=== PATIENT | female | born 1960 | race Caucasian/White ===

== ENCOUNTER 2016-05-31 18:12 | Inpatient (IN) | payer OTHER ==
[~2016-05-31] VITALS: Ht 154.9 cm; Wt 58.8 kg
[~2016-05-31 18:12] MED LIST: AMLO5TAB2 PO; AMT50T PO; ASPI-235 PO; ATOR40TA69 PO; CLOP75TA28 PO; DOXY-232 PO; ERGO500050 PO; HYDR-3740 PO; INSU100V7 SUBQ; LEVO100T97 PO; LISI-567 PO; METO25TA6 PO
[2016-05-31 18:27] VITALS: BP 132/76; PULSE 82; RESP 18; O2SAT 99
[2016-05-31] MEDS ORDERED: Ondansetron 2 mg/mL 2 mL Inj IVPUSH ONE (19:05)
[2016-05-31 19:13] LABS: BASOPHILS % (AUTO) 0.3 % (0-3); EOSINOPHILS % (AUTO) 1.7 % (0-5); Mean Corpuscular Hemoglobin 29.3 pg (27.0-35.0); NEUTROPHILS % (AUTO) 69.1 % (40-74); Platelet Count 436 bil/L (150-400)
--- NOTE | 2016-05-31 19:19 | ED.REPORT ---
HPI-Extremity Problem Lower Date of Service May 31, 2016 ED Provider: Chris Calderon MD Pt is a 55 y.o. female with a hx of DM who presents to the ED from the seo consultant with left foot pain and infected 5th toe. Pt was seen by Dr. Roy today around 1100 and he instructed the pt to come into the ED for antibiotics and pain control and that he would perform an OR amputation on her tomorrow at 1700. Pt states that she has been on a 14 day course of Bactrim that ended today. She denies fever, diaphoresis, and chills. She reports not recieving any pain medication today. Nursing Notes Stated Complaint: LEFT FOOT PAIN Chief Complaint: Extremity Trauma Nursing Notes Reviewed: Yes ([employer], [employer] not reconciled) Allergies: Coded Allergies: Adhesives (Verified Allergy, Severe, Rash, 05/31/16) Blisters, Paper tape okay cranberry (Verified Allergy, Severe, Anaphylaxis, 05/31/16) gabapentin (Verified Allergy, Severe, Neurologic symptoms, 05/31/16) Stroke like symptoms naproxen (Verified Allergy, Severe, RASH, 03/01/16) morphine (Verified Adverse Reaction, Severe, Rash, mouth blisters, 05/31/16) Uncoded Allergies: DISSOLVABLE SUTUTE (Allergy, Unknown, UNKNOWN, 10/30/12) Scheduled Amlodipine (Amlodipine) 5 Mg Tablet 5 MG PO DAILY Aspirin (Lite Coat Aspirin) 325 Mg Tablet 325 MG PO DAILY Atorvastatin Calcium (Atorvastatin Calcium) 40 Mg Tablet 40 MG PO HS Cholecalciferol (Vitamin D3) (Vitamin D3) 50,000 Unit Capsule 50,000 UNIT PO WEEKLY MONDAYS Clopidogrel (Clopidogrel) 75 Mg Tablet 75 MG PO DAILY Insulin Glargine (Lantus U100 Insulin Vial) 100 Unit/Ml Vial 30 UNIT SUBQ HS Levothyroxine (Synthroid) 100 Mcg Tablet 100 MCG PO QAM Lisinopril (Lisinopril) 20 Mg Tablet 20 MG PO DAILY Metoprolol Tartrate (Metoprolol Tartrate) 25 Mg Tablet 25 MG PO BID Trazodone (Trazodone) 50 Mg Tablet 50 MG PO HS Scheduled PRN Hydrocodone-Acetaminophen 5-325 mg (Hydrocodone-Acetaminophen 5-325 mg) 1 Each Tablet 1 EACH PO Q4H PRN PRN For Pain General Time Seen by MD: 19:01 Chief Complaint Foot injury left, Toe injury left 5 Hx Obtained From: Patient Arrived By: Walk-in Onset Occurred: Onset unknown Symptom Duration: Since onset Location: : Foot left: Toe left 5 Quality: Painful Severity: Current: Severe Past Medical History Past Medical History Notes: chronic pain, on chronic opiate usage 03/2016 Past Medical History MRSA (Facial cellulitits, buttock abscess) Dysphagia Sinus problems Peripheral vascular disease Pneumonia (2007) Hiatal hernia Back injury S/P knee scope Reports: Asthma, COPD, Coronary artery disease, Diabetes mellitus, Hyperlipidemia, Hypertension Past Surgical History Heart cath 2001 Heart cath w/ stenting 11/2011 Bilat shoulder repair L ring finger repair R index finger repair Reports: , Carotid endarterectomy, Cataract surgery, Cholecystectomy, Hysterectomy Reports: Carpal tunnel Smoking History Current Every Day Smoker Social History Alcohol Use: "Social" Drug Use: Denies drug use Occupation lives with best friend, retired from [employer] 04/13/2016 Ambulatory Status Independent Review of Systems Constitutional: Denies: Chills, Fever Musculoskeletal: Reports: Extremity pain (Left foot, left 5th toe) Skin: Denies Diaphoresis Complete sys rev & neg: except as marked. Physical Exam Initial Vital Signs Vital Signs (First) Date Time Temp Pulse Resp B/P Pulse Ox O2 Delivery O2 Flow Rate FiO2 05/31/16 18:27 36.1 82 18 132/76 99 Room Air Initial VS: Reviewed, Vital signs normal Head / Eyes: Atraumatic, Normocephalic Abdomen / GI: No distention Upper Extremities: Vascular intact, Neuro intact Skin: Warm, Dry, No cyanosis Neurologic: Alert, Oriented, Nonfocal Psychiatric: Mood/affect normal, Behavior normal, Normal thought content Lower Extremity / Pelvis / MS: Neurologic intact Ascending lypmhangitis below left knee. No appreciable gas. Diminished pulses of DP and PT Toe Exam : Toe Exam: Positive: Erythema present, Toe name... (L fifth) Left 5th toe, open wound and drainage present. General/Constitutional: Awake, Alert, Not toxic appearing Appearance / Presentation: Positive: Appears older than age, Cachectic, Frail, Uncomfortable Respiratory / Chest: Atraumatic, No respiratory distress, No rales, No rhonchi , No wheezing, No retractions Diminished Breath Sounds: Positive: Decreased bilateral Cardiovascular: Heart rate NL, Regular rhythm, Heart sounds NL, No gallop, No murmurs, No rubs Heart Rate / Rhythm: Negative: Tachycardia Interpretation & Diagnostics Lab Results Interpretation Result Diagram: 05/31/16 1905 05/31/16 1905 Test 05/31/16 19:05 05/31/16 19:49 White Blood Count 10.8th/mm3 (3.8-10.1) Red Blood Count 4.60mil/mm3 (3.90-5.20) Hemoglobin 13.5g/dL (12.0-15.6) Hematocrit 39.1% (35.0-46.0) Mean Corpuscular Volume 85.0fL (81-100) Mean Corpuscular Hemoglobin 29.3pg (27.0-35.0) Mean Corpuscular Hemoglobin Concent 34.5% (32.0-37.0) Red Cell Distribution Width 12.2% (12.3-15.4) Platelet Count 436bil/L (150-400) Neutrophils (%) (Auto) 69.1% (40-74) Lymphocytes (%) (Auto) 21.6% (14-46) Monocytes (%) (Auto) 7.0% (4-12) Eosinophils (%) (Auto) 1.7% (0-5) Basophils (%) (Auto) 0.3% (0-3) Erythrocyte Sedimentation Rate 57mm/hr (0-40) Prothrombin Time 9.4sec (8.1-12.5) Prothromb Time International Ratio 0.88ratio Sodium Level 132mEq/L (134-144) Potassium Level 4.0mEq/L (3.5-5.2) Chloride Level 93mEq/L (97-108) Carbon Dioxide Level 27mmol/L (18-29) Blood Urea Nitrogen 19mg/dL (6-24) Creatinine 0.75mg/dL (0.57-1.00) Estimat Glomerular Filtration Rate 115mL/min (>59) Glucose Level 314mg/dL (60-99) Lactic Acid Level 1.3mmol/L (0.4-2.0) Calcium Level 9.2mg/dL (8.5-10.1) Total Bilirubin 0.2mg/dL (0.0-1.2) Aspartate Amino Transf (AST/SGOT) 13U/L (0-50) Alanine Aminotransferase (ALT/SGPT) 11U/L (0-32) Alkaline Phosphatase 152U/L (25-150) Total Protein 7.4g/dL (6.4-8.4) Albumin 3.5g/dL (3.4-5.0) Hold [place] Top Tube Received (Received) Hold Urine Received (Received) X-Ray Interpretation Xray Interpretation: IMPRESSION: Findings suspicious for osteomyelitis of the proximal phalanx of the fifth digit with overlying soft tissue swelling suspicious for cellulitis. Dictated by: Elma Tang M.D. on 05/31/2016 at 20:11 Approved by: Elma Tang M.D. on 05/31/2016 at 20:11 X-Ray Ordered: Foot left Re-Eval/Medical Decision Source of Hx: Old records Consultation : Referral / Consult Name: Eddie Agee MD Call Returned at: 19:30 Planetarium Technician: Accepts admit Note: Discussed pt condition, accepts admit. Counseled Regarding: Diagnosis, Lab results, Need for admission Discharge & Departure Impression: Primary Impression: Diabetic foot infection Additional Impression: Ascending lymphangitis Disposition: ADMITTED TO HOSPITAL Discharge Condition All VS Reviewed: Yes Condition: Stable Referrals: Iraj Hunter (PCP) [place] Attestation Portions of this note were transcribed by Estevan Baires. I, Dr. Calderon personally performed the history, physical exam and medical decision-making; I reviewed and confirmed the accuracy of the information in the transcribed note. Signed by: Destiny Christopher, 05/31/2016 and 2108. copies to: Iraj Hunter Matthew F MD May 31, 2016 19:19 ESTEVAN BAIRES May 31, 2016 19:31
[2016-05-31] MEDS ORDERED: HYDR-4003 PO (19:20)
[2016-05-31] MEDS ORDERED: Vancomycin Dose per Pharmacist XX ONE (19:20)
[2016-05-31] MEDS ORDERED: Piperacillin-Tazo 3.375 Gm Inj 3.375 GM in Dextrose 5% Minibag Plus 50 ML IV ONE (19:20)
[2016-05-31] MEDS ORDERED: TRAZ-115 PO (19:20)
[2016-05-31] MEDS ORDERED: CHOL500050 PO (19:21)
[2016-05-31 19:32] LABS: ERYTHROCYTE SEDIMENTATION RATE 57 mm/hr (0-40)
[2016-05-31] MEDS: HYDROmorphone 1 mg/mL Inj IVPUSH PRN ×2 (19:32→20:05)
[2016-05-31 19:36] LABS: INR 0.88 ratio
[2016-05-31 20:08] VITALS: BP 105/57; PULSE 82; O2SAT 98
--- NOTE | 2016-05-31 20:12 | DRSVH ---
PROCEDURE: X-RAY LEFT FOOT COMPLETE, MINIMUM THREE VIEWS ([id number]) INDICATIONS: pain TECHNIQUE: 3 views of the foot were acquired. COMPARISON: None. FINDINGS: Bones: Cortical thinning and bony irregularity is present throughout the proximal phalanx of the fift h digit. These findings are most severe at the distal aspect of the proximal phalanx. No other bony a bnormalities. Soft tissues: There is marked soft tissue swelling of the fifth digit. Additionally, heterotopic ossi fication is present adjacent to the distal aspect of the proximal phalanx. IMPRESSION: Findings suspicious for osteomyelitis of the proximal phalanx of the fifth digit with ove rlying soft tissue swelling suspicious for cellulitis. Dictated by: Elma Tang M.D. on 05/31/2016 at 20:11 Approved by: Elma Tang M.D. on 05/31/2016 at 20:11
[2016-05-31 20:32] VITALS: BP 105/57; PULSE 82; O2SAT 98
[2016-05-31] MEDS ORDERED: 0.9% Sodium Chloride 1,000 ML IV SCH (20:44)
[2016-05-31] MEDS: Dextrose 5% 500 ML IV SCH (20:44)
[2016-05-31] MEDS ORDERED: Ondansetron 2 mg/mL 2 mL Inj IVPUSH PRN (20:45)
[2016-05-31] MEDS ORDERED: Alum-Mag Hydrox-Simeth 30 mL Suspension PO PRN (20:45)
[2016-05-31 21:03] LABS: APPEARANCE,URINE CLEAR (CLEAR,HAZY); COLOR,URINE YELLOW (YELLOW); OCCULT BLOOD,URINE NEGATIVE (NEGATIVE); UROBILINOGEN,URINE NORMAL (NORMAL)
--- NOTE | 2016-05-31 21:15 | PCM.HPMED ---
Subjective Date of Service May 31, 2016 Primary Provider: Admitting Physician: Eddie Agee MD Primary Care Physician: Iraj Hunter Attending Physician: Eddie Agee MD Chief Complaint: Left foot pain History of Present Illness: Pt is a 55 y.o. female with a hx of DM who presents to the ED from the hand tube bender with left foot pain and infected 5th toe. Pt was seen by Dr. Roy today around 1100 and he instructed the pt to come into the ED for antibiotics and pain control and that he would perform an OR amputation on her tomorrow at 1700. Pt states that she has been on a 14 day course of Bactrim that ended today. She denies fever, diaphoresis, and chills. She reports not recieving any pain medication today. Review of Systems: Gen.: No fevers chills weight loss weight gain Eyes: no visual disturbances or blurring vision HEENT: No nose/throat drainage, no pain in ears or throat, no hearing loss Lymph: No lymph nodes noted Cardiac: No chest pain, orthopnea, PND, palpitations , pedal edema or dyspnea on exertion Pulmonary: no cough, wheezing or bringing up of sputum GI: No anorexia nausea vomiting blood or black in the stool : no dysuria hematuria urinary frequency or decrease in urine output Musculoskeletal: Joint swelling no joint pain no new muscle aches or back pain Neuro: No syncope, seizures no loss of consciousness no new focal weakness, numbness or tingling Psychiatric: New new anxiety insomnia or depression Endocrine: No new heat or cold intolerances polyuria or polydipsia Hematology: No lymphadenopathy or easy bleeding or bruising noted skin: No new rashes, stasis dermatitis Allergies Coded Allergies: Adhesives (Verified Allergy, Severe, Rash, 05/31/16) Blisters, Paper tape okay cranberry (Verified Allergy, Severe, Anaphylaxis, 05/31/16) gabapentin (Verified Allergy, Severe, Neurologic symptoms, 05/31/16) Stroke like symptoms naproxen (Verified Allergy, Severe, RASH, 03/01/16) Amitriptyline (Verified Allergy, Intermediate, hypertension, 05/31/16) morphine (Verified Adverse Reaction, Severe, Rash, mouth blisters, 05/31/16) Uncoded Allergies: DISSOLVABLE SUTUTE (Allergy, Unknown, UNKNOWN, 10/30/12) Home Medications Amlodipine (Amlodipine) 5 Mg Tablet 5 MG PO DAILY Aspirin (Lite Coat Aspirin) 325 Mg Tablet 325 MG PO DAILY Atorvastatin Calcium (Atorvastatin Calcium) 40 Mg Tablet 40 MG PO HS Cholecalciferol (Vitamin D3) (Vitamin D3) 50,000 Unit Capsule 50,000 UNIT PO WEEKLY MONDAYS Clopidogrel (Clopidogrel) 75 Mg Tablet 75 MG PO DAILY Insulin Glargine (Lantus U100 Insulin Vial) 100 Unit/Ml Vial 30 UNIT SUBQ HS Levothyroxine (Synthroid) 100 Mcg Tablet 100 MCG PO QAM Lisinopril (Lisinopril) 20 Mg Tablet 20 MG PO DAILY Metoprolol Tartrate (Metoprolol Tartrate) 25 Mg Tablet 25 MG PO BID Trazodone (Trazodone) 50 Mg Tablet 50 MG PO HS Scheduled PRN Hydrocodone-Acetaminophen 5-325 mg (Hydrocodone-Acetaminophen 5-325 mg) 1 Each Tablet 1 EACH PO Q4H PRN PRN For Pain PMH Type 2 diabetes. hypertension. History of MRSA with facial cellulitis, buttocks abscess. Peripheral vascular disease. History of cardiac cath with stenting 2011. History of bilateral shoulder repair. History of . R Carotid endarterectomy. SOCIAL HISTORY: Smoking half pack per day. Alcohol occasional. Denies any other drug use. FAMILY MEDICAL HISTORY: History of diabetes present in family. Social History Hx Alcohol Use: Yes (1 per week) Hx Substance Use: No (positive urine tox screen 12/2015 for meth,amphetamines, benzo) Hx Tobacco Use: Yes (1-1.5 pack per day) Smoking Status: Current Every Day Smoker Exam Vital Signs Vital Sign - Last Date Time Temp Pulse Resp B/P Pulse Ox O2 Delivery O2 Flow Rate FiO2 05/31/16 20:32 82 105/57 98 Room Air 05/31/16 18:27 36.1 18 Exam Gen.- A+ O 3 no apparent distress. Eyes- open conjunctiva clear, pupils equal nonicteric ENT- ears normal, nose normal Neck- supple/trach midline CVS- RRR no murmur or gallop Lungs CTA GI- NABS/NT soft Musc- moving 4 no obvious deformity Neuro- cranial nerves II through XII intact to gross examination, nonfocal Skin- warm and dry Psych- pleasant and appropriate, Lab and Diagnostics Labs AST/ALT WNL, alkaline phosphatase 152, PT/INR 9.4/0.88, UA clear Result Diagram: 05/31/16190405/31/161904 X-Rays, CTs and MRIs X-RAY LEFT FOOT COMPLETE, MINIMUM THREE VIEWS Findings suspicious for osteomyelitis of the proximal phalanx of the fifth digit with overlying soft tissue swelling suspicious for cellulitis. 12-lead ECG No EKG, one will be ordered preop Assessment & Plan 55-year-old diabetic smoker sent in by the dietary, Dr Ryo, for intervention probably disarticulation fifth digit left foot. We will get preop EKG. She tells me she has not been taking Plavix so she can probably go to surgery it has been 2 weeks. Not clear whether she has been taking her aspirin. Osteomyelitis left foot-apparently patient already had ascending lymphangitis but is clinically much better now. He is gotten dose of Zosyn and vancomycin I am going to continue those until postoperative. Ordering Doppler studies arterial of legs probably ABIs as well as patient is having surgery and having ample blood flow in order to get good healing is essential in assessing where procedure should be instituted how high up. Diabetes-check HG A1c, I am lowering her Lantus dose to 20 units and adding prandial insulin along with medium dose sliding scale. Htn/lipids/cad-continue home lisinopril, metoprolol, atorvastatin. Since it has been over 4 years since her last stent I think she can discontinue her clopidogrel gel altogether but should resume her aspirin immediately postoperatively. Neuropathy/acute pain-patient is had adverse reaction now allergy to Elavil and did not tolerate gabapentin, trying Lyrica. SUPERVISOR EPOXY FABRICATION written from emergency room Tobacco abuse-recommended cessation, nicotine replacement Cerebrovascular disease-patient wants to know how her carotids are doing, she was due a few years ago she states so getting demetrio-carotid Doppler to assess her R-sided CEA and to see if there has been progression of the 60+% stenosis she says she had on the left. Constipation-vigorous bowel regimen with Senokot and Colace and Dulcolax and milk of magnesia when necessary Prophylaxis-DVT Lovenox postop when approved by surgery. Possibly SCD on the right but certainly not the left, GI prophylaxis with famotidine Disposition- patient is from home she is a full code Greater in 60 minutes spent admitting this medically complex patient Eddie Agee MD May 31, 2016:15
[2016-05-31 21:24] VITALS: BP 110/61; PULSE 89; RESP 20; O2SAT 97
[2016-05-31] MEDS ORDERED: Polyethylene Glycol (PEG) 17 Gm Powder PO PRN (21:25)
[2016-05-31] MEDS ORDERED: Insulin GLARgine 100 Unit/mL Syringe SUBQ ONE (22:00)
[2016-05-31] MEDS: HYDROcodone-APAP 5-325 mg Tablet PO PRN (22:08)
[2016-05-31] MEDS: 0.9% Sodium Chloride 1,000 ML IV SCH (22:09)
[2016-05-31] MEDS: HYDROmorphone PCA 0.2 mg/mL 30 mL Inj IV PRN (22:23)
[2016-05-31] MEDS ORDERED: Magnesium Hydroxide 355 mL Oral Suspension PO PRN (23:05)
--- NOTE | 2016-05-31 23:08 | NUR ---
Admit report received from Fadia Donovan in the ED Pt arrived on the unit at 1429. pt arrived to room 248 via gurney with ER staff, she was able to stand and transfer herself to the bed. VSS. Oxygen sats stable on RA, denies SOB. Reports 7/10 pain in her left toes. Gave PO pain medication and started IV AIR CREW OFFICER per order. CPOX on. IV fluids infusing at 100ml/hr. Alert and oriented x3. . oriented to room, and how to use the telephone in her room. will continue to monitor.
[2016-05-31] MEDS ORDERED: Glucose 40% Oral Gel 15 Gm Tube PO PRN (23:10)
[2016-06-01] VITALS (16 sets, daily range): BP systolic 94–149; BP diastolic 53–83; PULSE 79–104; RESP 12–18; O2SAT 95–100
[2016-06-01] MEDS: Sodium Chloride LOK Flush 10 mL Syringe IVFLUSH SCH ×3 (00:30→15:56)
--- NOTE | 2016-06-01 02:13 | PCM.CONPHA ---
Subjective Date of Service: Jun 01, 2016 Requesting Provider: Eddie Agee MD Reason for Pharmacy Consult: Vancomycin Dosing Objective Vital Signs Date Time Temp Pulse Resp B/P Pulse Ox O2 Delivery O2 Flow Rate FiO2 06/01/16 01:25 36.7 84 18 118/68 99 Room Air 05/31/16 21:24 37.1 89 20 110/61 97 Room Air 05/31/16 20:32 82 105/57 98 Room Air 05/31/16 20:08 82 105/57 98 Room Air 05/31/16 18:27 36.1 82 18 132/76 99 Room Air Weight (Kilograms): 58.800 Height (Feet): 5 Height (Inches): 1.00 Test 05/31/16 19:05 05/31/16 19:49 White Blood Count 10.8th/mm3 (3.8-10.1) Red Blood Count 4.60mil/mm3 (3.90-5.20) Hemoglobin 13.5g/dL (12.0-15.6) Hematocrit 39.1% (35.0-46.0) Mean Corpuscular Volume 85.0fL (81-100) Mean Corpuscular Hemoglobin 29.3pg (27.0-35.0) Mean Corpuscular Hemoglobin Concent 34.5% (32.0-37.0) Red Cell Distribution Width 12.2% (12.3-15.4) Platelet Count 436bil/L (150-400) Neutrophils (%) (Auto) 69.1% (40-74) Lymphocytes (%) (Auto) 21.6% (14-46) Monocytes (%) (Auto) 7.0% (4-12) Eosinophils (%) (Auto) 1.7% (0-5) Basophils (%) (Auto) 0.3% (0-3) Erythrocyte Sedimentation Rate 57mm/hr (0-40) Prothrombin Time 9.4sec (8.1-12.5) Prothromb Time International Ratio 0.88ratio Sodium Level 132mEq/L (134-144) Potassium Level 4.0mEq/L (3.5-5.2) Chloride Level 93mEq/L (97-108) Carbon Dioxide Level 27mmol/L (18-29) Blood Urea Nitrogen 19mg/dL (6-24) Creatinine 0.75mg/dL (0.57-1.00) Estimat Glomerular Filtration Rate 115mL/min (>59) Glucose Level 314mg/dL (60-99) Lactic Acid Level 1.3mmol/L (0.4-2.0) Calcium Level 9.2mg/dL (8.5-10.1) Total Bilirubin 0.2mg/dL (0.0-1.2) Aspartate Amino Transf (AST/SGOT) 13U/L (0-50) Alanine Aminotransferase (ALT/SGPT) 11U/L (0-32) Alkaline Phosphatase 152U/L (25-150) Total Protein 7.4g/dL (6.4-8.4) Albumin 3.5g/dL (3.4-5.0) Hold [place]ado Top Tube Received (Received) Urine Color Yellow (YELLOW) Urine Appearance Clear (CLEAR,HAZY) Urine pH 6.0 (5.0-8.0) Urine Specific [place] 1.010 (1.003-1.035) Urine Protein Negativemg/dL (NEG,TRACE) Urine Glucose (UA) 1000mg/dL (NEGATIVE) Urine Ketones Negativemg/dL (NEGATIVE) Urine Occult Blood Negative (NEGATIVE) Urine Nitrite Negative (NEGATIVE) Urine Bilirubin Negative (NEGATIVE) Urine Urobilinogen Normalmg/dL (NORMAL) Urine Leukocyte Esterase Negative (NEGATIVE) Urine RBC 0-2/hpf (0-2) Urine WBC 0-5/hpf (0-5) Urine Epithelial Cells Occasional/hpf (NONE-MOD) Urine Crystals None seen (NONE SEEN) Urine Bacteria None/hpf (NONE-FEW) Urine Hyaline Casts None/lpf (NONE) Urine Granular Casts None seen (NONE SEEN) Urine Waxy Casts None seen (NONE SEEN) Urine Red Blood Cell Casts None seen (NONE SEEN) Urine White Blood Cell Casts None seen (NONE SEEN) Urine Mucus None seen (None Seen) Urine Trichomonas None seen (NONE SEEN) Urine Yeast None (NONE SEEN) Urinalysis Comment None Urine Culture Reflexed Not indicated Hold Urine Received (Received) Assessment/Plan Assessment/Plan A: * Vancomycin dosing for 55 y/o diabetic woman with osteomyelitis of the foot * The patient received a vancomycin 1250 mg IV loading dose in the ED * She is also being started on Zosyn * Estimated CrCl is 63 mL/min (Cockcroft & Gault) * Estimated vancomycin half-life is 12 hours and estimated Vd is 41 liters P: * Dosing vancomycin at 750 mg IV every 12 hours * This dose is estimated to result in a trough of about 19 mcg/mL * Target vancomycin trough range of 15 - 20 mcg/mL * Drawing a trough level prior to the fourth dose Thank you. Pharmacy will continue to follow. Gala Lee, PharmD Gala Lee Jun 01, 2016 02:13
[2016-06-01] MEDS: Piperacillin-Tazo 3.375 Gm Inj 3.375 GM in Dextrose 5% Minibag Plus 50 ML IV SCH ×3 (03:16→22:26)
[2016-06-01] MEDS: Insulin LISPRO 300 Unit/3 mL Inj SUBQ SCH ×5 (08:00→22:00)
[2016-06-01] MEDS: Vancomycin Dose per Pharmacist XX SCH (08:30)
[2016-06-01] MEDS ORDERED: Famotidine Inj 20 MG in IV Premix 1 EACH IV SCH (08:30)
--- NOTE | 2016-06-01 09:03 | NUR ---
Social Work: Screening Data: Pt is a 55 y/o female admitted for diabetic foot infection. Pt's PCP is Dr Hunter, pt's insurance is [employer]. Pt readmit score is not listed. EMR reviewed, no d/c planning needs anticipated at this time. PAYROLL AND BENEFITS ASSISTANT will follow for possible ABX need. PAYROLL AND BENEFITS ASSISTANT will continue to follow if needs arise. Assessment: Pt who is independent at baseline. Plan: Pt will d/c home via POV when medically stable. PAYROLL AND BENEFITS ASSISTANT will follow for possible ABX need. No d/c planning needs anticipated at this time. PAYROLL AND BENEFITS ASSISTANT will continue to follow if needs arise. LALIT Gunderson
[2016-06-01] MEDS: 0.9% Sodium Chloride 1,000 ML IV SCH ×2 (09:18→17:22)
[2016-06-01 09:59] LABS: Mean Corpuscular Hemoglobin 29.2 pg (27.0-35.0); Mean Corpuscular Volume 86.5 fL (81-100)
--- NOTE | 2016-06-01 10:53 | DRSVH ---
PROCEDURE: US DUPLEX DOPPLER UNILATERAL LEG ARTERIES, LEFT INDICATIONS: history of stenosis left, endarterectomy right TECHNIQUE: Color and pulse Doppler interrogation was performed of the left lower extremity arterial system, with image documentation. COMPARISON: None. FINDINGS: Vascular Ultrasound Procedure Report Findings(Artery of Lower Extremity)(Left) Common Femoral Artery(Distal) Velocity: 240.40 cm/s Profunda Femoris Artery(Proximal) Velocity: 99 cm/s Superficial Femoral Artery(Proximal) Velocity: 193.20 cm/s, 232.50 cm/s Superficial Femoral Artery(Mid-longitudinal) Velocity: 105.30 cm/s, 152 cm/s, 165.70 cm/s Superficial Femoral Artery(Distal) Velocity: 98.30 cm/s Popliteal Artery(Mid-longitudinal) Velocity: 209.40 cm/s Posterior Tibial Artery(Distal) Velocity: 14.70 cm/s Dorsalis Pedis Artery(Distal) Velocity: 68.80 cm/s Greyscale findings: Significant plaque is identified IMPRESSION: 1. Increased velocity focus within the popliteal artery suggestive of moderate stenosis. If clinicall y indicated, MRA may be obtained for additional evaluation. 2. Monophasic flow is noted throughout significant portions of lower extremity suggestive of diffuse disease. Dictated by: Kari Oates M.D. on 06/01/2016 at 10:52 Approved by: Kari Oates M.D. on 06/01/2016 at 10:52
--- NOTE | 2016-06-01 10:55 | DRSVH ---
PROCEDURE: US BILATERAL DUPLEX DOPPLER IMAGING OF THE CAROTIDS ([id number]) INDICATIONS: history of stenosis left, endarterectomy right TECHNIQUE: Color and pulse Doppler interrogation was performed of both carotid systems, with image documentation and velocity measurements. COMPARISON: None. FINDINGS: All stenosis calculations are based on NASCET criteria. Right side: Brachial blood pressure: 139/72 mm Hg. Common Carotid Artery(Distal) PSV: 98.20 cm/s Internal Carotid Artery PSV- Proximal: 96.50 cm/s Mid-lon.70 cm/s Distal: 98.20 cm/s EDV - Proximal: 28.60 cm/s Mid-lon.80 cm/s Distal: 37 cm/s External Carotid Artery(Proximal) PSV: 265.30 cm/s ICA/CCA PSV ratio: 1.0 Crooks scale imaging description: Minimal plaque at the bifurcation. Percent internal carotid artery stenosis: Less than 50%. Vertebral artery: Flow direction is antegrade. Left side: Brachial blood pressure: Not obtained Common Carotid Artery(Distal) PSV: 96.90 cm/s Internal Carotid Artery PSV - Proximal: 281.30 cm/s Mid-lon.90 cm/s Distal: 128.50 cm/s EDV - Proximal: 64.80 cm/s Mid-lon.20 cm/s Distal: 21.60 cm/s External Carotid Artery(Proximal) PSV: 225.80 cm/s ICA/CCA PSV ratio: 2.9 Crooks scale imaging description: Moderate to severe plaque at the bifurcation. Percent internal carotid artery stenosis: 70% to near occlusion. Vertebral artery: Flow direction is antegrade. IMPRESSION: 1. Less than 50% stenosis of the internal carotid artery on the right and 70% to near occlusion on th e left. Dictated by: Kari Oates M.D. on 06/01/2016 at 10:54 Approved by: Kari Oates M.D. on 06/01/2016 at 10:54
[2016-06-01] MEDS ORDERED: fentaNYL-PF 50 mCg/mL 2 mL Inj ONE (12:48)
[2016-06-01] MEDS ORDERED: Lidocaine PF 1% 30 mL Inj ONE (13:27)
[2016-06-01] MEDS ORDERED: Propofol 10,000 mCg/mL 20 mL Inj ONE (13:27)
[2016-06-01] MEDS: HYDROmorphone PCA 0.2 mg/mL 30 mL Inj IV PRN (14:02)
--- NOTE | 2016-06-01 17:36 | PCM.HPANE ---
Patient Data Date of Service: Jun 01, 2016 Surgeon Admitting Provider:Eddie Agee MD Attending Provider:Eddie Agee MD Primary Care Physician:Iraj Hunter Other Provider: Reason for Visit Diabetic Foot Infection Ht/WT & BMI Height (Feet): 5 Height (Inches): 1.00 Weight (Kilograms): 58.800 Body Mass Index 24.47 Allergies Coded Allergies: Adhesives (Verified Allergy, Severe, Rash, 05/31/16) Blisters, Paper tape okay cranberry (Verified Allergy, Severe, Anaphylaxis, 05/31/16) gabapentin (Verified Allergy, Severe, Neurologic symptoms, 05/31/16) Stroke like symptoms naproxen (Verified Allergy, Severe, RASH, 03/01/16) amitriptyline (Verified Allergy, Intermediate, hypertension, 05/31/16) morphine (Verified Adverse Reaction, Severe, Rash, mouth blisters, 05/31/16) Uncoded Allergies: DISSOLVABLE SUTUTE (Allergy, Unknown, UNKNOWN, 10/30/12) Past Anesthesia History Anesthesia History: Denies:: Abnormal Airway, Anesthesia Reactions, Difficult Intubation, Fam Anesthesia Reaction, Fam Malignant Hypertherm Diabetes History Hx Diabetes?: Yes Type of Diabetes: Type II Glycemic Control: Insulin Dependent Current Bedside Blood Glucose: 214 MRSA MRSA: Yes (FACIAL CELLULITIS,BUTTOCK ABCESS, NARES) Medications Hypertension Medication: Yes Date Beta Bobo Taken: Jun 01, 2016 Time Beta Bobo Taken: 09:31 Active Scripts Insulin Glargine (Lantus U100 Insulin Vial)100 Unit/Ml Vial30 Unit SUBQ HS 30 Days Prov:Pancho Zacarias MD 04/17/16 Clopidogrel 75 Mg Umpxsk02 Mg PO DAILY #30 TABLET Prov:Pancho Zacarias MD 04/17/16 Metoprolol Tartrate 25 Mg Phozse97 Mg PO BID #60 TABLET Prov:Pancho Zacarias MD 04/17/16 Atorvastatin Calcium 40 Mg Qpjznj01 Mg PO HS #30 TABLET Prov:Pancho Zacarias MD 04/17/16 Amlodipine 5 Mg Tablet5 Mg PO DAILY #30 TABLET Prov:Pancho Zacarias MD 04/17/16 Lisinopril 20 Mg Tuvcfk62 Mg PO DAILY #30 TABLET Ref 0 Prov:Pancho Zacarias MD 04/17/16 Reported Medications Cholecalciferol (Vitamin D3) (Vitamin D3)50,000 Unit Euiwmte95,000 Unit PO WEEKLY Mondays05/31/16 Hydrocodone-Acetaminophen 5-325 mg 1 Each Tablet1 Each PO Q4H PRN For Pain 05/31/16 Trazodone 50 Mg Fugzyt38 Mg PO HS 05/31/16 Aspirin (Lite Coat Aspirin)325 Mg [id number] Mg PO DAILY 04/13/16 Levothyroxine (Synthroid)100 Mcg [id number] Mcg PO QAM Ref 0 02/28/16 Discontinued Reported Medications Amitriptyline 50 Mg Tab50 Mg PO HS Ref 0 04/13/16 Ergocalciferol (Vitamin D2) (Drisdol)50,000 Unit Diyeiau75,000 Unit PO Q7D Sunday02/28/16 Discontinued Scripts Doxycycline Monohyd 100 Mg Ojfypf241 Mg PO BID #14 TABLET Ref 0 Prov:Pancho Zacarias MD 04/17/16 Hydrocodone-Acetaminophen 10-325 mg 1 Each Tablet1 Tablet PO Q4H PRN For Pain # 10 TABLET Prov:Pancho Zacarias MD 04/17/16 History History of ENT Problems?: Yes HEENT History: Positive for:: Cataracts (removed 06/2014) Dysphagia (difficulty swallowing, no hx choking) Sinus Problem (MRSA) Denies:: Abnormal Airway Difficult Intubation Hearing Problem (left ear draining lesion current admission problem) TMJ Hx of Heart Problems?: Yes Cardiovascular History: Positive for:: Cardiac Surgery (stents) Chest Pain (Hx of 4 cardiac stents) Edema Hypertension Denies:: AICD Abdominal Aortic Aneurism Atrial Fibrillation Congestive Heart Failure Heart Murmur Irregular Heartbeat Pacemaker Rheumatic Fever Thrombophlebitis Valvular Heart Disease Hx of Respiratory Problem?: Yes Respiratory History: Positive for:: Cough Pneumonia (pst hx of) Denies:: Asthma COPD Chest Surgery Dyspnea Emphysema Hemoptysis Oxygen Administration Pulmonary Embolism Tuberculosis Use of C-PAP Machine (does not tolerate) Hx Neurologic Problems?: No Neurological History: Denies:: Alzheimer's Disease CVA Dementia Dizziness Headaches Multiple Sclerosis Parkinson's Disease Seizures Hx of GI Problems?: No Gastrointestinal History: Denies:: Cirrhosis Diverticulitis Gastroesphageal Reflux Gastrointestinal Bleeding Heartburn Hepatitis Hiatal Hernia Rectal Bleeding Hx of Problems?: No Genitourinary History: Positive for:: Urinary Tract Infection (past hx of) Denies:: HX of Hemodialysis Kidney Stones HX of Peritoneal Dialysis: No Female Hx: Positive for:: Problems with Breasts? (hx breast cyst) Denies:: Currently Endometriosis Pelvic Inflammatory Skin History: Positive for:: History Skin Disorders? (draining wound left ear) Denies:: Pressure Ulcers Hx Musculoskeletal Problems?: Yes Musculoskeletal History: Positive for:: Back Injury (degenerative disk disease ) Musculoskeletal Trauma Denies:: Degenerative Joint Joint Replacement Systemic Lupus Hx of Psycho/Social Problems?: No Psycho Social History: Denies:: Anxiety Bipolar Disorder Hx Depression Suicide Attempt Hx Surgeries?: Yes (RT CAROTID ENDART,JOSE MARIA,HYST,C/S,CTR,KNEE SCOPE,BILAT SHOULDER RPRS,LT RING) Hx Any Other Health Problems?: Yes Other History: Positive for:: Hospitalization Thyroid Disease (hypothyroidism) Denies:: Cancer Endocrine Disease History Blood Transfusions: Positive for:: Accept Blood Products? Denies:: Blood Transfuse Reaction Blood Transfusions Hx Diabetes: YesBedside Blood Glucose: 214 Hx Alcohol Use: Yes (1 per week)Hx Substance Use: Yes (positive urine tox screen 12/2015 for meth,amphetamines,benzo) Smoking Status: Current Every Day Smoker Have You Smoked inLast 12 mo: Yes Stop/Bang Treated for Sleep Apnea?: No Do You Have a CPAP Machine?: No S-Snoring: Do You Snore Loudly: No T-Tired: feel tired, fatigued: Yes O-Obsered: Observed not breath: No P-Blood Pressure: treated: Yes B- Body Mass Index > 35 kg/m2: No A- Age over 50: Yes N- Neck Large Circumference: No G- Gender Male: No TEJINDER Total Score: 2 TEJINDER Risk Assessment: Low Risk, <3 Yes Risk Assessment Category Category 1A: Patient has history of documented sleep apnea, and HAS NOT received any narcotic, sedative or anesthesia administration during this stay. Category 1B: Patient has history of documented sleep apnea, and HAS received any narcotic , sedative or anesthesia administration during this stay Category 2: Patient has SUSPECTED Obstructive Sleep Apnea, and HAS received any narcotic , sedative or anesthesia administration during this stay. Category 3: Patient has SUSPECTED Obstructive Sleep Apnea and HAS NOT received narcotic, sedative or anesthesia administration during this stay. Category 4: Outpatient in Procedural Areas with known sleep apnea or who screen positive for High Risk via the STOP/BANG questionnaire. Exam Exam Vital Signs Vital Signs Date Time Temp Pulse Resp B/P Pulse Ox O2 Delivery O2 Flow Rate FiO2 06/01/16 16:59 18 97 06/01/16 15:36 36.8 82 18 94/53 97 Room Air General Appearance: Alert, Oriented X3, Cooperative HEENT/AIRWAY: MP 2, Neck Movement (OK), Mouth Opening (Wide, poor dentition) Lungs: Clear to Auscultation, Normal Air Movement Heart: Regular Rate/Rhythm, Normal S1, Normal S2 Meds/Labs/Diagnostics Admission Meds Current Medications Ondansetron HCl 4 mg 4 mg ONCE ONCE IVPUSH Last administered on 05/31/16 19:29 ; Start 05/31/16 at 19:05; Stop 05/31/16 at 19:06; Status DC Piperacillin Sod/ Tazobactam Sod/ Dextrose/Water (Zosyn 3.375 Gm Inj/D5W Minibag Plus) 50 ml @ 100 mls/hr ONCE ONCE IV Last administered on 05/31/16 19:49; Start 05/31/16 at 19:20; Stop 05/31/16 at 19:49; Status DC Pharmacy Consult (Pharmacist Managed Vancomcyin) 1 ea ONCE ONCE XX Last administered on 05/31/16 20:05; Start 05/31/16 at 19:20; Stop 05/31/16 at 19:55; Status DC Nicotine 1 patch 1 patch ONCE ONCE TOPICAL Last administered on 05/31/16 20:05 ; Start 05/31/16 at 19:45; Stop 05/31/16 at 19:46; Status DC Vancomycin HCl/ Dextrose/Water (Vancocin Inj/ D5W) 250 ml @ 166.667 mls/hr OT ONCE IV Last administered on 05/31/16 20:19; Start 05/31/16 at 20:00; Stop at 21:29; Status DC Sodium Chloride 10 ml 10 ml Q8H IVFLUSH Last administered on 06/01/16 09:32; Start 06/01/16 at 00:30 Sodium Chloride (Normal Saline) 1,000 ml @ 100 mls/hr Q10H IV Last administered on 06/01/16 09:18; Start 05/31/16 at 21:22 Famotidine (Pepcid) 20 mg BID PO Last administered on 06/01/16 09:31; Start 06/01/16 at 08:30 Nicotine (Nicoderm 21 mg/ 24 Hr Patch) 1 patch DAILY TOPICAL Last administered on 06/01/16 09:32; Start 06/01/16 at 08:30 Amlodipine Besylate (Norvasc) 5 mg DAILY PO Last administered on 06/01/16 08:30 ; Start 06/01/16 at 08:30 Aspirin (Aspirin) 325 mg DAILY PO Last administered on 06/01/16 09:32; Start at 08:30 Levothyroxine Sodium (Synthroid) 100 mcg 0630 PO Last administered on 06/01/16 06:47; Start 06/01/16 at 06:30 Lisinopril (Zestril) 20 mg DAILY PO Last administered on 06/01/16 09:32; Start 06/01/16 at 08:30 Metoprolol Tartrate (Lopressor) 25 mg BID PO Last administered on 06/01/16 09: 31; Start 06/01/16 at 08:30 Insulin Glargine 10 unit 10 unit HS ONCE SUBQ Last administered on 05/31/16 23 :18; Start 05/31/16 at 22:00; Stop 05/31/16 at 22:01; Status DC Piperacillin Sod/ Tazobactam Sod/ Dextrose/Water (Zosyn 3.375 Gm Inj/D5W Minibag Plus) 50 ml @ 12.5 mls/hr Q8H IV Last administered on 06/01/16 12:18; Start 06/01/16 at 04:00 Pregabalin (Lyrica) 25 mg BID PO Last administered on 06/01/16 09:32; Start 06/01/16 at 08:30 Senna (Senokot) 17.2 mg BID PO Last administered on 06/01/16 09:31; Start at 08:30 Pharmacy Consult 1 ea 1 ea DAILY XX Last administered on 06/01/16 08:30; Start 06/01/16 at 08:30 Vancomycin HCl/ Dextrose/Water (Vancocin Inj/ D5W) 250 ml @ 166.667 mls/hr Q12 IV Last administered on 06/01/16 09:19; Start 06/01/16 at 08:30 Trazodone HCl (Trazodone) 50 mg OT ONCE PO Last administered on 06/01/16t 03:13 ; Start 06/01/16 at 03:10; Stop 06/01/16 at 03:12; Status DC Bedside Blood Glucose: 214 Labs Test 05/31/16 19:05 05/31/16 19:49 06/01/16 09:10 Neutrophils (%) (Auto) 69.1% (40-74) Lymphocytes (%) (Auto) 21.6% (14-46) Monocytes (%) (Auto) 7.0% (4-12) Eosinophils (%) (Auto) 1.7% (0-5) Basophils (%) (Auto) 0.3% (0-3) Erythrocyte Sedimentation Rate 57mm/hr (0-40) Prothrombin Time 9.4sec (8.1-12.5) Prothromb Time International Ratio 0.88ratio Lactic Acid Level 1.3mmol/L (0.4-2.0) Total Bilirubin 0.2mg/dL (0.0-1.2) Aspartate Amino Transf (AST/SGOT) 13U/L (0-50) Alanine Aminotransferase (ALT/SGPT) 11U/L (0-32) Alkaline Phosphatase 152U/L (25-150) Total Protein 7.4g/dL (6.4-8.4) Albumin 3.5g/dL (3.4-5.0) Hold [place] Top Tube Received (Received) Urine Color Yellow (YELLOW) Urine Appearance Clear (CLEAR,HAZY) Urine pH 6.0 (5.0-8.0) Urine Specific [place] 1.010 (1.003-1.035) Urine Protein Negativemg/dL (NEG,TRACE) Urine Glucose (UA) 1000mg/dL (NEGATIVE) Urine Ketones Negativemg/dL (NEGATIVE) Urine Occult Blood Negative (NEGATIVE) Urine Nitrite Negative (NEGATIVE) Urine Bilirubin Negative (NEGATIVE) Urine Urobilinogen Normalmg/dL (NORMAL) Urine Leukocyte Esterase Negative (NEGATIVE) Urine RBC 0-2/hpf (0-2) Urine WBC 0-5/hpf (0-5) Urine Epithelial Cells Occasional/hpf (NONE-MOD) Urine Crystals None seen (NONE SEEN) Urine Bacteria None/hpf (NONE-FEW) Urine Hyaline Casts None/lpf (NONE) Urine Granular Casts None seen (NONE SEEN) Urine Waxy Casts None seen (NONE SEEN) Urine Red Blood Cell Casts None seen (NONE SEEN) Urine White Blood Cell Casts None seen (NONE SEEN) Urine Mucus None seen (None Seen) Urine Trichomonas None seen (NONE SEEN) Urine Yeast None (NONE SEEN) Urinalysis Comment None Urine Culture Reflexed Not indicated Hold Urine Received (Received) White Blood Count 7.3th/mm3 (3.8-10.1) Red Blood Count 4.08mil/mm3 (3.90-5.20) Hemoglobin 11.9g/dL (12.0-15.6) Hematocrit 35.3% (35.0-46.0) Mean Corpuscular Volume 86.5fL (81-100) Mean Corpuscular Hemoglobin 29.2pg (27.0-35.0) Mean Corpuscular Hemoglobin Concent 33.7% (32.0-37.0) Red Cell Distribution Width 12.1% (12.3-15.4) Platelet Count 368bil/L (150-400) Sodium Level 131mEq/L (134-144) Potassium Level 4.6mEq/L (3.5-5.2) Chloride Level 96mEq/L (97-108) Carbon Dioxide Level 22mmol/L (18-29) Blood Urea Nitrogen 18mg/dL (6-24) Creatinine 0.69mg/dL (0.57-1.00) Estimat Glomerular Filtration Rate 126mL/min (>59) Glucose Level 223mg/dL (60-99) Calcium Level 8.6mg/dL (8.5-10.1) Plan Impression Patient chart reviewed, patient interviewed and anesthestic plan with risks, benefits, and alternatives discussed, and informed consent obtained. NPO Status: > 8 hours ASA Physical Status: ASA3 Severe Disease Anesthetic Plan: MAC Bene/Risks/Altern/Consents: Yes HP Complete Prior to Induction: Yes Cristi Wang MD Jun 01, 2016 17:15
[2016-06-01] MEDS ORDERED: Lactated Ringer's 1,000 ML IV SCH (17:52)
[2016-06-01] MEDS ORDERED: Lactated Ringer's 500 ML IV PRN (17:52)
[2016-06-01] MEDS ORDERED: Dexamethasone 4 mg/mL Inj IVPUSH PRN (17:55)
[2016-06-01] MEDS ORDERED: hydrALAZINE 20 mg/mL Inj IVPUSH PRN (17:55)
[2016-06-01] MEDS ORDERED: Atropine 0.4 mg/mL Inj IVPUSH PRN (17:55)
[2016-06-01] MEDS ORDERED: fentaNYL-PF 50 mCg/mL 2 mL Inj IVPUSH PRN (17:55)
[2016-06-01] MEDS ORDERED: EPHEDrine Sulfate 50 mg/mL Inj IVPUSH PRN (17:55)
[2016-06-01] MEDS ORDERED: Labetalol 5 mg/mL 4 mL Inj IV PRN (17:55)
[2016-06-01] MEDS ORDERED: Phenylephrine 10,000 mCg/mL Inj IVPUSH PRN (17:55)
[2016-06-01] MEDS ORDERED: MetoCLOpramide 5 mg/mL 2 mL Inj IVPUSH PRN (17:55)
[2016-06-01] MEDS ORDERED: HYDROmorphone 1 mg/mL Inj IVPUSH PRN (17:55)
[2016-06-01] MEDS ORDERED: Ondansetron 2 mg/mL 2 mL Inj IVPUSH PRN (17:55)
[2016-06-01] MEDS ORDERED: Bupivacaine-MPF 0.5% 30 mL Inj INFILTRATE ONE (18:06)
--- NOTE | 2016-06-01 18:27 | PCM.ANEP1 ---
Post Anesthesia Phase 1 PACU Phase 1 Assessment Date of Service: Jun 01, 2016 Vital Signs PACU: HR 96, RR 12, O2 99% RA, T 36.1, BP 125/66 Vital Signs Date Time Temp Pulse Resp B/P Pulse Ox O2 Delivery O2 Flow Rate FiO2 06/01/16 16:59 18 97 06/01/16 15:36 36.8 82 18 94/53 97 Room Air Anesthetic Administered: MAC Level of Alertness: Sleepy, easy to arouse LYNN's with Equal Strength: Yes Pain: No Nausea or Vomiting: No Oxygen Delivery: Room Air Lungs: Normal Air Movement Cristi Wang MD Jun 01, 2016 18:27
--- NOTE | 2016-06-01 18:30 | PCM.PODPO ---
Podiatry Operative Report Date of Service: Jun 01, 2016 Date of Service Jun 01, 2016 Pre Operative Diagnosis Osteomyelitis of left fifth toe and possible osteomyelitis of left fifth metatarsal head Post Operative Diagnosis Same as preoperative diagnoses Procedure Amputation of left fifth digit with partial fifth metatarsal indication. Washout and debridement left fifth metatarsophalangeal joint ulceration Surgeon Surgeon: Mario Roy Assistants: None Indication for Procedure Osteomyelitis left fifth digit Findings Pathologic fracture of the fifth proximal phalanx with osteonecrosis of the proximal aspect of the fifth proximal phalanx Details of Procedure Patient was identified in the preoperative holding area and preoperative comorbidities and allergies were identified and thoroughly discussed. The patient was transported into the operating room and onto the operating room table in the normal supine position. The patient was then prepped and draped in the normal aseptic technique. Mac anesthesia was induced by the anesthesia service in the preoperative block consisted of 10 mL have percent Marcaine plain was given around the mid shaft of the fifth metatarsal. Attention was first paid to the left fifth digit a #10 blade was used to excise the digit at the level of the metatarsal phalangeal joint through the open ulceration excising the entirety of the fifth digit and surrounding associated skin. A fractured portion of the proximal phalanx was noted and inspection of the proximal aspect of the proximal phalanx revealed osteonecrosis consistent with osteomyelitis. This portion of the bone was sent for pathologic identification. The remainder of the fifth toe was sent for culture. Extensive debridement was performed of the fifth metatarsal phalangeal joint wound with all fibrotic and nonviable soft tissue being excised from the foot completely utilizing a fresh #15 blade. A linear incision was made extending approximately 2 cm up the shaft of the fifth metatarsal this was carried directly down to bone. The metatarsal head was resected utilizing a sagittal saw. The metatarsal head was slightly darkened in color however bone stock was of good consistency and quality. The fifth metatarsal head was sent for pathologic identification. This wound was copiously flushed with large amounts of normal saline. A postoperative block consisting of 10 mL half percent Marcaine plain was performed. A portion of the wound was primarily closed utilizing number 3. 0 Prolene proximally and distally leaving the previous area of ulceration at the metatarsophalangeal joint open for secondary healing. This portion of the wound was packed with quarter-inch iodoform packing gauze. The wound was dressed with Adaptic sterile 4 x 4 gauze and Kerlix. A loosely applied Earnest bandage was applied. The patient was transported out of the operating room. No complications occurred during this procedure. Grafts, Implants: None Complications There were no periprocedural complications identified. Condition Stable Anesthetic Administered: MAC Catheters: None Output, Estimated Blood Loss: 20 Blood Admin during surgery: No Surgical Cast or Splint: None Surgical Specimen Removed: Yes Specimen sent to Pathology: Yes Surgical Specimen description: Fifth toe and metatarsal head Post Operative Plan Transfer back to floors when stable Partial weightbearing left heel for toileting and transfers only Keep dressing clean dry and intact Dressing is to be changed daily Advance diet as tolerated to normal diabetic diet Pain medication as needed for severe pain only Restart inpatient medications per hospitalist service recommendation Mario Roy DPM Jun 01, 2016 18:30
--- NOTE | 2016-06-01 18:30 | PCM.ANEP2 ---
Post Anesthesia Evaluation ASA/CMS Post Anesthesia Date of Service: Jun 01, 2016 VS in Patient's Normal Range?: Yes Resp Stable; Airway Patent?: Yes CV Function & Hydration Stable: Yes Mental Status Recovered?: Yes Pain control Satisfactory?: Yes N/V Control Satisfactory?: Yes Additional Comments Periodic obstruction when sleeping. Started on TEJINDER protocol for post-op Cristi Wang MD Jun 01, 2016 18:30
--- NOTE | 2016-06-01 20:40 | PCM.PNMED ---
Subjective Date of Service Jun 01, 2016 Subjective Not happy about her nothing by mouth status. Pain is controlled. No fevers chills. No nausea vomiting diarrhea or constipation. No chest pain or shortness of breath Exam Vital Signs Vital Sign - Last Date Time Temp Pulse Resp B/P Pulse Ox O2 Delivery O2 Flow Rate FiO2 06/01/16 18:53 37.0 94 18 127/71 97 Room Air Exam General: Alert, Oriented X3, NAD Head: Normocephalic, atraumatic Eyes: LIGIA, EOMI, no scleral Icterus Chest: clear to auscultation B/L, no wheezing rales or rhonchi Heart: Regular rate and rhythm. Normal S1, S2, no murmurs noted Abdomen: soft, non-tender. Bowel sounds are normoactive. No guarding or rebound. Extremities: no cyanosis, clubbing or edema. Left foot bandaged. IVs and Medications Medications Reviewed: Medications were reviewed in detail Lab and Diagnostics Result Diagram: 06/01/16 0910 06/01/16 0910 X-Rays, CTs and MRIs X-RAY LEFT FOOT COMPLETE, MINIMUM THREE VIEWS Findings suspicious for osteomyelitis of the proximal phalanx of the fifth digit with overlying soft tissue swelling suspicious for cellulitis. 12-lead ECG No EKG, one will be ordered preop Assessment & Plan 55-year-old diabetic smoker sent in by podiatry, Dr Roy, for intervention probably disarticulation fifth digit left foot. Plans for I&D today. Osteomyelitis left foot- -apparently patient already had ascending lymphangitis but is clinically much better now. -Continue Zosyn and vancomycin -Doppler studies arterial of legs and ABIs -I&D plan today Diabetes: -checking HG A1c, -lowering her Lantus dose to 20 units -continue prandial insulin along with medium dose sliding scale. Htn/lipids/cad- -continue home lisinopril, metoprolol, atorvastatin. -Since it has been over 4 years since her last stent I think she can discontinue her clopidogrel gel altogether but should resume her aspirin immediately postoperatively. -Neuropathy/acute pain- -patient is had adverse reaction now allergy to Elavil and did not tolerate gabapentin, trying Lyrica. BOMBSIGHT SPECIALIST written from emergency room -Tobacco abuse- -recommended cessation, nicotine replacement -Cerebrovascular disease- -rechecking carotid Dopplers -Previous R-sided CEA a -60+% stenosis she says she had on the left. -Constipation- -vigorous bowel regimen with Senokot and Colace and Dulcolax and milk of magnesia when necessary CODE STATUS: Full code DVT prophylaxis: Lovenox when okay with surgery. Continue SCDs on the right. Disposition: Patient is from home and independent of ADLs. VTE Mechanical Devices: Intermittant Pneumatic CD Kiran Nair DO Jun 01, 2016 20:40
[2016-06-01] MEDS: Dextrose 5% 500 ML IV SCH (20:44)
[2016-06-01] MEDS ORDERED: Insulin GLARgine 100 Unit/mL Syringe SUBQ SCH (21:00)
[2016-06-02] VITALS (9 sets, daily range): BP systolic 122–150; BP diastolic 71–75; PULSE 65–76; RESP 16–18; O2SAT 96–99
[2016-06-02] MEDS: Sodium Chloride LOK Flush 10 mL Syringe IVFLUSH SCH ×2 (00:30→08:30)
[2016-06-02] MEDS: 0.9% Sodium Chloride 1,000 ML IV SCH (02:22)
[2016-06-02] MEDS: HYDROcodone-APAP 5-325 mg Tablet PO PRN (02:27)
[2016-06-02] MEDS: Piperacillin-Tazo 3.375 Gm Inj 3.375 GM in Dextrose 5% Minibag Plus 50 ML IV SCH ×2 (05:06→13:35)
--- NOTE | 2016-06-02 05:15 | NUR ---
pain/Activity pain well controlled with Dilaudid IV CONTROL PANEL OPERATOR CRUDE UNIT, and one time PO Ferney. pt has been ambulating to the restroom with FWW and SBA for the first time after post OP; gait steady. pt ambulated independently to the restroom afterward without calling for assistance. Educated pt to call for assist for safety, but pt declined. CMS intact. Bed is locked and in low position. Call light within reach. will continue to monitor.
[2016-06-02] MEDS ORDERED: Vancomycin Serum Trough XX ONE (08:00)
[2016-06-02 08:17] LABS: Mean Corpuscular Hemoglobin 29.1 pg (27.0-35.0)
[2016-06-02] MEDS: Vancomycin Dose per Pharmacist XX SCH (08:30)
--- NOTE | 2016-06-02 08:51 | NUR ---
Social Work: Continued d/c planning Data: Pt is on day 2 of hospitalization for diabetic food infection. CONSTRUCTION MGR met with pt at bedside to discuss d/c needs. Pt states she lives with a friend who can help her out at d/c for a few weeks and that she does not require any other d/c planning needs. Pt states she has a friend who can drive her home at d/c. Assessment: Pt who is independent at baseline. Plan: Pt will d/c home via POV with friend when medically stable. Pt does not require any other d/c planning needs. Pt states she has a friend who can drive her home at d/c. LALIT Gunderson
--- NOTE | 2016-06-02 09:24 | PCM.PHAPRO ---
Progress Date of Service: Jun 02, 2016 Vancomycin dosing A/ Trough came back 06/02 @0800 at 9.3 . It was drawn correctly. This is below the target range of 15-20 for osteomyelitis. P/ Increasing dosing interval from 750mg q12h to 750mg q8h. Pharmacy will continue to follow daily. Thanks. Stalin Case Jun 02, 2016 09:24
[2016-06-02] MEDS: Insulin LISPRO 300 Unit/3 mL Inj SUBQ SCH ×2 (09:32→12:33)
--- NOTE | 2016-06-02 10:01 | NUR ---
Evaluation completed. Please go to "Notes" then click on "Assessments and Notes" (bottom left corner of screen). Then select appropriate discipline tab on top of screen.
--- NOTE | 2016-06-02 13:59 | PCM.PNPOD ---
Subjective Date of Service: Jun 02, 2016 Date of Service: Jun 02, 2016 Visit Information: Reason for Visit Diabetic Foot Infection Surgery/Surgery Date Post-Op Day # 1 Date of Admission: May 31, 2016 at 20:01 Hospital Day # Subjective: 55-year-old neuropathic diabetic female evaluated at bedside today 1 status post amputation of the left fifth digit and fifth metatarsal head. Patient is resting comfortably in bed. Patient complains of moderate discomfort in her left foot. She denies any recent history of fevers chills nausea or vomiting. Her dressing is clean dry and intact Gastrointestinal: Good Appetite Objective Vital Sign - Last Date Time Temp Pulse Resp B/P Pulse Ox O2 Delivery O2 Flow Rate FiO2 06/02/16 11:40 36.9 69 16 122/71 99 Room Air Intake and Output 06/01/16 06/01/16 06/02/16 Cumulative From/Thru 15:00 23:00 07:00 05/31/16 18:27 - 06/02/16 06:21 Intake Total 1507 ml 1000 ml 1821 ml 4328 ml Output Total 950 ml 420 ml 1150 ml 2520 ml Balance 557 ml 580 ml 671 ml 1808 ml Intake Oral 400 ml 844 ml 1244 ml IV Total 1107 ml 1000 ml 977 ml 3084 ml Output Urine Total 950 ml 400 ml 1150 ml 2500 ml Estimated Blood Loss 20 ml 20 ml # Bowel Movements 0 1 1 Result Diagram: 06/02/16 0800 06/02/16 0800 Lab Test 05/31/16 19:05 05/31/16 19:49 06/02/16 08:00 Neutrophils (%) (Auto) 69.1% (40-74) Lymphocytes (%) (Auto) 21.6% (14-46) Monocytes (%) (Auto) 7.0% (4-12) Eosinophils (%) (Auto) 1.7% (0-5) Basophils (%) (Auto) 0.3% (0-3) Erythrocyte Sedimentation Rate 57mm/hr (0-40) Prothrombin Time 9.4sec (8.1-12.5) Prothromb Time International Ratio 0.88ratio Hemoglobin A1c 12.7% (4.8-5.6) Lactic Acid Level 1.3mmol/L (0.4-2.0) Total Bilirubin 0.2mg/dL (0.0-1.2) Aspartate Amino Transf (AST/SGOT) 13U/L (0-50) Alanine Aminotransferase (ALT/SGPT) 11U/L (0-32) Alkaline Phosphatase 152U/L (25-150) Total Protein 7.4g/dL (6.4-8.4) Albumin 3.5g/dL (3.4-5.0) Hold [place] Top Tube Received (Received) Urine Color Yellow (YELLOW) Urine Appearance Clear (CLEAR,HAZY) Urine pH 6.0 (5.0-8.0) Urine Specific [place] 1.010 (1.003-1.035) Urine Protein Negativemg/dL (NEG,TRACE) Urine Glucose (UA) 1000mg/dL (NEGATIVE) Urine Ketones Negativemg/dL (NEGATIVE) Urine Occult Blood Negative (NEGATIVE) Urine Nitrite Negative (NEGATIVE) Urine Bilirubin Negative (NEGATIVE) Urine Urobilinogen Normalmg/dL (NORMAL) Urine Leukocyte Esterase Negative (NEGATIVE) Urine RBC 0-2/hpf (0-2) Urine WBC 0-5/hpf (0-5) Urine Epithelial Cells Occasional/hpf (NONE-MOD) Urine Crystals None seen (NONE SEEN) Urine Bacteria None/hpf (NONE-FEW) Urine Hyaline Casts None/lpf (NONE) Urine Granular Casts None seen (NONE SEEN) Urine Waxy Casts None seen (NONE SEEN) Urine Red Blood Cell Casts None seen (NONE SEEN) Urine White Blood Cell Casts None seen (NONE SEEN) Urine Mucus None seen (None Seen) Urine Trichomonas None seen (NONE SEEN) Urine Yeast None (NONE SEEN) Urinalysis Comment None Urine Culture Reflexed Not indicated Hold Urine Received (Received) White Blood Count 7.9th/mm3 (3.8-10.1) Red Blood Count 3.75mil/mm3 (3.90-5.20) Hemoglobin 10.9g/dL (12.0-15.6) Hematocrit 33.0% (35.0-46.0) Mean Corpuscular Volume 88.0fL (81-100) Mean Corpuscular Hemoglobin 29.1pg (27.0-35.0) Mean Corpuscular Hemoglobin Concent 33.0% (32.0-37.0) Red Cell Distribution Width 12.2% (12.3-15.4) Platelet Count 349bil/L (150-400) Sodium Level 136mEq/L (134-144) Potassium Level 4.7mEq/L (3.5-5.2) Chloride Level 101mEq/L (97-108) Carbon Dioxide Level 24mmol/L (18-29) Blood Urea Nitrogen 13mg/dL (6-24) Creatinine 0.73mg/dL (0.57-1.00) Estimat Glomerular Filtration Rate 118mL/min (>59) Glucose Level 345mg/dL (60-99) Calcium Level 8.3mg/dL (8.5-10.1) Vancomycin Level Trough 9.3mcg/mL Exam General: Alert, Oriented X3, Cooperative, No Acute Distress Lungs: Normal Air Movement Lower Extremities: Left: Edema localized Extremity warm Lower Extremity Pulses: Palpable: Left Dorsalis Pedis Left Posterior Tibal Right Dorsalis Pedis Right Posterior Tibal Postop Sensory Motor: Distal Motor Intact, Motor 5/5 Podiatry WOUND : Wound Location/Description Left fifth metatarsal ulceration full-thickness to subcutaneous tissue without exposed bone or tendon. There is no surrounding erythema. Previous streaking has resolved. Minimal serosanguineous drainage. No signs of acute infection. Open ulceration measures 2 cm x 2 cm x 0.8 cm. Proximal sutures are intact in place with the incision site Well coapted Surgical Cast or Splint: None Assessment & Plan Impression Stable status post left fifth digit amputation Problems: Plan Dressing changed today the wound was inspected in detail and no further signs of infection are noted. Her wound was dressed with Betadine soaked gauze dry sterile gauze Kerlix and an Earnest bandage applied with mild compression. This dressing will be changed every 48-72 hours by podiatry service only. Patient is weightbearing as tolerated to left heel with limited activity Patient appears stable for discharge at this time from podiatry standpoint suggested discharge on 2 weeks doxycycline by mouth I have discussed with the patient that she is to follow-up with me in the [facility] Sunday06/05/2016 Podiatry will continue to follow up for hours while this patient is admitted Mario Roy DPM Jun 02, 2016 13:59
[2016-06-02] MEDS ORDERED: DOXY100T2 PO (14:08)
[2016-06-02] MEDS ORDERED: TRAM-14 PO (14:08)
--- NOTE | 2016-06-02 14:13 | PCM.DIMED ---
Discharge Instructions Date of Service Jun 02, 2016 Dates of Hospitalization May 31, 2016 at 20:01 Discharge Diagnosis Discharge Diagnosis Left foot osteomyelitis-partial amputation Left carotid artery stenosis, greater than 70%-refer to surgery Diet Diabetic Activity Limited until seen by PCP (weight-bearing on left heel as tolerated) Call your provider Fever or Chills, Shortness of breath, Chest pain, Excessive diarrhea, Weakness ( unilateral) Patient Instructions Follow-up plan Follow-up with Dr. Roy SundayJune 04 at the wound care clinic Follow-up with surgery for consideration of carotid endarterectomy Follow-up with PCP in: 1 week Kiran Nair DO Jun 02, 2016 14:13
--- NOTE | 2016-06-02 15:28 | NUR ---
Discharge IV catheter discontinued fully intact. Tele removed. All personal belongings given to patient. Patient requested RX for Toradol. MD notified and declines to write RX at this time and patient notified. Follow up appointments made for wound care and PCP. Patient brought down to waiting room via WC. 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 Confirmed with rn relief chargeDEEP Foley RN. Total admin from last time frame is 1.5
--- NOTE | 2016-06-02 21:38 | PCM.DC.MED ---
Discharge Summary Date of Service Jun 02, 2016 Dates of Hospitalization Date of Hospital Admission May 31, 2016 at 20:01 Date of Discharge: Jun 02, 2016 Providers: Admitting Physician: Eddie Agee MD Primary Care Physician: Iraj Hunter Attending Physician: Eddie Agee MD Diagnosis at Time of Discharge Diagnosis at Time of Discharge Left foot osteomyelitis-partial amputation Left carotid artery stenosis, greater than 70%-refer to surgery Consultations Podiatry Procedures XRay, CTs & MRIs X-RAY LEFT FOOT COMPLETE, MINIMUM THREE VIEWS Findings suspicious for osteomyelitis of the proximal phalanx of the fifth digit with overlying soft tissue swelling suspicious for cellulitis. Carotid artery ultrasound IMPRESSION: 1. Less than 50% stenosis of the internal carotid artery on the right and 70% to near occlusion on the left. ECG 12 Lead No EKG, one will be ordered preop Brief History Pt is a 55 y.o. 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 Pt was seen by Dr. Roy today around 1100 and he instructed the pt to come into the ED for antibiotics and pain control and that he would perform an OR amputation on her tomorrow at 1700. Pt states that she has been on a 14 day course of Bactrim that ended today. She denies fever, diaphoresis, and chills. She reports not recieving any pain medication today. Hospital Course 55-year-old diabetic smoker sent in by podiatry, Dr Roy, for intervention probably disarticulation fifth digit left foot. Patient was admitted, she was taken to surgery 06/01/2016 and had a partial amputation of her left foot fifth digit. No complications were reported. The patient did very well and the following day she strongly desired discharge home with outpatient follow-up. Her wound was checked by podiatry and her bandage changed. She was instructed to follow-up with podiatry at the wound care clinic on June 04. I discussed the antibiotic of choice with podiatry who recommends a two-week course of doxycycline. Prescription was given to her at discharge. I also discussed with her the results of her carotid artery Doppler which showed greater than 70% stenosis in her left carotid artery. She would like to follow- up with her vascular surgeon who did her right CEA. In addition to that, she will need to follow-up with her PCP within one week, sooner if her condition worsens in anyway. Delineated problem list as below. Osteomyelitis left foot- -apparently patient already had ascending lymphangitis but is clinically much better now. -Continue Zosyn and vancomycin -Doppler studies arterial of legs and ABIs -I&D plan today Diabetes: -checking HG A1c, -lowering her Lantus dose to 20 units -continue prandial insulin along with medium dose sliding scale. Htn/lipids/cad- -continue home lisinopril, metoprolol, atorvastatin. -Since it has been over 4 years since her last stent I think she can discontinue her clopidogrel gel altogether but should resume her aspirin immediately postoperatively. -Neuropathy/acute pain- -patient is had adverse reaction now allergy to Elavil and did not tolerate gabapentin, trying Lyrica. QUILL WINDER written from emergency room -Tobacco abuse- -recommended cessation, nicotine replacement -Cerebrovascular disease- -rechecking carotid Dopplers -Previous R-sided CEA a -60+% stenosis she says she had on the left. -Constipation- -vigorous bowel regimen with Senokot and Colace and Dulcolax and milk of magnesia when necessary Exam Vital Signs (Last) Date Time Temp Pulse Resp B/P Pulse Ox O2 Delivery O2 Flow Rate FiO2 06/02/16 15:52 18 99 06/02/16 11:40 36.9 69 122/71 Room Air Test 05/31/16 19:05 05/31/16 19:49 06/02/16 08:00 Neutrophils (%) (Auto) 69.1% (40-74) Lymphocytes (%) (Auto) 21.6% (14-46) Monocytes (%) (Auto) 7.0% (4-12) Eosinophils (%) (Auto) 1.7% (0-5) Basophils (%) (Auto) 0.3% (0-3) Erythrocyte Sedimentation Rate 57mm/hr (0-40) Prothrombin Time 9.4sec (8.1-12.5) Prothromb Time International Ratio 0.88ratio Hemoglobin A1c 12.7% (4.8-5.6) Lactic Acid Level 1.3mmol/L (0.4-2.0) Total Bilirubin 0.2mg/dL (0.0-1.2) Aspartate Amino Transf (AST/SGOT) 13U/L (0-50) Alanine Aminotransferase (ALT/SGPT) 11U/L (0-32) Alkaline Phosphatase 152U/L (25-150) Total Protein 7.4g/dL (6.4-8.4) Albumin 3.5g/dL (3.4-5.0) Hold [place] Top Tube Received (Received) Urine Color Yellow (YELLOW) Urine Appearance Clear (CLEAR,HAZY) Urine pH 6.0 (5.0-8.0) Urine Specific [place] 1.010 (1.003-1.035) Urine Protein Negativemg/dL (NEG,TRACE) Urine Glucose (UA) 1000mg/dL (NEGATIVE) Urine Ketones Negativemg/dL (NEGATIVE) Urine Occult Blood Negative (NEGATIVE) Urine Nitrite Negative (NEGATIVE) Urine Bilirubin Negative (NEGATIVE) Urine Urobilinogen Normalmg/dL (NORMAL) Urine Leukocyte Esterase Negative (NEGATIVE) Urine RBC 0-2/hpf (0-2) Urine WBC 0-5/hpf (0-5) Urine Epithelial Cells Occasional/hpf (NONE-MOD) Urine Crystals None seen (NONE SEEN) Urine Bacteria None/hpf (NONE-FEW) Urine Hyaline Casts None/lpf (NONE) Urine Granular Casts None seen (NONE SEEN) Urine Waxy Casts None seen (NONE SEEN) Urine Red Blood Cell Casts None seen (NONE SEEN) Urine White Blood Cell Casts None seen (NONE SEEN) Urine Mucus None seen (None Seen) Urine Trichomonas None seen (NONE SEEN) Urine Yeast None (NONE SEEN) Urinalysis Comment None Urine Culture Reflexed Not indicated Hold Urine Received (Received) White Blood Count 7.9th/mm3 (3.8-10.1) Red Blood Count 3.75mil/mm3 (3.90-5.20) Hemoglobin 10.9g/dL (12.0-15.6) Hematocrit 33.0% (35.0-46.0) Mean Corpuscular Volume 88.0fL (81-100) Mean Corpuscular Hemoglobin 29.1pg (27.0-35.0) Mean Corpuscular Hemoglobin Concent 33.0% (32.0-37.0) Red Cell Distribution Width 12.2% (12.3-15.4) Platelet Count 349bil/L (150-400) Sodium Level 136mEq/L (134-144) Potassium Level 4.7mEq/L (3.5-5.2) Chloride Level 101mEq/L (97-108) Carbon Dioxide Level 24mmol/L (18-29) Blood Urea Nitrogen 13mg/dL (6-24) Creatinine 0.73mg/dL (0.57-1.00) Estimat Glomerular Filtration Rate 118mL/min (>59) Glucose Level 345mg/dL (60-99) Calcium Level 8.3mg/dL (8.5-10.1) Vancomycin Level Trough 9.3mcg/mL Discharge Medications Discharge Medications Amlodipine (Amlodipine) 5 Mg Tablet 5 MG PO DAILY Prescribed by: TRENA MENEZES Aspirin (Lite Coat Aspirin) 325 Mg Tablet 325 MG PO DAILY (Reported) Atorvastatin Calcium (Atorvastatin Calcium) 40 Mg Tablet 40 MG PO HS Prescribed by: TRENA MENEZES Cholecalciferol (Vitamin D3) (Vitamin D3) 50,000 Unit Capsule 50,000 UNIT PO WEEKLY (Reported) MONDAYS Clopidogrel (Clopidogrel) 75 Mg Tablet 75 MG PO DAILY Prescribed by: TRENA MENEZES Doxycycline Hyclate (Doxycycline Hyclate) 100 Mg Tablet 100 MG PO BID Prescribed by: NEGRO NAIR DO Insulin Glargine (Lantus U100 Insulin Vial) 100 Unit/Ml Vial 30 UNIT SUBQ HS Prescribed by: TRENA MENEZES Levothyroxine (Synthroid) 100 Mcg Tablet 100 MCG PO QAM (Reported) Lisinopril (Lisinopril) 20 Mg Tablet 20 MG PO DAILY Prescribed by: TRENA MENEZES Metoprolol Tartrate (Metoprolol Tartrate) 25 Mg Tablet 25 MG PO BID Prescribed by: TRENA MENEZES Trazodone (Trazodone) 50 Mg Tablet 50 MG PO HS (Reported) As needed Hydrocodone-Acetaminophen 5-325 mg (Hydrocodone-Acetaminophen 5-325 mg) 1 Each Tablet 1 EACH PO Q4H PRN PRN For Pain (Reported) Tramadol (Ultram) 50 Mg Tablet 50 MG PO q6 hours PRN PRN Pain Prescribed by: NEGRO NAIR DO Followup Plan Follow-up plan Follow-up with Dr. Roy SundayJune 04 at the wound care clinic Follow-up with surgery for consideration of carotid endarterectomy Discharge Diet: Diabetic Discharge Activity: Limited until seen by PCP (weight-bearing on left heel as tolerated) Follow-up with PCP in: 1 week Time spent 45 minutes spent discharging this patient Negro Nair DO Jun 02, 2016 21:38
[2016-06-03] MEDS ORDERED: Vancomycin Serum Trough XX ONE (09:00)
--- NOTE | 2016-06-06 11:39 | PATH ---
SURGICAL PATHOLOGY Attending Physician:Mario Roy, CASE STATUS: Signed Out PATIENT NAME: JIMI GONZALES PID: [id number] : 1960 DATE COLLECTED:06/01/2016 00:00 SPECIMEN: Toe(s), Amputation, Non-Traumatic CLINICAL HISTORY: A: LEFT 5TH TOE FINAL DIAGNOSIS: 1.LEFT FIFTH TOE: PORTION OF TOE WITH ACTIVE PERIOSTEAL INFLAMMATION AND REACTIVE CHANGES IN UNDERLYING BONE. NO OSTEONECROSIS/OSTEOMYELITIS. NO EVIDENCE OF NEOPLASIA. ICD10 CODE L03.0 GROSS DESCRIPTION: The specimen is received in formalin, labeled with the patient's name, sublabeled as L 5th toe and consists of a disarticulated piece of bone (1.7 x 1.3 x 1.0 cm) with a minimal amount of unremarkable quinonez-knott soft tissue attached. The bone is quinonez-knott and easily sliced with a scalpel. The bone cut surface is luz-knott and with focally dark areas. Section code: (A) bone, serially sectioned, articular surface and claims representative submitted. Note: The frozen sections have been decalcified. 06/03/16 JM MICRO DESCRIPTION: See diagnosis. ICD-9 CODES: CPT CODES: 1: 18700, 13297 Electronically Signed Out Maritza Vaughan MD [facility] [address], [place] [address] Technical component performed at [facility], [address] [place] [address] Ave[address], [place], [address]
[2016-06-07] MEDS ORDERED: Ergocalciferol (Vit D2) 50,000 Unit Capsule PO SCH (08:30)
== END 2016-06-02 15:35 | disposition home or self-care (01) | DRG 314 ==
LOC: SED 18:12 → MOC 20:01
PROVIDERS: ADMIT Hospitalist; ATTEND Hospitalist
PROC: 0Y6Y0Z1 Detachment at Left 5th Toe, High, Open Approach (ICD-10-PCS; principal; 2016-06-01 17:00)
DX: E11.69 Type 2 diabetes mellitus with other specified complication (principal); M86.172 Other acute osteomyelitis, left ankle and foot; E11.40 Type 2 diabetes mellitus with diabetic neuropathy, unspecified; L97.909 Non-pressure chronic ulcer of unspecified part of unspecified lower leg with unspecified severity; I10 Essential (primary) hypertension; G89.29 Other chronic pain; J44.9 Chronic obstructive pulmonary disease, unspecified; F17.210 Nicotine dependence, cigarettes, uncomplicated; I77.1 Stricture of artery; I25.10 Atherosclerotic heart disease of native coronary artery without angina pectoris; E11.9 Type 2 diabetes mellitus without complications; E78.5 Hyperlipidemia, unspecified; Z95.5 Presence of coronary angioplasty implant and graft; Z79.82 Long term (current) use of aspirin; Z79.4 Long term (current) use of insulin

== ENCOUNTER 2016-07-01 15:46 | Emergency (ER) | payer OTHER ==
[~2016-07-01] VITALS: Ht 152.4 cm; Wt 57.7 kg
[~2016-07-01 15:46] MED LIST changes: -AMT50T PO; +CHOL500050 PO; -DOXY-232 PO; +DOXY100T2 PO; -ERGO500050 PO; -HYDR-3740 PO; +HYDR-4003 PO; +TRAM-14 PO; +TRAZ-115 PO
[2016-07-01 15:56] VITALS: BP 143/79; PULSE 110; RESP 20; O2SAT 99
--- NOTE | 2016-07-01 16:14 | ED.REPORT ---
HPI-General Illness Date of Service Jul 01, 2016 ED Provider: James Arnulfo MALONEY 55 year old female with a history of CAD, HTN, hyperlipidemia, diabetes, cardiac catheterization and stent placement presents to the ER accompanied by a female pegger due to an episode of syncope and collapse in her living room this morning. She also reports shortness of breath and dizziness that preceded the episode, though symptom onset was so rapid that she did not have time to react prior to losing consciousness. Currently all symptoms are resolved. Patient denies associated palpitations and chest pain. This is her second syncopal episode within the past three days, and she reports history of recurrent episodes over the past 5 months. She also mentions that she has had diarrhea for the past 5 days. Nursing Notes Stated Complaint: DIZZINESS Chief Complaint: General Complaint Nursing Notes Reviewed: Yes Allergies: Coded Allergies: Adhesives (Verified Allergy, Severe, Rash, 05/31/16) Blisters, Paper tape okay cranberry (Verified Allergy, Severe, Anaphylaxis, 05/31/16) gabapentin (Verified Allergy, Severe, Neurologic symptoms, 05/31/16) Stroke like symptoms amitriptyline (Verified Allergy, Intermediate, hypertension, 05/31/16) morphine (Verified Adverse Reaction, Severe, Rash, mouth blisters, 05/31/16) Uncoded Allergies: DISSOLVABLE SUTUTE (Allergy, Unknown, UNKNOWN, 10/30/12) Scheduled Amlodipine (Amlodipine) 5 Mg Tablet 5 MG PO DAILY Aspirin (Lite Coat Aspirin) 325 Mg Tablet 325 MG PO DAILY Atorvastatin Calcium (Atorvastatin Calcium) 40 Mg Tablet 40 MG PO HS Cholecalciferol (Vitamin D3) (Vitamin D3) 50,000 Unit Capsule 50,000 UNIT PO WEEKLY MONDAYS Clopidogrel (Clopidogrel) 75 Mg Tablet 75 MG PO DAILY Doxycycline Hyclate (Doxycycline Hyclate) 100 Mg Tablet 100 MG PO BID Insulin Glargine (Lantus U100 Insulin Vial) 100 Unit/Ml Vial 30 UNIT SUBQ HS Levothyroxine (Synthroid) 100 Mcg Tablet 100 MCG PO QAM Lisinopril (Lisinopril) 20 Mg Tablet 20 MG PO DAILY Metoprolol Tartrate (Metoprolol Tartrate) 25 Mg Tablet 25 MG PO BID Trazodone (Trazodone) 50 Mg Tablet 50 MG PO HS Scheduled PRN Hydrocodone-Acetaminophen 5-325 mg (Hydrocodone-Acetaminophen 5-325 mg) 1 Each Tablet 1 EACH PO Q4H PRN PRN For Pain Tramadol (Ultram) 50 Mg Tablet 50 MG PO q6 hours PRN PRN Pain General Time Seen by MD: 16:14 Chief Complaint Other (Syncope) Hx Obtained From: Patient Arrived By: Walk-in Sudden in Onset?: Yes Onset Occurred: 5 - 8 hours ago Symptom Duration: Since onset Caused by: Fall on ground Context: Occurred at: Home injury Location: : Head Quality: Painful Severity: Current: Mild Severity: Maximum: Moderate Associated with: Reports: Dizziness, Shortness of breath, Denies: Chest pain Context Related History: Reports Diabetes mellitus Recent Healthcare: Recent doctor visit Similar Sx Previous: Yes Past Medical History Past Medical History Notes: chronic pain, on chronic opiate usage 03/2016 Past Medical History MRSA (Facial cellulitits, buttock abscess) Dysphagia Sinus problems Peripheral vascular disease Pneumonia (2007) Hiatal hernia Back injury S/P knee scope Reports: Asthma, COPD, Coronary artery disease, Diabetes mellitus, Hyperlipidemia, Hypertension Past Surgical History Heart cath 2001 Heart cath w/ stenting 11/2011 Bilat shoulder repair L ring finger repair R index finger repair Reports: , Carotid endarterectomy, Cataract surgery, Cholecystectomy, Hysterectomy Reports: Carpal tunnel Smoking History Current Every Day Smoker Social History Alcohol Use: "Social" Drug Use: Denies drug use Occupation lives with best friend, retired from [employer] 04/13/2016 Ambulatory Status Independent Review of Systems Full Review of Systems Constitutional: Denies: Chills, Fever Respiratory: Reports: Shortness of breath, Denies: Non-productive cough Cardiovascular: Denies: Chest pain, Palpitations GI: Reports: Diarrhea, Denies: Nausea, Vomiting Musculoskeletal: Denies: Back pain, Extremity pain, Joint pain, Lumbar pain, Neck pain, Thoracic pain Neurologic: Reports: Dizziness, Syncope Complete sys rev & neg: except as marked. Physical Exam Vital Signs Initial VS: Reviewed Head / Eyes: Atraumatic, Normocephalic Neck: Supple, Non-tender, Full range of motion Abdomen / GI: Soft, Non-tender, No guarding, No rebound, No distention Extremities: Vascular intact, Neuro intact, No swelling, No tenderness Skin: Warm, Dry, No cyanosis Neurologic: Alert, Oriented, Nonfocal Psychiatric: Mood/affect normal, Behavior normal, Normal thought content General/Constitutional: Awake, Alert, Well developed, Well nourished Respiratory / Chest: Breath sounds NL, No respiratory distress, No rales, No rhonchi, No wheezing Cardiovascular: Regular rhythm, Heart sounds NL, Cap refill not delayed, Peripheral circulation NL Heart Rate / Rhythm: Positive: Tachycardia Interpretation & Diagnostics Lab Results Interpretation Test 07/01/16 16:25 07/01/16 16:42 07/01/16 16:48 Hold Urine Received (Received) Prothrombin Time 9.6sec (8.1-12.5) Prothromb Time International Ratio 0.90ratio Activated Partial Thromboplast Time 27.6sec (22.8-33.0) Sodium Level 132mEq/L (134-144) Potassium Level 3.4mEq/L (3.5-5.2) Chloride Level 95mEq/L (97-108) Carbon Dioxide Level 20mmol/L (18-29) Blood Urea Nitrogen 30mg/dL (6-24) Creatinine 1.02mg/dL (0.57-1.00) Estimat Glomerular Filtration Rate 80mL/min (>59) Glucose Level 275mg/dL (60-99) Calcium Level 9.5mg/dL (8.5-10.1) Magnesium Level 1.6mg/dL (1.6-2.6) Total Bilirubin 0.3mg/dL (0.0-1.2) Aspartate Amino Transf (AST/SGOT) 11U/L (0-50) Alanine Aminotransferase (ALT/SGPT) 11U/L (0-32) Alkaline Phosphatase 139U/L (25-150) Troponin T < 0.010ug/L (0.0-0.011) Pro-B-Type Natriuretic Peptide 129.7pg/mL (0-287) Total Protein 7.9g/dL (6.4-8.4) Albumin 4.4g/dL (3.4-5.0) White Blood Count 8.0th/mm3 (3.8-10.1) Red Blood Count 5.11mil/mm3 (3.90-5.20) Hemoglobin 14.9g/dL (12.0-15.6) Hematocrit 42.5% (35.0-46.0) Mean Corpuscular Volume 83.2fL (81-100) Mean Corpuscular Hemoglobin 29.2pg (27.0-35.0) Mean Corpuscular Hemoglobin Concent 35.1% (32.0-37.0) Red Cell Distribution Width 13.1% (12.3-15.4) Platelet Count 280bil/L (150-400) Neutrophils (%) (Auto) 54.1% (40-74) Lymphocytes (%) (Auto) 34.2% (14-46) Monocytes (%) (Auto) 9.0% (4-12) Eosinophils (%) (Auto) 1.9% (0-5) Basophils (%) (Auto) 0.4% (0-3) ECG Interpretation ECG Interpretation: Sinus tachycardia, rate 106 Time: 16:58 Interpreted by: ED physician X-Ray Chest Interpretation Chest Xray Interpretation: IMPRESSION: No acute cardiopulmonary disease process. Dictated by: Priscilla Abreu MD, PhD on 07/01/2016 at 17:13 Approved by: Priscilla Abreu MD, PhD on 07/01/2016 at 17:14 View: AP & lat Interpretation / Wet Read by: Interpret - Radiologist CT Head Interpretation IMPRESSION: No acute intracranial disease process. Dictated by: Priscilla Abreu MD, PhD on 07/01/2016 at 19:01 Approved by: Priscilla Abreu MD, PhD on 07/01/2016 at 19:02 Study: Head CT no contrast Interpretation / Wet Read by: Interpret - Radiologist CT Chest Interpretation IMPRESSION: 1. No pulmonary embolus. 2. Atherosclerosis including the coronary vasculature. Dictated by: Priscilla Abreu MD, PhD on 07/01/2016 at 19:03 Approved by: Priscilla Abreu MD, PhD on 07/01/2016 at 19:06 Study type: CT pulm angiogram Interpretation / Wet Read by: Interpret - Radiologist Re-Eval/Medical Decision Med Decision/Clinical Course 55-year-old female presents after syncopal episode for evaluation. She has had several episodes recently and is quite concerned. A complete workup including lab work, evaluation for pulmonary embolus, head CT, EKG, lab work, and ongoing telemetry monitoring here in the ER was completely unrevealing. Patient was reassured by this but still concerned about her ongoing syncopal events. I advised her to follow up as an outpatient and further test could be done possibly including a Holter monitor. Given her recent diarrhea she may be a little dehydrated and have had an episode of vasovagal syncope. Source of Hx: Old records Counseled Regarding: Diagnosis, Lab results Discharge & Departure Primary Impression: Syncope Syncope type: unspecified Qualified Code: R55 - Syncope and collapse Additional Impression: Tachycardia Disposition: Home Discharge Condition All VS Reviewed: Yes Condition: Stable Patient Instructions: Syncope (ED) Additional Instructions: Your evaluation in the ER today included an interview, physical exam, CT scan of the head and chest, lab work, and EKG. You were also monitored on a heart monitor while you were here. We were unable to identify anything dangerous or concerning with your tests today. I recommend that you keep your cardiology follow-up and tests that have been scheduled. Please make your regional liaison aware of your ER visit today. Stay hydrated by drinking at least 8 glasses of water a day. I recommend that you do not drive as you have had multiple syncopal episodes, until this can be resolved. You should follow up with your primary care provider next week to discuss this further and also you could consider a neurology referral. Please return to the ER for any new or worsening symptoms Referrals: Iraj Hunter (PCP) Destiny Attestation Portions of this note were transcribed by Virgilio Marte. I, Dr. Ramirez personally performed the history, physical exam and medical decision-making; I reviewed and confirmed the accuracy of the information in the transcribed note. Signed by: Destiny Seymour, 07/01/2016 and 18:29 copies to: Iraj Hunter Gary R DO Jul 01, 2016 16:14 VIRGILIO MARTE Jul 01, 2016 16:27 VIRGILIO MARTE Jul 01, 2016 16:27
[2016-07-01 17:04] LABS: BASOPHILS % (AUTO) 0.4 % (0-3); EOSINOPHILS % (AUTO) 1.9 % (0-5); Mean Corpuscular Hemoglobin 29.2 pg (27.0-35.0); Mean Corpuscular Volume 83.2 fL (81-100); NEUTROPHILS % (AUTO) 54.1 % (40-74); Platelet Count 280 bil/L (150-400)
--- NOTE | 2016-07-01 17:16 | DRSVH ---
PROCEDURE: X-RAY CHEST, TWO VIEWS ([id number]) INDICATIONS: shortness of breath, syncope TECHNIQUE: 2 views of the chest were acquired. COMPARISON: [facility], , CHEST 1VW (PORTABLE), 07/18/2014, 5:50. FINDINGS: Surgical changes and devices: None. Lungs and pleura: No pleural effusions or pneumothorax. Lungs are clear. Mediastinum: Mediastinal contours are normal. Heart size is normal. Bones and chest wall: Probable prior right acromioplasty stable in appearance compared to prior exam ination. No suspicious bony abnormalities. Soft tissues appear unremarkable. IMPRESSION: No acute cardiopulmonary disease process. Dictated by: Priscilla Abreu MD, PhD on 07/01/2016 at 17:13 Approved by: Priscilla Abreu MD, PhD on 07/01/2016 at 17:14
[2016-07-01 17:18] LABS: INR 0.9 ratio
[2016-07-01 17:50] LABS: Magnesium 1.6 mg/dL (1.6-2.6)
[2016-07-01 18:10] LABS: TROPONIN T < 0.010 ug/L (0.0-0.011)
--- NOTE | 2016-07-01 19:04 | DRSVH ---
PROCEDURE: CT BRAIN WITHOUT CONTRAST ([id number]) INDICATIONS: recurrent syncopal episodes TECHNIQUE: Noncontrast 4.5 mm thick angled axial sections acquired from the foramen magnum to the vertex, with c oronal reformats. COMPARISON: None. FINDINGS: Image quality: Excellent. CSF spaces: Basal cisterns are patent. No extra-axial fluid collections. The ventricles are symmet stanley in size and shape. Brain: No intracranial bleeds or masses. There is cerebral volume loss for age, with resultant vent ricular and sulcal prominence. There are periventricular and deep white matter chronic small vessel ischemic changes. There is intracranial internal carotid artery atherosclerosis. Skull and face: Calvarium and visualized facial bones appear intact, without suspicious lesions. Sinuses: Visualized sinuses and mastoids are clear. IMPRESSION: No acute intracranial disease process. Dictated by: Priscilla Abreu MD, PhD on 07/01/2016 at 19:01 Approved by: Priscilla Abreu MD, PhD on 07/01/2016 at 19:02
--- NOTE | 2016-07-01 19:08 | DRSVH ---
PROCEDURE: CT ANGIO CHEST PULMONARY EMBOLISM ([id number]) INDICATIONS: sob, syncope, tachycardia TECHNIQUE: After the administration of intravenous contrast, 2 mm thick sections acquired from the pulmonary api hai to the posterior costophrenic angles. 3-dimensional maximum intensity projection (MIP) coronal a nd sagittal reformats were then acquired through the thorax. For radiation dose reduction, the follo wing was used: automated exposure control, adjustment of mA and/or kV according to patient size. COMPARISON: None. FINDINGS: Image quality: Excellent. Pulmonary arteries: Pulmonary arteries are normal in size, and demonstrate no intraluminal filling d efects to suggest central pulmonary embolism. Lungs and pleura: Lungs are clear. No pleural effusions or pneumothorax. Central and peripheral ai rways are patent. Mediastinum: Heart size is normal, without pericardial effusion. Atherosclerotic calcifications are noted in the aorta the great vessels and the coronary vasculature. No mediastinal or hilar adenopathy . Thoracic aorta is normal in caliber and enhancement. Esophagus is normal in caliber, without hiat al hernia. Bones and chest wall: No suspicious bony lesions. Ribs and thoracic spine appear intact throughout. Thyroid gland is within normal limits where visualized. No axillary or supraclavicular adenopathy. Abdomen: Visualized upper abdominal solid organs appear normal in the early arterial phase of enhanc ement. IMPRESSION: 1. No pulmonary embolus. 2. Atherosclerosis including the coronary vasculature. Dictated by: Priscilla Abreu MD, PhD on 07/01/2016 at 19:03 Approved by: Priscilla Abreu MD, PhD on 07/01/2016 at 19:06
[2016-07-01 19:35] VITALS: BP 124/63; PULSE 107; RESP 16; O2SAT 100
== END 2016-07-01 19:36 | disposition home or self-care (01) ==
LOC: SED 15:46
DX: R55 Syncope and collapse (principal); R06.02 Shortness of breath; R42 Dizziness and giddiness; R19.7 Diarrhea, unspecified; I25.10 Atherosclerotic heart disease of native coronary artery without angina pectoris; J44.9 Chronic obstructive pulmonary disease, unspecified; J45.909 Unspecified asthma, uncomplicated; E11.9 Type 2 diabetes mellitus without complications; E78.5 Hyperlipidemia, unspecified; I10 Essential (primary) hypertension; F17.200 Nicotine dependence, unspecified, uncomplicated; Z86.14 Personal history of Methicillin resistant Staphylococcus aureus infection; Z87.01 Personal history of pneumonia (recurrent); Z98.61 Coronary angioplasty status; Z88.8 Allergy status to other drugs, medicaments and biological substances; Z88.5 Allergy status to narcotic agent; Z79.82 Long term (current) use of aspirin; Z79.4 Long term (current) use of insulin
CPT/HCPCS: 36415; 70450; 71020; 71275; 80053; 83735; 83880; 84484; 85025; 85610; 85730; 93005; 99285; Q9967

== ENCOUNTER 2016-08-07 15:29 | Inpatient (IN) | payer OTHER ==
[~2016-08-07] VITALS: Ht 154.9 cm; Wt 64.6 kg
[2016-08-07 15:43] VITALS: BP 118/66; PULSE 68; RESP 16; O2SAT 100
--- NOTE | 2016-08-07 17:34 | ED.REPORT ---
HPI-Extremity Problem Lower Date of Service Aug 07, 2016 ED Provider: Dr. Kimberley Hughes M.D. A 55 year old female with an extensive medical history including diabetes, CAD, hypertension, hyperlipidemia, COPD, hypothyroidism, peripheral vascular disease , and chronic pain presents to the ED with a left foot ulcer onset 5-6 days ago. The patient had her 5th toe amputated two months ago and the surgical site was healing normally until she developed an abscess in the area. The patient denies fever, chills, nausea, vomiting, myalgias, or other symptoms. The patient was referred here for admission by dials inspector Dr. Roy. Nursing Notes Stated Complaint: LEFT FOOT ULCER, FROM PODIATRY Chief Complaint: Extremity Trauma Nursing Notes Reviewed: Yes Allergies: Coded Allergies: Adhesives (Verified Allergy, Severe, Rash, 08/07/16) Blisters, Paper tape okay cranberry (Verified Allergy, Severe, Anaphylaxis, 08/07/16) gabapentin (Verified Allergy, Severe, Neurologic symptoms, 08/07/16) Stroke like symptoms amitriptyline (Verified Allergy, Intermediate, hypertension, 08/07/16) morphine (Verified Adverse Reaction, Severe, Rash, mouth blisters, 08/07/16 ) Uncoded Allergies: DISSOLVABLE SUTUTE (Allergy, Unknown, UNKNOWN, 10/30/12) Scheduled Aspirin Chew (Aspirin Chew) 81 Mg Chew 81 MG PO DAILY Atorvastatin Calcium (Atorvastatin Calcium) 40 Mg Tablet 40 MG PO HS Cholecalciferol (Vitamin D3) (Vitamin D3) 50,000 Unit Capsule 50,000 UNIT PO WEEKLY MONDAYS Duloxetine (Duloxetine) 60 Mg Capsule.dr 60 MG PO DAILY Insulin Glargine (Lantus U100 Insulin Vial) 100 Unit/Ml Vial 30 UNIT SUBQ BID Insulin Human Lispro (HumaLOG U100 Insulin Vial) 100 Unit/Ml Unit 1-8 UNIT SUBQ ACHS Check blood sugars before meals and at bedtime. Use correction factor only before meals. Blood Sugar Lispro Correction: <151, 0 units; 151-175, 1 unit; 176-200, 2 units; 201-225, 3 units; 226-250, 4 units; 251-275, 5 units; 276-300 , 6 units; 301-325, 7 units; 326-350, 8 units; 351-375, 9 units; 376-400, 10 units; >400, 12 units. Levothyroxine (Synthroid) 100 Mcg Tablet 100 MCG PO QAM Metoprolol Tartrate (Metoprolol Tartrate) 25 Mg Tablet 25 MG PO DAILY Pregabalin (Lyrica) 50 Mg Capsule 50 MG PO TID Sulfamethoxazole/Trimeth 800-160 mg (Bactrim DS 800-160 mg) 1 Each Tablet 1 TABLET PO BID Trazodone (Trazodone) 100 Mg Tablet 100 MG PO HS Scheduled PRN Hydrocodone-Acetaminophen 7.5-325 mg (Hydrocodone-Acetaminophen 7.5-325 mg) 1 Each Tablet 1 TABLET PO Q8H PRN PRN For Pain General Time Seen by MD: 17:34 Chief Complaint Other (Left Foot Wound) Hx Obtained From: Patient Arrived By: Walk-in Onset Occurred: 5 days ago Symptom Duration: Since onset Location: : Foot left Quality: Painful Severity: Current: Moderate Severity: Maximum: Moderate Associated with: Denies: Fever, Nausea, Vomiting Pertinent Negative: Relieved by nothing Immunizations: Tetanus up to date Recent Healthcare: Recent doctor visit Similar Sx Previous: Yes Past Medical History Past Medical History Notes: chronic pain, on chronic opiate usage 03/2016 Past Medical History MRSA (Facial cellulitits, buttock abscess) Dysphagia Sinus problems Peripheral vascular disease Pneumonia (2007) Hiatal hernia Back injury S/P knee scope Hypothyroidism Reports: Asthma, COPD, Coronary artery disease, Diabetes mellitus, Hyperlipidemia, Hypertension Past Surgical History Heart cath 2001 Heart cath w/ stenting 11/2011 Bilat shoulder repair L ring finger repair R index finger repair Reports: , Carotid endarterectomy, Cataract surgery, Cholecystectomy, Hysterectomy Reports: Carpal tunnel Smoking History Current Every Day Smoker Social History Alcohol Use: "Social" Drug Use: Denies drug use Occupation lives with best friend, retired from [employer] 04/13/2016 Ambulatory Status Independent Review of Systems Review of Systems Note: + Left foot ulcer Constitutional: Denies: Chills, Fever Musculoskeletal: Reports: Extremity pain (Left foot), Denies: Myalgia Complete sys rev & neg: except as marked. Respiratory: Denies: Non-productive cough, Shortness of breath GI: Denies: Nausea, Vomiting Physical Exam Initial Vital Signs Vital Signs (First) Date Time Temp Pulse Resp B/P Pulse Ox O2 Delivery O2 Flow Rate FiO2 08/07/16 15:43 36.5 68 16 118/66 100 Room Air Initial VS: Reviewed, Vital signs normal Head / Eyes: Atraumatic, Normocephalic ENT: Conjunctiva normal, No scleral icterus Neck: Supple, Full range of motion Respiratory: Breath sounds normal, Clear to auscultation, No respiratory distress Cardiovascular: Regular rate & rhythm, Heart sounds normal Skin: Warm, Dry, No cyanosis Neurologic: Alert, Oriented, Nonfocal Psychiatric: Mood/affect normal, Behavior normal, Normal thought content Ankle / Foot: Full range of motion Left Foot: Positive: Swelling present... (Laterally), Tenderness present... ( with palpation) Induration to left lateral foot Left fifth toe amputated General/Constitutional: Awake, Alert Interpretation & Diagnostics Lab Results Interpretation Result Diagram: 08/07/166 08/07/166 Test 08/07/16 18:26 White Blood Count 8.4th/mm3 (3.8-10.1) Red Blood Count 4.17mil/mm3 (3.90-5.20) Hemoglobin 11.9g/dL (12.0-15.6) Hematocrit 35.3% (35.0-46.0) Mean Corpuscular Volume 84.7fL (81-100) Mean Corpuscular Hemoglobin 28.5pg (27.0-35.0) Mean Corpuscular Hemoglobin Concent 33.7% (32.0-37.0) Red Cell Distribution Width 12.5% (12.3-15.4) Platelet Count 242bil/L (150-400) Neutrophils (%) (Auto) 57.1% (40-74) Lymphocytes (%) (Auto) 30.4% (14-46) Monocytes (%) (Auto) 9.7% (4-12) Eosinophils (%) (Auto) 2.0% (0-5) Basophils (%) (Auto) 0.4% (0-3) Prothrombin Time 9.8sec (8.1-12.5) Prothromb Time International Ratio 0.92ratio Sodium Level 133mEq/L (134-144) Potassium Level 5.0mEq/L (3.5-5.2) Chloride Level 95mEq/L (97-108) Carbon Dioxide Level 24mmol/L (18-29) Blood Urea Nitrogen 20mg/dL (6-24) Creatinine 0.86mg/dL (0.57-1.00) Estimat Glomerular Filtration Rate 98mL/min (>59) Glucose Level 349mg/dL (60-99) Calcium Level 8.9mg/dL (8.5-10.1) Magnesium Level 1.7mg/dL (1.6-2.6) Total Bilirubin 0.2mg/dL (0.0-1.2) Aspartate Amino Transf (AST/SGOT) 33U/L (0-50) Alanine Aminotransferase (ALT/SGPT) 32U/L (0-32) Alkaline Phosphatase 163U/L (25-150) Total Protein 6.7g/dL (6.4-8.4) Albumin 3.5g/dL (3.4-5.0) Hold [place] Top Tube Received (Received) X-Ray Interpretation Xray Interpretation: IMPRESSION: Amputated fifth digit distal to the mid fifth metatarsal with osseous irregularity. Developing osteomyelitis cannot be excluded. Dictated by: Kari Oates M.D. on 08/07/2016 at 18:08 Study Performed: 2 View X-Ray Ordered: Foot left Re-Eval/Medical Decision Med Decision/Clinical Course This patient was sent in by her dials inspector for foot infection. She was told she would need surgery. Her examination and evaluation here revealed possible osteomyelitis. Dr. Foley will be performing surgery tomorrow. Dr. Foley the patient had recent C. difficile colitis, I do not see this in my record however she requested the addition of Flagyl. Source of Hx: Old records Re-Evaluation/Progress : Time of Eval: 19:00 Patient Status: Condition improved Re-Evaluation/Progress Note: Discussed with patient x-ray and lab results, diagnosis, and plan for admit. Patient agrees with plan for care and all questions were addressed. Consultation #1: Referral / Consult Name: Beata Foley DPM Consulted With: Hospitalist Call Returned at: 19:21 Apartment Manager: Agrees with eval, Agrees with plan, Accepts admit Note: Recommends adding Flagyl due to history of C. Diff. Consultation #2: Referral / Consult Name: Janett Baure DO Consulted With: Hospitalist Call Returned at: 19:21 Apartment Manager: Agrees with eval, Agrees with plan, Accepts admit Counseled Regarding: Diagnosis, Lab results, Need for admission Discharge & Departure Impression: Primary Impression: Osteomyelitis of left foot Chronicity: acute Qualified Code: M86.172 - Other acute osteomyelitis, left ankle and foot Disposition: ADMITTED TO HOSPITAL Discharge Condition All VS Reviewed: Yes Condition: Improved Referrals: Juan M Hull MD (PCP) Scribe Attestation Portions of this note were transcribed by Kay Tilley. I, Dr. Hughes, personally performed the history, physical exam, and medical decision-making; I reviewed and confirmed the accuracy of the information in the transcribed note. Signed by: Destiny Stephenson, 08/07/2016, 21:57 copies to: Juan M Hull MD, Jena M MD Aug 07, 2016 17:34 KAY TILLEY Aug 07, 2016 17:46
[2016-08-07] MEDS ORDERED: Vancomycin Dose per Pharmacist XX ONE (17:50)
[2016-08-07] MEDS ORDERED: Piperacillin-Tazo 3.375 Gm Inj 3.375 GM in Dextrose 5% Minibag Plus 50 ML IV ONE (17:50)
[2016-08-07] MEDS ORDERED: 0.9% Sodium Chloride 500 ML IV ONE (17:50)
[2016-08-07 18:00] VITALS: BP 146/75; PULSE 68; O2SAT 99
[2016-08-07] MEDS ORDERED: Vancomycin Inj 1,250 MG in 0.9% Sodium Chloride 250 ML IV ONE (18:05)
--- NOTE | 2016-08-07 18:10 | DRSVH ---
PROCEDURE: X-RAY LEFT FOOT, TWO VIEWS ([id number]) INDICATIONS: foot infection TECHNIQUE: 2 views of the foot were acquired. COMPARISON: [facility], CR, XR FOOT 3VW LT, 05/31/2016, 19:35. FINDINGS: Bones: There is been amputation of the fifth digit distal to the mid metatarsal. There is irregular a ppearance at the amputated site of the metatarsal. Soft tissues: No tibiotalar joint effusion. Achilles tendon appears normal. IMPRESSION: Amputated fifth digit distal to the mid fifth metatarsal with osseous irregularity. Devel oping osteomyelitis cannot be excluded. Dictated by: Kari Oates M.D. on 08/07/2016 at 18:08 Approved by: Kari Oates M.D. on 08/07/2016 at 18:08
[2016-08-07] MEDS: HYDROmorphone 0.5 mg/0.5 mL iSecure Syringe IVPUSH PRN ×3 (18:17→22:58)
[2016-08-07 18:34] LABS: BASOPHILS % (AUTO) 0.4 % (0-3); MONOCYTES % (AUTO) 9.7 % (4-12); Mean Corpuscular Hemoglobin 28.5 pg (27.0-35.0); Mean Corpuscular Volume 84.7 fL (81-100); NEUTROPHILS % (AUTO) 57.1 % (40-74); Platelet Count 242 bil/L (150-400)
[2016-08-07] MEDS ORDERED: metroNIDAZOLE Inj 500 MG in IV Premix 1 EACH IV ONE (18:35)
[2016-08-07 18:51] LABS: INR 0.92 ratio
[2016-08-07 19:06] LABS: Magnesium 1.7 mg/dL (1.6-2.6)
[2016-08-07] MEDS ORDERED: Ondansetron 2 mg/mL 2 mL Inj IVPUSH PRN (19:25)
[2016-08-07] MEDS ORDERED: Alum-Mag Hydrox-Simeth 30 mL Suspension PO PRN (19:25)
[2016-08-07] MEDS ORDERED: Polyethylene Glycol (PEG) 17 Gm Powder PO PRN (19:25)
--- NOTE | 2016-08-07 19:32 | PCM.HPMED ---
Subjective Date of Service Aug 07, 2016 Primary Provider: Admitting Physician: Primary Care Physician: Juan M Hull MD Attending Physician: Admit Status: From the Emergency Department Chief Complaint: foot abscess History of Present Illness: 55yoF with past medical history of insulin dependent diabetes with recent fifth left digit amputation (05/2016) admitted d/t concern for osteomyelitis following I&D of left foot by podiatry Patient states that she has been following up with Dr. Roy following her recent left fifth digit amputation in 2016. Over the weekend she had increased pain rated as non-radiating 7/10 throbbing pain throughout her left foot. She mentions that she may have benefitted from coming into clinic sooner but called to get an appointment first thing Sunday morning. She denies fevers , chills, nausea, vomiting at this time she does however endorse continued left foot pain. Most recently she was admitted at [facility] and is s/p partial amputation of her left fifth digit. No complications were noted on discharge summary. Review of Systems: Complete review of systems obtained. Positive as per HPI otherwise negative. Allergies Coded Allergies: Adhesives (Verified Allergy, Severe, Rash, 08/07/16) Blisters, Paper tape okay cranberry (Verified Allergy, Severe, Anaphylaxis, 08/07/16) gabapentin (Verified Allergy, Severe, Neurologic symptoms, 08/07/16) Stroke like symptoms amitriptyline (Verified Allergy, Intermediate, hypertension, 08/07/16) morphine (Verified Adverse Reaction, Severe, Rash, mouth blisters, 08/07/16 ) Uncoded Allergies: DISSOLVABLE SUTUTE (Allergy, Unknown, UNKNOWN, 10/30/12) Home Medications Medications reviewed with patient based on completed med rec ASA 81mg daily Atorvastatin 40 PO qHS Vitamin D3 Cholecalciferol Hydrocodone-Acetaminophen Glargine 30 units BID SSI - Lispro Levothyroxine Metoprolol tartrate 25mg daily Pregabalin 50 BID - please note med rec states TID. Patient is only taking BID TMP-SMX Trazodone PMH Diabetes, insulin dependent CAD s/p stent 2011 HTN HLD H/o MRSA, facial cellulitis and buttock abscess PVD CVA Surgical History Right carotid endarterectomy Partial left fifth digit amputation foot Family History significant for CAD, youngest MA in sister at age 38 (passed d/t MA), father h/ o MA, mother h/o diabetes Social History Occupation: retired Hx Alcohol Use: Yes (1 per week) Hx Substance Use: Yes (positive urine tox screen 12/2015 for meth,amphetamines, benzo) Hx Tobacco Use: Yes (1-1.5 pack per day) Smoking Status: Current Every Day Smoker Living Arrangement: with Friends/Roommate Additional Information mother in [place]. Patient recently loss 2 of her sisters which has been trying. Patient wishes to visit mother for support but unable to given medical condition Exam Vital Signs Vital Sign - Last Date Time Temp Pulse Resp B/P Pulse Ox O2 Delivery O2 Flow Rate FiO2 08/07/16 18:00 37.1 68 146/75 99 Room Air 08/07/16 15:43 16 Exam General: Alert, Oriented X3, Cooperative, No acute Distress Eyes: PERRLA, Scleral Anicteric Mouth: Mouth Normal, Mucous Membranes Moist/[place], poor dentition Neck: Supple, no Thyromegaly, trachea central. Chest & Lungs: Clear to auscultation & percussion, No adventitious breath sounds, no crackles, no wheeze Cardiovascular: Normal S1, Normal S2, No Murmurs/Rubs/Gallops, Regular Rate/ Rhythm, Murmur, (No JVD, no peripheral edema) Pulses: Radial (present and equal), Dorsalis Pedi (present R) Abdomen: Soft, Non-tender, Non-distended, Normoactive bowel tones. Musculoskeletal: Unremarkable. Normal range of motion, no swollen or erythematous joints Extremities: no pitting edema, no cyanosis, no clubbing. Left leg dressing CDI , no surrounding erythema Skin: No rashes. Warm and dry, no erythematous areas Neurological: Grossly neurologically intact, has generalized weakness, slurred Speech but baseline, Sensation Intact Lymphatic: Lymph nodes Cervical and Axillary not palpable. Lab and Diagnostics Result Diagram: 08/07/16182508/07/161825 X-Rays, CTs and MRIs Patient Name: JIMI GONZALES MR#: [id number] [place] [facility] [place] Phys: Kimberley Hughes MD Date of Service: 08/07/161741 PROCEDURE: X-RAY LEFT FOOT, TWO VIEWS ([id number]) INDICATIONS: foot infection TECHNIQUE: 2 views of the foot were acquired. COMPARISON: [facility], CR, XR FOOT 3VW LT, 05/31/2016, 19:35. FINDINGS: Bones: There is been amputation of the fifth digit distal to the mid metatarsal. There is irregular appearance at the amputated site of the metatarsal. Soft tissues: No tibiotalar joint effusion. Achilles tendon appears normal. IMPRESSION: Amputated fifth digit distal to the mid fifth metatarsal with osseous irregularity. Developing osteomyelitis cannot be excluded. Dictated by: Kari Oates M.D. on 08/07/2016 at 18:08 Approved by: Kari Oates M.D. on 08/07/2016 at 18:08 Assessment & Plan 55yoF with past medical history of insulin dependent diabetes with recent fifth left digit amputation (05/2016) admitted d/t concern for osteomyelitis following I&D of left foot by podiatry Diabetic foot infection, acute, POA -abscess drained by podiatry as outpatient -surgery in am as per podiatry -XR reviewed, some osseous change that is concerning for osteomyelitis -piperacillin-tazobactam, vancomycin, and metronidazole started in ED, continue piperacillin-tazobactam and vancomycin (pharm to dose) -metronidazole as per request of podiatry given patient's history of c. diff -NPO after midnight -mIVF -pain management with 0.5-1mg q3hr IV hydromorphone, and home dose hydrocodone- acetaminophen -podiatry consulting, recs appreciated Diabetes, Insulin Dependent, chronic, POA -hgba1c was completed during recent admission (05/2016) - SSI - decrease glargine dose from 30 bid to 20 bid Htn/lipids/cad, Chronic, POA- -continue home metoprolol, atorvastatin. -continue ASA -please note that past records are reviewed and patient does have carotid stenosis. Unclear if follow up was completed -Tobacco dependence, chronic, POA -recommended cessation, discussed with patient, has cut back significantly as per patient -nicotine replacement -Cerebrovascular disease, chronic, POA- -Previous R-sided CEA a -60+% stenosis she says she had on the left. - H/o Constipation- -bowel regimen ordered, consider scheduling Pain Evaluation: Adequate Pain Control GI Prophylaxis: Not indicated VTE Prophylaxis: Sub-Q Heparin (Unfractionated) Resuscitation Status: CPR: Attempt Resuscitation Janett Bauer DO Aug 07, 2016 19:32
[2016-08-07] MEDS ORDERED: ASPI81TA3 PO (20:28)
[2016-08-07] MEDS ORDERED: HYDR-3825 PO (20:28)
[2016-08-07] MEDS ORDERED: DULO60CA61 PO (20:28)
[2016-08-07] MEDS ORDERED: INSU100V7 SUBQ (20:28)
[2016-08-07] MEDS ORDERED: METO25TA6 PO (20:28)
[2016-08-07] MEDS ORDERED: SULF1TAB35 PO (20:28)
[2016-08-07] MEDS ORDERED: PREG50CA PO (20:28)
[2016-08-07] MEDS ORDERED: TRAZ-118 PO (20:28)
[2016-08-07] MEDS ORDERED: INSLIS SUBQ (20:30)
[2016-08-07 20:53] VITALS: BP 117/61; PULSE 66; O2SAT 100
[2016-08-07 21:18] VITALS: BP 122/61; PULSE 65; RESP 18; O2SAT 100
[2016-08-07 21:23] LABS: COLOR,URINE YELLOW (YELLOW)
[2016-08-07 21:24] LABS: APPEARANCE,URINE CLEAR (CLEAR,HAZY); OCCULT BLOOD,URINE NEGATIVE (NEGATIVE); UROBILINOGEN,URINE NORMAL (NORMAL)
[2016-08-07 21:47] VITALS: PULSE 87
--- NOTE | 2016-08-07 22:28 | NUR ---
Admission Pt arrived on unit at 2109. Pt is here for diabetic foot ulcer on top of left foot that has developed after having left 5th toe amputated. Pt oriented to room, call light and bathroom. Pt to be NPO after midnight with surgery in AM. A/O x4. able to make needs known. Dilaudid being used for pain
[2016-08-07] MEDS: 0.9% Sodium Chloride 1,000 ML IV SCH (22:30)
[2016-08-07] MEDS: Vancomycin Dose per Pharmacist XX SCH (22:30)
[2016-08-07] MEDS ORDERED: HYDROmorphone 1 mg/mL Inj IVPUSH PRN (22:45)
--- NOTE | 2016-08-07 23:06 | PCM.CONPHA ---
Subjective foot abscess Reason for Pharmacy Consult: Vancomycin Dosing Objective Vital Signs Date Time Temp Pulse Resp B/P Pulse Ox O2 Delivery O2 Flow Rate FiO2 08/07/16 21:47 87 08/07/16 21:18 36.7 65 18 122/61 100 Room Air 08/07/16 20:53 36.5 66 117/61 100 Room Air 08/07/16 18:00 37.1 68 146/75 99 Room Air 08/07/16 15:43 36.5 68 16 118/66 100 Room Air Weight (Kilograms): 59.090 Height (Feet): 5 Height (Inches): 1.00 Test 08/07/16 18:26 08/07/16 21:01 White Blood Count 8.4th/mm3 (3.8-10.1) Red Blood Count 4.17mil/mm3 (3.90-5.20) Hemoglobin 11.9g/dL (12.0-15.6) Hematocrit 35.3% (35.0-46.0) Mean Corpuscular Volume 84.7fL (81-100) Mean Corpuscular Hemoglobin 28.5pg (27.0-35.0) Mean Corpuscular Hemoglobin Concent 33.7% (32.0-37.0) Red Cell Distribution Width 12.5% (12.3-15.4) Platelet Count 242bil/L (150-400) Neutrophils (%) (Auto) 57.1% (40-74) Lymphocytes (%) (Auto) 30.4% (14-46) Monocytes (%) (Auto) 9.7% (4-12) Eosinophils (%) (Auto) 2.0% (0-5) Basophils (%) (Auto) 0.4% (0-3) Prothrombin Time 9.8sec (8.1-12.5) Prothromb Time International Ratio 0.92ratio Sodium Level 133mEq/L (134-144) Potassium Level 5.0mEq/L (3.5-5.2) Chloride Level 95mEq/L (97-108) Carbon Dioxide Level 24mmol/L (18-29) Blood Urea Nitrogen 20mg/dL (6-24) Creatinine 0.86mg/dL (0.57-1.00) Estimat Glomerular Filtration Rate 98mL/min (>59) Glucose Level 349mg/dL (60-99) Calcium Level 8.9mg/dL (8.5-10.1) Magnesium Level 1.7mg/dL (1.6-2.6) Total Bilirubin 0.2mg/dL (0.0-1.2) Aspartate Amino Transf (AST/SGOT) 33U/L (0-50) Alanine Aminotransferase (ALT/SGPT) 32U/L (0-32) Alkaline Phosphatase 163U/L (25-150) Total Protein 6.7g/dL (6.4-8.4) Albumin 3.5g/dL (3.4-5.0) Hold [place] Top Tube Received (Received) Urine Color Yellow (YELLOW) Urine Appearance Clear (CLEAR,HAZY) Urine pH 6.0 (5.0-8.0) Urine Specific [place] 1.010 (1.003-1.035) Urine Protein Negativemg/dL (NEG,TRACE) Urine Glucose (UA) >1000mg/dL (NEGATIVE) Urine Ketones Negativemg/dL (NEGATIVE) Urine Occult Blood Negative (NEGATIVE) Urine Nitrite Negative (NEGATIVE) Urine Bilirubin Negative (NEGATIVE) Urine Urobilinogen Normalmg/dL (NORMAL) Urine Leukocyte Esterase Negative (NEGATIVE) Urine RBC 0-2/hpf (0-2) Urine WBC 0-5/hpf (0-5) Urine Epithelial Cells Few/hpf (NONE-MOD) Urine Crystals None seen (NONE SEEN) Urine Bacteria Few/hpf (NONE-FEW) Urine Hyaline Casts None/lpf (NONE) Urine Granular Casts None seen (NONE SEEN) Urine Waxy Casts None seen (NONE SEEN) Urine Red Blood Cell Casts None seen (NONE SEEN) Urine White Blood Cell Casts None seen (NONE SEEN) Urine Mucus None seen (None Seen) Urine Trichomonas None seen (NONE SEEN) Urine Yeast None (NONE SEEN) Urinalysis Comment None Urine Culture Reflexed Not indicated Assessment/Plan Assessment/Plan Vanco per Rx Indication: Osteomyelitis Goal Trough : 15-20 Vd 44; eTrough: 16 LD 1250mg follow by 1000mg q18h Trough before 4th dose, at midnight 08/10/16 Ilia Israel PharmD Aug 07, 2016 23:06
[2016-08-07] MEDS ORDERED: HYDROmorphone 0.5 mg/0.5 mL iSecure Syringe IVPUSH ONE (23:40)
[2016-08-07] MEDS ORDERED: Glucose 40% Oral Gel 15 Gm Tube PO PRN (23:55)
[2016-08-08] VITALS (11 sets, daily range): BP systolic 92–145; BP diastolic 52–74; PULSE 54–90; RESP 15–18; O2SAT 95–99
[2016-08-08] MEDS: Piperacillin-Tazo 3.375 Gm Inj 3.375 GM in Dextrose 5% Minibag Plus 50 ML IV SCH ×3 (01:36→20:59)
[2016-08-08] MEDS: Insulin Human REGular 300 Unit/3 mL Inj SUBQ SCH ×4 (03:17→20:30)
[2016-08-08] MEDS: HYDROmorphone 1 mg/mL Inj IVPUSH PRN ×5 (03:18→23:07)
[2016-08-08 07:00] LABS: BASOPHILS % (AUTO) 0.6 % (0-3); EOSINOPHILS % (AUTO) 3.5 % (0-5); MONOCYTES % (AUTO) 10.7 % (4-12); Mean Corpuscular Hemoglobin 28.5 pg (27.0-35.0); Mean Corpuscular Volume 86.1 fL (81-100); NEUTROPHILS % (AUTO) 48.7 % (40-74); Platelet Count 250 bil/L (150-400)
[2016-08-08] MEDS ORDERED: Insulin GLARgine 100 Unit/mL Syringe SUBQ SCH (08:00)
[2016-08-08] MEDS: metroNIDAZOLE Inj 500 MG in IV Premix 1 EACH IV SCH ×2 (08:20→19:48)
[2016-08-08] MEDS: Vancomycin Dose per Pharmacist XX SCH (08:30)
[2016-08-08] MEDS: 0.9% Sodium Chloride 1,000 ML IV SCH ×2 (12:30→23:06)
[2016-08-08] MEDS: Vancomycin 1 Gm/200 mL NS Premix IV SCH (12:30)
[2016-08-08] MEDS ORDERED: 0.9% Sodium Chloride 1,000 ML IV ONE (13:15)
[2016-08-08] MEDS ORDERED: Lactated Ringer's 1,000 ML IV ONE ×2 (13:18→15:46)
--- NOTE | 2016-08-08 13:35 | NUR ---
Social Work Note - Initial Assessment Josefa Maurer is a 55 yr old admitted for osteomyelitis of her left foot. EMR reviewed: Pt has [employer] insurance, her PCP is Dr Hull. Readmit score not available. [employer] met with pt - introduced d/c planning and explained SW role. Pt lives in [place] with her friend. She is independent at baseline, anticipates going home at d/c. She uses no equipment, drives independently. Pt does not currently have a dpoa - Given paperwork to appoint her daughter. Pt states she will return it. [employer] explored concerns in H&P that pt has hx of methamphetamine use. Pt states she is not currently using - states that "in the past" she hung out with a bad group of friends who are no longer friends. She denies any dependence, denies needing resources or assessment. [employer] provided support. No needs identified. [employer] will follow if needs arise. Plan: Home with friend in [facility]. No needs identified. CELIA Griffin
[2016-08-08] MEDS ORDERED: fentaNYL-PF 50 mCg/mL 2 mL Inj ONE (13:53)
[2016-08-08] MEDS ORDERED: Lidocaine PF 1% 30 mL Inj ONE (13:53)
[2016-08-08] MEDS ORDERED: Propofol 10,000 mCg/mL 20 mL Inj ONE (13:53)
--- NOTE | 2016-08-08 15:40 | PCM.HPANE ---
Patient Data Date of Service: Aug 08, 2016 Surgeon Admitting Provider:Medhat Desouza DO Attending Provider:Beata Foley DPM Primary Care Physician:Juan M Hull MD Other Provider: Reason for Visit Osteomyelitis Left Foot OSTEOMYELITIS LEFT FOOT Ht/WT & BMI Height (Feet): 5 Height (Inches): 1.00 Weight (Kilograms): 59.090 Body Mass Index 24.60 Allergies Coded Allergies: Adhesives (Verified Allergy, Severe, Rash, 08/07/16) Blisters, Paper tape okay cranberry (Verified Allergy, Severe, Anaphylaxis, 08/07/16) gabapentin (Verified Allergy, Severe, Neurologic symptoms, 08/07/16) Stroke like symptoms amitriptyline (Verified Allergy, Intermediate, hypertension, 08/07/16) morphine (Verified Adverse Reaction, Severe, Rash, mouth blisters, 08/07/16 ) Uncoded Allergies: DISSOLVABLE SUTUTE (Allergy, Unknown, UNKNOWN, 10/30/12) Past Anesthesia History Anesthesia History: Denies:: Abnormal Airway, Anesthesia Reactions, Difficult Intubation, Fam Anesthesia Reaction, Fam Malignant Hypertherm Diabetes History Hx Diabetes?: Yes Type of Diabetes: Type II Glycemic Control: Insulin Dependent Current Bedside Blood Glucose: 144 MRSA MRSA: Yes (FACIAL CELLULITIS,BUTTOCK ABCESS, NARES) Medications Hypertension Medication: Yes Home Meds Incl Beta Bobo: Yes Date Beta Bobo Taken: Aug 08, 2016 Time Beta Bobo Taken: 08:00 Active Scripts Atorvastatin Calcium 40 Mg Znocbx42 Mg PO HS #30 TABLET Prov:Pancho Zacarias MD 04/17/16 Reported Medications Insulin Human Lispro (HumaLOG U100 Insulin Vial)100 Unit/Ml Unit1-8 Unit SUBQ ACHS #1 VIAL Ref 0 Check blood sugars before meals and at bedtime. Use correction factor only before meals. Blood Sugar Lispro Correction: <151, 0 units; 151-175, 1 unit; 176-200, 2 units; 201-225, 3 units; 226-250, 4 units; 251-275, 5 units; 276-300, 6 units; 301-325, 7 units; 326-350, 8 units; 351-375, 9 units; 376-400, 10 units; >400, 12 units. 08/07/16 Insulin Glargine (Lantus U100 Insulin Vial)100 Unit/Ml Vial30 Unit SUBQ BID #1 VIAL Ref 0 08/07/16 Duloxetine 60 Mg Capsule.dr60 Mg PO DAILY Ref 0 08/07/16 Metoprolol Tartrate 25 Mg Tufzui86 Mg PO DAILY 30 Days Ref 0 08/07/16 Hydrocodone-Acetaminophen 7.5-325 mg 1 Each Tablet1 Tablet PO Q8H PRN For Pain Ref 0 08/07/16 Sulfamethoxazole/Trimeth 800-160 mg (Bactrim DS 800-160 mg)1 Each Tablet1 Tablet PO BID Ref 0 08/07/16 Pregabalin (Lyrica)50 Mg Kviyztc98 Mg PO TID 30 Days Ref 0 08/07/16 Aspirin Chew 81 Mg Chew81 Mg PO DAILY Ref 0 08/07/16 Trazodone 100 Mg Iuejyi796 Mg PO HS Ref 0 08/07/16 Cholecalciferol (Vitamin D3) (Vitamin D3)50,000 Unit Pgpfnfz79,000 Unit PO WEEKLY Mondays05/31/16 Levothyroxine (Synthroid)100 Mcg Optfcj743 Mcg PO QAM Ref 0 02/28/16 Discontinued Reported Medications Hydrocodone-Acetaminophen 5-325 mg 1 Each Tablet1 Each PO Q4H PRN For Pain 05/31/16 Trazodone 50 Mg Ivvles80 Mg PO HS 05/31/16 Aspirin (Lite Coat Aspirin)325 Mg Cporjy954 Mg PO DAILY 04/13/16 Discontinued Scripts Doxycycline Hyclate 100 Mg Dhuitm681 Mg PO BID 14 Days Prov:Kiran Nair DO 06/02/16 Tramadol (Ultram)50 Mg Oakfhx20 Mg PO q6 hours PRN Pain #15 TABLET Ref 0 Prov:Kiran Nair DO 06/02/16 Insulin Glargine (Lantus U100 Insulin Vial)100 Unit/Ml Vial30 Unit SUBQ HS 30 Days Prov:Pancho Zacarias MD 04/17/16 Clopidogrel 75 Mg Dtsggx89 Mg PO DAILY #30 TABLET Prov:Pancho Zacarias MD 04/17/16 Metoprolol Tartrate 25 Mg Acywmb75 Mg PO BID #60 TABLET Prov:Pancho Zacarias MD 04/17/16 Amlodipine 5 Mg Tablet5 Mg PO DAILY #30 TABLET Prov:Pancho Zacarias MD 04/17/16 Lisinopril 20 Mg Opjyav40 Mg PO DAILY #30 TABLET Ref 0 Prov:Pancho Zacarias MD 04/17/16 History History of ENT Problems?: Yes HEENT History: Positive for:: Cataracts (had surgery) Dysphagia Sinus Problem (MRSA) Denies:: Abnormal Airway Difficult Intubation Hearing Problem (left ear draining lesion current admission problem) TMJ Hx of Heart Problems?: Yes Cardiovascular History: Positive for:: Cardiac Surgery (4 stents) Edema Hypertension Denies:: AICD Abdominal Aortic Aneurism Atrial Fibrillation Chest Pain Congestive Heart Failure Heart Murmur Irregular Heartbeat Pacemaker Rheumatic Fever Thrombophlebitis Valvular Heart Disease Hx of Respiratory Problem?: Yes Respiratory History: Positive for:: Cough Pneumonia Denies:: Asthma COPD Chest Surgery Dyspnea Emphysema Hemoptysis Oxygen Administration Pulmonary Embolism Tuberculosis Use of C-PAP Machine (does not tolerate) Other Resp Pertinent History: 0 c/o SOB Hx Neurologic Problems?: No Neurological History: Denies:: Alzheimer's Disease CVA Dementia Dizziness Headaches Multiple Sclerosis Parkinson's Disease Seizures Hx of GI Problems?: No Gastrointestinal History: Denies:: Cirrhosis Diverticulitis Gastroesphageal Reflux Gastrointestinal Bleeding Heartburn Hepatitis Hiatal Hernia Rectal Bleeding Hx of Problems?: Yes Genitourinary History: Positive for:: Urinary Tract Infection Denies:: HX of Hemodialysis Kidney Stones HX of Peritoneal Dialysis: No Female Hx: Positive for:: Problems with Breasts? (hx breast cyst) Denies:: Currently Endometriosis Pelvic Inflammatory Skin History: Positive for:: History Skin Disorders? (draining wound left ear) Denies:: Pressure Ulcers Hx Musculoskeletal Problems?: Yes Musculoskeletal History: Positive for:: Back Injury (degenerative disk disease ) Musculoskeletal Trauma Denies:: Degenerative Joint Joint Replacement Systemic Lupus Hx of Psycho/Social Problems?: No Psycho Social History: Denies:: Anxiety Bipolar Disorder Hx Depression Suicide Attempt Hx Surgeries?: Yes Hx Any Other Health Problems?: Yes Other History: Positive for:: Hospitalization (surgeries) Thyroid Disease Denies:: Cancer Endocrine Disease History Blood Transfusions: Positive for:: Accept Blood Products? Denies:: Blood Transfuse Reaction Blood Transfusions Hx Diabetes: YesBedside Blood Glucose: 144 Occupation: retired Hx Alcohol Use: NoHx Substance Use: No Smoking Status: Current Every Day Smoker Have You Smoked inLast 12 mo: YesApprox How Many Cigarettes/day: 5-10 Stop/Bang Treated for Sleep Apnea?: Yes Do You Have a CPAP Machine?: Yes S-Snoring: Do You Snore Loudly: Yes T-Tired: feel tired, fatigued: Yes O-Obsered: Observed not breath: Yes P-Blood Pressure: treated: Yes B- Body Mass Index > 35 kg/m2: No A- Age over 50: Yes N- Neck Large Circumference: No Risk Assessment Category Category 1A: Patient has history of documented sleep apnea, and HAS NOT received any narcotic, sedative or anesthesia administration during this stay. Category 1B: Patient has history of documented sleep apnea, and HAS received any narcotic , sedative or anesthesia administration during this stay Category 2: Patient has SUSPECTED Obstructive Sleep Apnea, and HAS received any narcotic , sedative or anesthesia administration during this stay. Category 3: Patient has SUSPECTED Obstructive Sleep Apnea and HAS NOT received narcotic, sedative or anesthesia administration during this stay. Category 4: Outpatient in Procedural Areas with known sleep apnea or who screen positive for High Risk via the STOP/BANG questionnaire. Exam Exam Vital Signs Vital Signs Date Time Temp Pulse Resp B/P Pulse Ox O2 Delivery O2 Flow Rate FiO2 08/08/16 13:07 36.5 54 16 92/57 98 Room Air 08/08/16 12:40 84 08/08/16 09:37 36.5 80 18 101/63 98 Room Air General Appearance: Alert, Oriented X3 HEENT/AIRWAY: MP 2 Lungs: Clear to Auscultation Heart: Regular Rate/Rhythm, No Murmurs/Rubs/Gallops Meds/Labs/Diagnostics Admission Meds Current Medications Piperacillin Sod/ Tazobactam Sod/ Dextrose/Water (Zosyn 3.375 Gm Inj/D5W Minibag Plus) 50 ml @ 100 mls/hr ONCE ONCE IV Last administered on 08/07/16 18:17; Start 08/07/16 at 17:50; Stop 08/07/16 at 18:19; Status DC Pharmacy Consult 1 ea 1 ea ONCE ONCE XX Last administered on 08/07/16 17:50; Start 08/07/16 at 17:50; Stop 08/07/16 at 18:03; Status DC Sodium Chloride 500 ml @ 0 mls/hr Q0M ONCE IV Last administered on 08/07/16 18 :17; Start 08/07/16 at 17:50; Stop 08/07/16 at 17:53; Status DC Vancomycin HCl 1250 mg/Sodium Chloride 250 ml @ 166.667 mls/hr ONCE ONCE IV Last administered on 08/07/16 19:16; Start 08/07/16 at 18:05; Stop 08/07/16 at 19:34; Status DC Metronidazole/ Sodium Chloride 500 mg/Premix 100 ml @ 200 mls/hr ONCE ONCE IV Last administered on 08/07/16 22:48; Start 08/07/16 at 18:35; Stop 08/07/16 at 19:04; Status DC Piperacillin Sod/ Tazobactam Sod 3.375 gm/Dextrose/ Water 50 ml @ 12.5 mls/hr Q8H IV Last administered on 08/08/16 10:16; Start 08/08/16 at 02:00 Metronidazole/ Sodium Chloride/ Premix (Flagyl Inj/IV Premix) 100 ml @ 200 mls/ hr Q12 IV Last administered on 08/08/16 08:20; Start 08/08/16 at 08:30 Insulin Human Regular * Low Dose Insulin Algori... Q6 SUBQ Last administered on 08/08/16 03:17; Start 08/08/16 at 02:30 Sodium Chloride (Normal Saline) 1,000 ml @ 80 mls/hr [id number] IV Last administered on 08/08/16 12:30; Start 08/07/16 at 22:30 Nicotine (Nicoderm 21 mg/ 24 Hr Patch) 1 patch HS TOPICAL Last administered on 08/07/16 23:52; Start 08/07/16 at 23:40 Atorvastatin Calcium (Lipitor) 40 mg HS PO Last administered on 08/08/16 00:14 ; Start 08/07/16 at 23:51 Trazodone HCl (Desyrel) 100 mg HS PO Last administered on 08/08/16 00:14; Start 08/07/16 at 23:52 Insulin Glargine (Lantus Insulin Inj) 20 unit BID@08,22 SUBQ Last administered on 08/08/16 08:23; Start 08/08/16 at 08:00 Levothyroxine Sodium (Synthroid) 100 mcg DAILY PO Last administered on 08:18; Start 08/08/16 at 08:30 Metoprolol Tartrate (Lopressor) 25 mg DAILY PO Last administered on 08/08/16 08:18; Start 08/08/16 at 08:30 Pregabalin (Lyrica) 50 mg BID PO Last administered on 08/08/16 08:18; Start at 08:30 Bedside Blood Glucose: 144 Labs Test 08/07/16 18:26 08/07/16 21:01 08/08/16 06:18 Prothrombin Time 9.8sec (8.1-12.5) Prothromb Time International Ratio 0.92ratio Hemoglobin A1c 12.5% (4.8-5.6) Magnesium Level 1.7mg/dL (1.6-2.6) Total Bilirubin 0.2mg/dL (0.0-1.2) Aspartate Amino Transf (AST/SGOT) 33U/L (0-50) Alanine Aminotransferase (ALT/SGPT) 32U/L (0-32) Alkaline Phosphatase 163U/L (25-150) Total Protein 6.7g/dL (6.4-8.4) Albumin 3.5g/dL (3.4-5.0) Hold [place] Top Tube Received (Received) Urine Color Yellow (YELLOW) Urine Appearance Clear (CLEAR,HAZY) Urine pH 6.0 (5.0-8.0) Urine Specific [place] 1.010 (1.003-1.035) Urine Protein Negativemg/dL (NEG,TRACE) Urine Glucose (UA) >1000mg/dL (NEGATIVE) Urine Ketones Negativemg/dL (NEGATIVE) Urine Occult Blood Negative (NEGATIVE) Urine Nitrite Negative (NEGATIVE) Urine Bilirubin Negative (NEGATIVE) Urine Urobilinogen Normalmg/dL (NORMAL) Urine Leukocyte Esterase Negative (NEGATIVE) Urine RBC 0-2/hpf (0-2) Urine WBC 0-5/hpf (0-5) Urine Epithelial Cells Few/hpf (NONE-MOD) Urine Crystals None seen (NONE SEEN) Urine Bacteria Few/hpf (NONE-FEW) Urine Hyaline Casts None/lpf (NONE) Urine Granular Casts None seen (NONE SEEN) Urine Waxy Casts None seen (NONE SEEN) Urine Red Blood Cell Casts None seen (NONE SEEN) Urine White Blood Cell Casts None seen (NONE SEEN) Urine Mucus None seen (None Seen) Urine Trichomonas None seen (NONE SEEN) Urine Yeast None (NONE SEEN) Urinalysis Comment None Urine Culture Reflexed Not indicated White Blood Count 6.7th/mm3 (3.8-10.1) Red Blood Count 4.03mil/mm3 (3.90-5.20) Hemoglobin 11.5g/dL (12.0-15.6) Hematocrit 34.7% (35.0-46.0) Mean Corpuscular Volume 86.1fL (81-100) Mean Corpuscular Hemoglobin 28.5pg (27.0-35.0) Mean Corpuscular Hemoglobin Concent 33.1% (32.0-37.0) Red Cell Distribution Width 12.6% (12.3-15.4) Platelet Count 250bil/L (150-400) Neutrophils (%) (Auto) 48.7% (40-74) Lymphocytes (%) (Auto) 36.2% (14-46) Monocytes (%) (Auto) 10.7% (4-12) Eosinophils (%) (Auto) 3.5% (0-5) Basophils (%) (Auto) 0.6% (0-3) Sodium Level 139mEq/L (134-144) Potassium Level 4.3mEq/L (3.5-5.2) Chloride Level 99mEq/L (97-108) Carbon Dioxide Level 27mmol/L (18-29) Blood Urea Nitrogen 16mg/dL (6-24) Creatinine 0.84mg/dL (0.57-1.00) Estimat Glomerular Filtration Rate 100mL/min (>59) Glucose Level 109mg/dL (60-99) Calcium Level 8.7mg/dL (8.5-10.1) Plan Impression Patient chart reviewed, patient interviewed and anesthestic plan with risks, benefits, and alternatives discussed, and informed consent obtained. NPO Status: > 8 hours ASA Physical Status: ASA3 Severe Disease Anesthetic Plan: MAC Bene/Risks/Altern/Consents: Yes HP Complete Prior to Induction: Yes Ángel Madden MD Aug 08, 2016 15:40
[2016-08-08] MEDS ORDERED: Lidocaine 2%-Epi 1:100,000 20 mL Inj NERVEBLOCK ONE (16:01)
--- NOTE | 2016-08-08 16:31 | PCM.PODPO ---
Podiatry Operative Report Date of Service: Aug 08, 2016 Date of Service Aug 08, 2016 Pre Operative Diagnosis Left foot abscess with radiographic signs of osteomyelitis, fifth metatarsal Post Operative Diagnosis Left foot abscess with intraoperative signs of osteomyelitis, fifth metatarsal Procedure Excision of soft tissue and infected appearing fifth metatarsal bone, incision and drainage of dorsal abscess, left foot Surgeon Surgeon: Beata Foley DPM Assistants: None Indication for Procedure Recurrent infection, underlying osteomyelitis. Findings The patient's left fifth metatarsal, distal stump, appeared soft and easily removed with rongeur. The remaining metatarsal shaft appeared viable. A small amount of purulent tinged hemorrhagic fluid was expressed from the dorsal abscess, communicating with the extensor tendons. Details of Procedure The patient was identified in the preoperative holding area and brought back to the operating room. She was placed on the operating table in supine position. The timeout procedure was completed and IV sedation started. The left foot was anesthetized with lidocaine plain. The left foot was prepped and draped in usual aseptic manner. The obvious dorsal fluctuant area was incised with a #15 scalpel. A purulent tinged hemorrhagic fluid was expressed. The underlying exposed extensor digitorum longus to the fourth toe was identified. The tendon was still viable. Necrotic tissue was present overlying the distal stump of the fifth metatarsal shaft. This necrotic tissue was excised. All communicating soft tissue was excised where necessary, the fifth metatarsal shaft was debrided sharply with the rongeur. Bleeding tissue was encountered throughout the entire dorsolateral foot. Irrigation was performed with normal saline. 1/4 inch Nu Gauze packing was moistened with normal saline and packed into the resulting wound. The remainder of the dressing consisted of normal saline moistened gauze dry Kerlix and an Earnest wrap. Patient was taken to the recovery room with vital signs stable and neurovascular status to the left foot appearing adequate. Grafts, Implants: None Complications There were no periprocedural complications identified. Condition Stable Anesthetic Administered: MAC Drains: None Catheters: None Output, Estimated Blood Loss: 10 (ml) Blood Admin during surgery: No Surgical Cast or Splint: None Surgical Specimen Removed: Yes Specimen sent to Pathology: No Surgical Specimen description: A culture specimen was sent for Gram stain and sensitivities. Post Operative Plan The patient will have daily dressing changes for the next 2-3 days. I am expecting a return to the operating room for delayed primary closure at that time. She should remain on IV antibiotics due to exposed bone and previous recurrence of osteomyelitis. She should be touchdown weightbearing on the left foot, when needed. She should be on bedrest with bedside commode privileges as needed. Beata Foley DPM Aug 08, 2016 16:31
[2016-08-08] MEDS ORDERED: Lactated Ringer's 500 ML IV PRN (16:33)
[2016-08-08] MEDS ORDERED: Lactated Ringer's 1,000 ML IV SCH (16:33)
[2016-08-08] MEDS ORDERED: HYDROmorphone 1 mg/mL Inj IVPUSH PRN (16:35)
[2016-08-08] MEDS ORDERED: Atropine 0.4 mg/mL Inj IVPUSH PRN (16:35)
[2016-08-08] MEDS ORDERED: fentaNYL-PF 50 mCg/mL 2 mL Inj IVPUSH PRN (16:35)
[2016-08-08] MEDS ORDERED: Ondansetron 2 mg/mL 2 mL Inj IVPUSH PRN (16:35)
[2016-08-08] MEDS ORDERED: MetoCLOpramide 5 mg/mL 2 mL Inj IVPUSH PRN (16:35)
[2016-08-08] MEDS ORDERED: Labetalol 5 mg/mL 4 mL Inj IV PRN (16:35)
[2016-08-08] MEDS ORDERED: Phenylephrine 10,000 mCg/mL Inj IVPUSH PRN (16:35)
[2016-08-08] MEDS ORDERED: hydrALAZINE 20 mg/mL Inj IVPUSH PRN (16:35)
[2016-08-08] MEDS ORDERED: EPHEDrine Sulfate 50 mg/mL Inj IVPUSH PRN (16:35)
--- NOTE | 2016-08-08 16:35 | PCM.ANEP1 ---
Post Anesthesia Phase 1 PACU Phase 1 Assessment Date of Service: Aug 08, 2016 Vital Signs Vital Signs Date Time Temp Pulse Resp B/P Pulse Ox O2 Delivery O2 Flow Rate FiO2 08/08/16 13:07 36.5 54 16 92/57 98 Room Air 08/08/16 12:40 84 08/08/16 09:37 36.5 80 18 101/63 98 Room Air Anesthetic Administered: MAC Level of Alertness: Awake, talking Pain: No Nausea or Vomiting: No Oxygen Delivery: Room Air Ángel Madden MD Aug 08, 2016 16:35
--- NOTE | 2016-08-08 16:35 | PCM.ANEP2 ---
Post Anesthesia Evaluation ASA/CMS Post Anesthesia Date of Service: Aug 08, 2016 VS in Patient's Normal Range?: Yes Resp Stable; Airway Patent?: Yes CV Function & Hydration Stable: Yes Mental Status Recovered?: Yes Pain control Satisfactory?: Yes N/V Control Satisfactory?: Yes Ángel Madden MD Aug 08, 2016 16:35
--- NOTE | 2016-08-08 16:48 | PCM.PNMED ---
Subjective Date of Service Aug 08, 2016 Subjective Patient was seen and examined at bedside today. Patient denies any chest pain, shortness of breath, nausea, vomiting, diarrhea. Patient only complains of left foot pain with palpation. Exam Vital Signs Vital Sign - Last Date Time Temp Pulse Resp B/P Pulse Ox O2 Delivery O2 Flow Rate FiO2 08/08/16 16:35 Room Air 08/08/16 13:07 36.5 54 16 92/57 98 Intake and Output 08/07/16 08/07/16 08/08/16 Cumulative From/Thru 15:00 23:00 07:00 08/07/16 15:43 - 08/08/16 06:36 Intake Total 500 ml 1183 ml 1683 ml Output Total 1100 ml 1100 ml Balance 500 ml 83 ml 583 ml Intake Oral 708 ml 708 ml IV Total 500 ml 475 ml 975 ml Output Urine Total 1100 ml 1100 ml Exam Physical Exam: GEN: Patient was awake, alert, responding appropriately to questions HEENT: PERRLA, EOMI, Neck soft supple, trachea midline, nomocephalic/atraumatic CV: +S1/S2, RRR, no murmur auscultated Respiratory: CTAB, no wheezes, rales, rhonchi GI: +bowel sounds x4, soft, compressible, non TTP EXT: no c/c/e of the right foot, left foot is currently bandaged, tender to palpation, bandages clean dry and intact Neuro: CN II-XII grossly intact Psych: mood and affect were appropriate IVs and Medications Medications Reviewed: Medications were reviewed in detail Lab and Diagnostics Result Diagram: 08/08/1618 08/08/1618 X-Rays, CTs and MRIs Patient Name: JIMI GONZALES MR#: [id number] [place] [facility] [place] Phys: Kimberley Hughes MD Date of Service: 08/07/16 174 PROCEDURE: X-RAY LEFT FOOT, TWO VIEWS ([id number]) INDICATIONS: foot infection TECHNIQUE: 2 views of the foot were acquired. COMPARISON: [facility], CR, XR FOOT 3VW LT, 05/31/2016, 19:35. FINDINGS: Bones: There is been amputation of the fifth digit distal to the mid metatarsal. There is irregular appearance at the amputated site of the metatarsal. Soft tissues: No tibiotalar joint effusion. Achilles tendon appears normal. IMPRESSION: Amputated fifth digit distal to the mid fifth metatarsal with osseous irregularity. Developing osteomyelitis cannot be excluded. Dictated by: Kari Oates M.D. on 08/07/2016 at 18:08 Approved by: Kari Oates M.D. on 08/07/2016 at 18:08 Assessment & Plan 55yoF with past medical history of insulin dependent diabetes with recent fifth left digit amputation (05/2016) admitted d/t concern for osteomyelitis following I&D of left foot by podiatry Diabetic foot infection, acute, POA -abscess drained by podiatry as outpatient -surgery scheduled for today at 3:30pm as per podiatry -XR reviewed, some osseous change that is concerning for osteomyelitis -Continue piperacillin-tazobactam, vancomycin, and metronidazole started in ED, continue piperacillin-tazobactam and vancomycin (pharm to dose) -metronidazole as per request of podiatry given patient's history of c. diff to be used for prophylaxis since the patient is getting a lot of medications -mIVF -pain management with 0.5-1mg q3hr IV hydromorphone, and home dose hydrocodone- acetaminophen -podiatry consulting, recs appreciated Hypotension -Blood pressure is 92/57 -Bolus IV fluids 1 L normal saline -We will continue to monitor Diabetes, Insulin Dependent, chronic, POA -Hemoglobin A1c is 12.5 -Start metformin 500 mg twice a day - SSI -Restart patient's home dose of Lantus 30 units twice a day Htn/lipids/cad, Chronic, POA- -continue home metoprolol, atorvastatin. -continue ASA -please note that past records are reviewed and patient does have carotid stenosis. Unclear if follow up was completed -Tobacco dependence, chronic, POA -recommended cessation, discussed with patient, has cut back significantly as per patient -nicotine replacement -Cerebrovascular disease, chronic, POA- -Previous R-sided CEA a -60+% stenosis she says she had on the left. - H/o Constipation- -bowel regimen ordered, consider scheduling GI Prophylaxis: Not indicated VTE Prophylaxis: Sub-Q Heparin (Unfractionated) VTE Mechanical Devices: Intermittant Pneumatic CD Resuscitation Status: CPR: Attempt Resuscitation Time spent Greater than 35 minutes Promise Lopez DO Aug 08, 2016 16:48
--- NOTE | 2016-08-08 19:37 | NUR ---
Off unit/medication Pt off unit to OR at 1455, report given to RN. Pt returned at 1710 from PACU, report from DEEP Urrtuia. Pt VSS, LYNN, A&O x 3. No c/o pain or nausea. Pt hungry and wanting to eat, popsicle given and pt ordered dinner. Left foot dressing is C, D&I guaze with JUSTINE wrap in place. Pt has SCD's on. Pt given fluid bolus prior to leaving unit for low BP's. Pt declined metformin stating "it doesn't break down in me and comes out whole." paged, with no response. 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 Pt also declined AM insulin and was very nervous about fast acting insulin stating that she "has bad experiences and will crash" if given 1 unit when NPO.
[2016-08-08] MEDS: HYDROcodone-APAP 7.5-325 mg Tablet PO PRN (21:22)
[2016-08-08] MEDS: Insulin GLARgine 100 Unit/mL Syringe SUBQ SCH (21:29)
[2016-08-09] VITALS (7 sets, daily range): BP systolic 121–196; BP diastolic 52–87; PULSE 68–73; RESP 16–18; O2SAT 94–99
[2016-08-09] MEDS: HYDROcodone-APAP 7.5-325 mg Tablet PO PRN ×3 (01:18→10:37)
[2016-08-09] MEDS: HYDROmorphone 1 mg/mL Inj IVPUSH PRN ×4 (02:09→19:40)
[2016-08-09] MEDS: Piperacillin-Tazo 3.375 Gm Inj 3.375 GM in Dextrose 5% Minibag Plus 50 ML IV SCH ×3 (02:12→18:12)
[2016-08-09] MEDS: Insulin Human REGular 300 Unit/3 mL Inj SUBQ SCH ×4 (02:28→21:55)
--- NOTE | 2016-08-09 02:34 | NUR ---
Pain Pt. states pain 10/10 down to 5/10 with both po and IVP analgesia.Dressing CDI and LLE elevated.VSS yet hypertensive and prn hydralizine adm.Carlos. po fluids qs w/o c/o nausea.Moving well with SBA and uop qs.Sleeping intermittently and resting comfortably at this time.Will cont. to monitor.
[2016-08-09 06:55] LABS: Mean Corpuscular Hemoglobin 28.2 pg (27.0-35.0); Mean Corpuscular Volume 86.4 fL (81-100)
[2016-08-09] MEDS: Insulin GLARgine 100 Unit/mL Syringe SUBQ SCH ×3 (08:00→21:56)
[2016-08-09] MEDS: Vancomycin Dose per Pharmacist XX SCH (08:30)
[2016-08-09] MEDS: Vancomycin 1 Gm/200 mL NS Premix IV SCH (09:12)
--- NOTE | 2016-08-09 11:16 | NUR ---
Social Work: Continued d/c planning Data: Pt is on day 2 of hospitalization. EMR reviewed, pt discussed in rounds. [employer] J[employer]SEM[employer]ER spoke with Paul Santizo with [facility] who states they are open with pt. Access given. PT ordered to see pt today, [employer] J[employer]SEM[employer]ER will follow regarding their recommendations. Assessment: Pt who is independent at baseline. Plan: Pt will d/c home via POV with [facility] to resume. [employer]SEM[employer]ER will follow post PT assessment. [employer]SEM[employer]ER will continue to follow. LALIT Gunderson
[2016-08-09] MEDS: metroNIDAZOLE Inj 500 MG in IV Premix 1 EACH IV SCH ×2 (11:17→21:00)
[2016-08-09] MEDS: oxyCODONE-Acetamin 5-325 mg Tablet PO PRN ×3 (15:03→22:46)
--- NOTE | 2016-08-09 16:49 | PCM.PNMED ---
Subjective Date of Service Aug 09, 2016 Subjective Patient was seen and examined at bedside today. Patient denies any chest pain, shortness of breath, nausea, vomiting, diarrhea. Patient has some concerns with her diabetes medications as she has had hypoglycemia in the past. It was explained to the patient extensively that it is important that she follow the current diabetes regimen that has been scheduled for her as her hemoglobin A1c is 12.5 showing that her diabetes is significantly still out of control. Patient complained of pruritus. Exam Vital Signs Vital Sign - Last Date Time Temp Pulse Resp B/P Pulse Ox O2 Delivery O2 Flow Rate FiO2 08/09/16 16:01 36.8 72 18 132/71 96 Room Air Intake and Output 08/08/16 08/08/16 08/09/16 Cumulative From/Thru 15:00 23:00 07:00 08/07/16 15:43 - 08/09/16 06:17 Intake Total 2197 ml 2008 ml 5888 ml Output Total 1020 ml 2000 ml 4120 ml Balance 1177 ml 8 ml 1768 ml Intake Oral 480 ml 1180 ml 2368 ml IV Total 1717 ml 828 ml 3520 ml Output Urine Total 1000 ml 2000 ml 4100 ml Estimated Blood Loss 20 ml 20 ml # Bowel Movements 0 0 Exam Physical Exam: GEN: Patient was awake, alert, responding appropriately to questions HEENT: PERRLA, EOMI, Neck soft supple, trachea midline, nomocephalic/atraumatic CV: +S1/S2, RRR, no murmur auscultated Respiratory: CTAB, no wheezes, rales, rhonchi GI: +bowel sounds x4, soft, compressible, non TTP EXT: no c/c/e in the right lower extremity, tenderness to palpation of the left lower extremity surgical site is currently bandaged and the dressing is clean dry and intact Neuro: CN II-XII grossly intact Psych: mood and affect were appropriate IVs and Medications Medications Reviewed: Medications were reviewed in detail Lab and Diagnostics Result Diagram: 08/09/1640 08/09/1640 X-Rays, CTs and MRIs Patient Name: JIMI GONZALES MR#: [id number] [place] [facility] [place] Ordering Phys: Kimberley Hughes MD Date of Service: 08/07/16 174 PROCEDURE: X-RAY LEFT FOOT, TWO VIEWS ([id number]) INDICATIONS: foot infection TECHNIQUE: 2 views of the foot were acquired. COMPARISON: [facility], CR, XR FOOT 3VW LT, 05/31/2016, 19:35. FINDINGS: Bones: There is been amputation of the fifth digit distal to the mid metatarsal. There is irregular appearance at the amputated site of the metatarsal. Soft tissues: No tibiotalar joint effusion. Achilles tendon appears normal. IMPRESSION: Amputated fifth digit distal to the mid fifth metatarsal with osseous irregularity. Developing osteomyelitis cannot be excluded. Dictated by: Kari Oates M.D. on 08/07/2016 at 18:08 Approved by: Kari Oates M.D. on 08/07/2016 at 18:08 Assessment & Plan 55yoF with past medical history of insulin dependent diabetes with recent fifth left digit amputation (05/2016) admitted d/t concern for osteomyelitis following I&D of left foot by podiatry Diabetic foot infection, acute, POA -abscess drained by podiatry as outpatient -Surgery scheduled for yesterday -XR reviewed, some osseous change that is concerning for osteomyelitis -Continue piperacillin-tazobactam, vancomycin, and metronidazole started in ED, continue piperacillin-tazobactam and vancomycin (pharm to dose) -metronidazole as per request of podiatry given patient's history of c. diff to be used for prophylaxis since the patient is getting a lot of medications -mIVF -pain management with 0.5-1mg q3hr IV hydromorphone, and home dose hydrocodone- acetaminophen -podiatry consulting, recs appreciated Hypotension -Blood pressure is 92/57 -Bolus IV fluids 1 L normal saline -We will continue to monitor Diabetes, Insulin Dependent, chronic, POA -Hemoglobin A1c is 12.5 -Discontinue metformin 500 mg twice a day patient is unable to tolerate -Discontinue glyburide patient is unable to tolerate - SSI mild -Change Lantus dose to 20 units in the morning and 30 units at night -Nutrition consult for diabetes education Htn/lipids/cad, Chronic, POA- -continue home metoprolol, atorvastatin. -continue ASA -please note that past records are reviewed and patient does have carotid stenosis. Unclear if follow up was completed -Tobacco dependence, chronic, POA -recommended cessation, discussed with patient, has cut back significantly as per patient -nicotine replacement -Cerebrovascular disease, chronic, POA- -Previous R-sided CEA a -60+% stenosis she says she had on the left. - H/o Constipation- -bowel regimen ordered, consider scheduling Disposition: Patient will continue IV antibiotics at this time surgery has noted that the patient can only have toe-touch ambulation and physical therapy has been ordered. It was explained to the patient her need for strict diabetes control and that she needs it follow the recommendations that we give her at this time and we will closely monitor her for any signs of hypoglycemia. It was also stressed to her that this is very important due to her needing her blood sugars under strict control for better wound healing. GI Prophylaxis: Not indicated VTE Prophylaxis: Sub-Q Heparin (Unfractionated) VTE Mechanical Devices: Intermittant Pneumatic CD Resuscitation Status: CPR: Attempt Resuscitation Time spent Greater than 35 minutes Promise Lopez DO Aug 09, 2016 16:49
--- NOTE | 2016-08-09 17:26 | PCM.PNPOD ---
Subjective Date of Service: Aug 09, 2016 Visit Information: Reason for Visit Osteomyelitis Left Foot Surgery/Surgery Date 08/08/2016 incision and drainage of left foot abscess with additional bone debridement, left fifth metatarsal Post-Op Day # 1 Date of Admission: Aug 07, 2016 at 19:52 Subjective: The patient is seen at bedside this afternoon, at lunchtime. She was sitting with her feet in dependency. She was complaining that hydrocodone was not working very well for her and wanted an upgraded to oxycodone. She was also complaining of a rash on the back of her neck and back and genus between her fingers, but I could not see anything. Gastrointestinal: Good Appetite Pain Management: PO Postop Activity: Ambulating Independently (heel touch weightbearing to the left foot, using a walker) Objective Vital Sign - Last Date Time Temp Pulse Resp B/P Pulse Ox O2 Delivery O2 Flow Rate FiO2 08/09/16 16:01 36.8 72 18 132/71 96 Room Air Intake and Output 08/08/16 08/08/16 08/09/16 Cumulative From/Thru 15:00 23:00 07:00 08/07/16 15:43 - 08/09/16 06:17 Intake Total 2197 ml 2008 ml 5888 ml Output Total 1020 ml 2000 ml 4120 ml Balance 1177 ml 8 ml 1768 ml Intake Oral 480 ml 1180 ml 2368 ml IV Total 1717 ml 828 ml 3520 ml Output Urine Total 1000 ml 2000 ml 4100 ml Estimated Blood Loss 20 ml 20 ml # Bowel Movements 0 0 Result Diagram: 08/09/16 0640 08/09/16 0640 Lab Test 08/07/16 18:26 08/07/16 21:01 08/08/16 06:18 08/09/16 06:40 Prothrombin Time 9.8sec (8.1-12.5) Prothromb Time International Ratio 0.92ratio Hemoglobin A1c 12.5% (4.8-5.6) Magnesium Level 1.7mg/dL (1.6-2.6) Hold [place] Top Tube Received (Received) Urine Color Yellow (YELLOW) Urine Appearance Clear (CLEAR,HAZY) Urine pH 6.0 (5.0-8.0) Urine Specific [place] 1.010 (1.003-1.035) Urine Protein Negativemg/dL (NEG,TRACE) Urine Glucose (UA) >1000mg/dL (NEGATIVE) Urine Ketones Negativemg/dL (NEGATIVE) Urine Occult Blood Negative (NEGATIVE) Urine Nitrite Negative (NEGATIVE) Urine Bilirubin Negative (NEGATIVE) Urine Urobilinogen Normalmg/dL (NORMAL) Urine Leukocyte Esterase Negative (NEGATIVE) Urine RBC 0-2/hpf (0-2) Urine WBC 0-5/hpf (0-5) Urine Epithelial Cells Few/hpf (NONE-MOD) Urine Crystals None seen (NONE SEEN) Urine Bacteria Few/hpf (NONE-FEW) Urine Hyaline Casts None/lpf (NONE) Urine Granular Casts None seen (NONE SEEN) Urine Waxy Casts None seen (NONE SEEN) Urine Red Blood Cell Casts None seen (NONE SEEN) Urine White Blood Cell Casts None seen (NONE SEEN) Urine Mucus None seen (None Seen) Urine Trichomonas None seen (NONE SEEN) Urine Yeast None (NONE SEEN) Urinalysis Comment None Urine Culture Reflexed Not indicated Neutrophils (%) (Auto) 48.7% (40-74) Lymphocytes (%) (Auto) 36.2% (14-46) Monocytes (%) (Auto) 10.7% (4-12) Eosinophils (%) (Auto) 3.5% (0-5) Basophils (%) (Auto) 0.6% (0-3) White Blood Count 6.1th/mm3 (3.8-10.1) Red Blood Count 3.69mil/mm3 (3.90-5.20) Hemoglobin 10.4g/dL (12.0-15.6) Hematocrit 31.9% (35.0-46.0) Mean Corpuscular Volume 86.4fL (81-100) Mean Corpuscular Hemoglobin 28.2pg (27.0-35.0) Mean Corpuscular Hemoglobin Concent 32.6% (32.0-37.0) Red Cell Distribution Width 12.5% (12.3-15.4) Platelet Count 223bil/L (150-400) Sodium Level 139mEq/L (134-144) Potassium Level 4.5mEq/L (3.5-5.2) Chloride Level 102mEq/L (97-108) Carbon Dioxide Level 25mmol/L (18-29) Blood Urea Nitrogen 16mg/dL (6-24) Creatinine 0.68mg/dL (0.57-1.00) Estimat Glomerular Filtration Rate 128mL/min (>59) Glucose Level 165mg/dL (60-99) Lactic Acid Level 0.6mmol/L (0.4-2.0) Calcium Level 8.1mg/dL (8.5-10.1) Total Bilirubin 0.3mg/dL (0.0-1.2) Aspartate Amino Transf (AST/SGOT) 241U/L (0-50) Alanine Aminotransferase (ALT/SGPT) 206U/L (0-32) Alkaline Phosphatase 407U/L (25-150) Total Protein 5.2g/dL (6.4-8.4) Albumin 2.8g/dL (3.4-5.0) Procalcitonin 0.05ng/mL (0.00-0.08) Exam General: Alert, Oriented X3, Cooperative Lower Extremities: Left: Edema localized (forefoot, improving) Lower Extremity Pulses: Palpable: Left Dorsalis Pedis Left Posterior Tibal Right Dorsalis Pedis Right Posterior Tibal Postop Sensory Motor: Distal Motor Intact Podiatry WOUND : Wound Location/Description 5 cm x 1.5 cm open wound, undermined dorsomedially 1.5 cm and dorsolaterally 0.5 cm. Sanguinous drainage on the previous dressing. No active bleeding. No purulence. No necrosis. No obviously exposed fifth metatarsal. Skin edges appear viable. Erythema has decreased. Surgical Cast or Splint: None Assessment & Plan Problems: (1) Osteomyelitis of left foot Qualifiers: Chronicity: acute Qualified Code: M86.172 - Other acute osteomyelitis, left ankle and foot Plan: At this point, the patient's wound is going to be irrigated with normal saline and dressing changed on a daily basis. I did not remove the packing placed yesterday, but I did partially remove some of it in the deepest portion so that she may granulate in. Dr. Valle will likely see the patient in my absence tomorrow. If delayed primary closure is to be done, it will most likely happened on Sunday. If not, the patient can be discharged home on Sunday on oral antibiotics, pending culture and sensitivities. She does have home health set up and could have dressing changes done at home, provided that a moist wound healing environment continues. It is very important that her dressing does not remain dry. Continue with heel touch weightbearing, using a walker. Status: Acute ICD Code: M86.9 VTE Prophylaxis: Sub-Q Heparin (Unfractionated) Beata Foley DPM Aug 09, 2016 17:26
[2016-08-09] MEDS: 0.9% Sodium Chloride 1,000 ML IV SCH (18:12)
[2016-08-09] MEDS: hydrOXYzine Pamoate 25 mg Capsule PO PRN ×2 (18:37→22:45)
--- NOTE | 2016-08-09 19:12 | NUR ---
Pain/Activity- Patient complained of left foot pain. Oral pain meds effective for most of discomfort. Patient able to sleep at intervals. Ambulating by self with minimal weight bear to bathroom. Dressing has remained dry and intact.
[2016-08-10] VITALS (7 sets, daily range): BP systolic 163–180; BP diastolic 69–95; PULSE 65–104; RESP 16–18; O2SAT 94–98
[2016-08-10] MEDS ORDERED: Vancomycin Serum Trough XX ONE
[2016-08-10] MEDS: 0.9% Sodium Chloride 1,000 ML IV SCH ×2 (00:15→07:49)
[2016-08-10] MEDS: Vancomycin 1 Gm/200 mL NS Premix IV SCH (00:26)
[2016-08-10] MEDS: HYDROmorphone 1 mg/mL Inj IVPUSH PRN (00:30)
[2016-08-10] MEDS: Piperacillin-Tazo 3.375 Gm Inj 3.375 GM in Dextrose 5% Minibag Plus 50 ML IV SCH ×3 (02:44→18:01)
--- NOTE | 2016-08-10 02:53 | NUR ---
Pain Pt. c/o left foot pain and states analgesia not very eff. yet sleeps soundly after adm.of Rx and appears to be resting comfortably.States she believes she pulled her neck muscle and rates that pain at 8/10 .Alt. po analgesia with IVP dilaudid and warm pack applied to neck.Seems somewhat depressed and can be abrupt with some staff members.Will cont.to monitor.
--- NOTE | 2016-08-10 03:14 | PCM.PHAPRO ---
Progress Date of Service: Aug 10, 2016 Vancomycin dosing by pharmacy for 55 y/o woman O: * The patient is on vancomycin 1000 mg every 18 hours * Vancomycin level of 8.7 mcg/mL prior to the fourth dose * SCr of 0.68 on 08/09 A: * The level was drawn before the fourth dose was hung per the patient's RN * The trough is not at target range * SCr appears stable P: * Increasing vancomycin dosing to 1000 mg every 12 hours * Drawing another trough level after 3 more doses * Target trough range of 15 - 20 mcg/mL Thank you. Pharmacy will continue to follow this patient. Gala Lee, PharmD Gala Lee Aug 10, 2016 03:14
[2016-08-10] MEDS: hydrOXYzine Pamoate 25 mg Capsule PO PRN (04:48)
[2016-08-10] MEDS: oxyCODONE-Acetamin 5-325 mg Tablet PO PRN ×4 (04:49→21:48)
[2016-08-10] MEDS: Insulin Human REGular 300 Unit/3 mL Inj SUBQ SCH ×4 (07:30→21:53)
[2016-08-10 07:50] LABS: Mean Corpuscular Hemoglobin 28.6 pg (27.0-35.0); Mean Corpuscular Volume 86.7 fL (81-100)
[2016-08-10] MEDS: Insulin GLARgine 100 Unit/mL Syringe SUBQ SCH ×2 (08:00→21:49)
[2016-08-10] MEDS: metroNIDAZOLE Inj 500 MG in IV Premix 1 EACH IV SCH ×2 (08:04→21:22)
[2016-08-10] MEDS: Vancomycin Dose per Pharmacist XX SCH (08:30)
--- NOTE | 2016-08-10 09:18 | NUR ---
Lantus withheld Blood sugar 86. Lantus held per Dr Lopez. Dr Lopez aware that patient refused Metformin. patient is positive MRSA and on precautions. Dr Lopez at bed side and speaking to patient.
--- NOTE | 2016-08-10 14:14 | PCM.PNPOD ---
Subjective Date of Service: Aug 10, 2016 Date of Service: Aug 10, 2016 Visit Information: Reason for Visit Osteomyelitis Left Foot Surgery/Surgery Date Post-Op Day # Date of Admission: Aug 07, 2016 at 19:52 Hospital Day # Subjective: This 55-year-old female patient is seen 48 hours status post I&D abscess dorsolateral left forefoot by Dr. argueta and is without podiatric complaint. Patient does complain of neck pain which she awoke with this morning. Objective Vital Sign - Last Date Time Temp Pulse Resp B/P Pulse Ox O2 Delivery O2 Flow Rate FiO2 08/10/16 10:37 36.8 85 16 180/95 96 Room Air Intake and Output 08/09/16 08/09/16 08/10/16 Cumulative From/Thru 15:00 23:00 07:00 08/07/16 15:43 - 08/10/16 06:10 Intake Total 1732 ml 1908 ml 9528 ml Output Total 1100 ml 900 ml 6120 ml Balance 632 ml 1008 ml 3408 ml Intake Oral 840 ml 880 ml 4088 ml IV Total 892 ml 1028 ml 5440 ml Output Urine Total 1100 ml 900 ml 6100 ml Estimated Blood Loss 20 ml # Voids 2 2 # Bowel Movements 0 0 Result Diagram: 08/10/16 0712 08/10/16 0712 Lab Test 08/07/16 18:26 08/07/16 21:01 08/08/16 06:18 08/09/16 06:40 Prothrombin Time 9.8sec (8.1-12.5) Prothromb Time International Ratio 0.92ratio Hemoglobin A1c 12.5% (4.8-5.6) Magnesium Level 1.7mg/dL (1.6-2.6) Hold [place] Top Tube Received (Received) Urine Color Yellow (YELLOW) Urine Appearance Clear (CLEAR,HAZY) Urine pH 6.0 (5.0-8.0) Urine Specific [place] 1.010 (1.003-1.035) Urine Protein Negativemg/dL (NEG,TRACE) Urine Glucose (UA) >1000mg/dL (NEGATIVE) Urine Ketones Negativemg/dL (NEGATIVE) Urine Occult Blood Negative (NEGATIVE) Urine Nitrite Negative (NEGATIVE) Urine Bilirubin Negative (NEGATIVE) Urine Urobilinogen Normalmg/dL (NORMAL) Urine Leukocyte Esterase Negative (NEGATIVE) Urine RBC 0-2/hpf (0-2) Urine WBC 0-5/hpf (0-5) Urine Epithelial Cells Few/hpf (NONE-MOD) Urine Crystals None seen (NONE SEEN) Urine Bacteria Few/hpf (NONE-FEW) Urine Hyaline Casts None/lpf (NONE) Urine Granular Casts None seen (NONE SEEN) Urine Waxy Casts None seen (NONE SEEN) Urine Red Blood Cell Casts None seen (NONE SEEN) Urine White Blood Cell Casts None seen (NONE SEEN) Urine Mucus None seen (None Seen) Urine Trichomonas None seen (NONE SEEN) Urine Yeast None (NONE SEEN) Urinalysis Comment None Urine Culture Reflexed Not indicated Neutrophils (%) (Auto) 48.7% (40-74) Lymphocytes (%) (Auto) 36.2% (14-46) Monocytes (%) (Auto) 10.7% (4-12) Eosinophils (%) (Auto) 3.5% (0-5) Basophils (%) (Auto) 0.6% (0-3) Lactic Acid Level 0.6mmol/L (0.4-2.0) Procalcitonin 0.05ng/mL (0.00-0.08) Test 08/10/16 01:37 08/10/16 07:12 Vancomycin Level Trough 8.7mcg/mL White Blood Count 9.0th/mm3 (3.8-10.1) Red Blood Count 3.99mil/mm3 (3.90-5.20) Hemoglobin 11.4g/dL (12.0-15.6) Hematocrit 34.6% (35.0-46.0) Mean Corpuscular Volume 86.7fL (81-100) Mean Corpuscular Hemoglobin 28.6pg (27.0-35.0) Mean Corpuscular Hemoglobin Concent 32.9% (32.0-37.0) Red Cell Distribution Width 12.6% (12.3-15.4) Platelet Count 266bil/L (150-400) Sodium Level 141mEq/L (134-144) Potassium Level 4.2mEq/L (3.5-5.2) Chloride Level 104mEq/L (97-108) Carbon Dioxide Level 23mmol/L (18-29) Blood Urea Nitrogen 15mg/dL (6-24) Creatinine 0.65mg/dL (0.57-1.00) Estimat Glomerular Filtration Rate 135mL/min (>59) Glucose Level 102mg/dL (60-99) Calcium Level 8.7mg/dL (8.5-10.1) Total Bilirubin 0.2mg/dL (0.0-1.2) Aspartate Amino Transf (AST/SGOT) 80U/L (0-50) Alanine Aminotransferase (ALT/SGPT) 135U/L (0-32) Alkaline Phosphatase 463U/L (25-150) Total Protein 5.6g/dL (6.4-8.4) Albumin 3.2g/dL (3.4-5.0) Diagnostics Intraoperative cultures showing staph, probable aureus, sensitivities pending at this time Exam Physical Exam Patient found resting comfortably in bed feet are elevated, slight sanguinous saturation of the bandage at the surgical site. Wound appears stable, no significant new necrosis, minimal granulation tissue, periwound soft tissues mildly hyperemic and indurated but without acute inflammation or clinical appearance of residual cellulitis. Several superficial hematomas are noted in which are flushed out of the wound. Wound measures approximately 5 cm x 1.5 cm 1-2 cm in depth with slight obliquity to the wound and short flap laterally. Remainder of the pedal skin is intact General: Alert, Oriented X3, Cooperative Lower Extremities: Left: Edema localized (forefoot, improving) Lower Extremity Pulses: Palpable: Left Dorsalis Pedis Left Posterior Tibal Right Dorsalis Pedis Right Posterior Tibal Postop Sensory Motor: Distal Motor Intact Surgical Cast or Splint: None Assessment & Plan Impression Stable postoperative wound, not amenable to primary closure due to quality of periwound skin and soft tissue as well as the wound which would necessitate excessive tension on the margins to achieve closure. Problems: (1) Osteomyelitis of left foot Qualifiers: Chronicity: acute Qualified Code: M86.172 - Other acute osteomyelitis, left ankle and foot Plan: At this visit the wound is conservatively debrided of hematoma and superficial slough, irrigated and loose mesh saline wet-to-dry packing and noncompressive gauze bandage reapplied. Per my discussion with Dr. Argueta, however recommendation is that this patient be discharged to home tomorrow with home health aide to provide dressing change every 48 hours and with outpatient follow-up at the [facility] with Dr. Roy or Dr. Argueta, next week and on by mouth antibiotics per discretion of the hospitalist. If patient remains hospitalized would recommend wound care nurse consult tomorrow. Status: Acute ICD Code: M86.9 VTE Prophylaxis: Sub-Q Heparin (Unfractionated) Charanjit Valle DPM Aug 10, 2016 14:14
--- NOTE | 2016-08-10 15:27 | NUR ---
patient refused physical therapy. patient ambulates to bathroom. Addendum: 08/10/16 at 1528 by RAS SUTHERLAND RN Amended: Links added.
[2016-08-10] MEDS: Vancomycin Inj 1,000 MG in IV Premix 1 EACH IV SCH (15:52)
--- NOTE | 2016-08-10 17:01 | PCM.PNMED ---
Subjective Date of Service Aug 10, 2016 Subjective Patient was seen and examined at bedside today. Patient denies any chest pain, shortness of breath, nausea, vomiting, diarrhea. Patient only complains of left lower extremity pain and neck pain Exam Vital Signs Vital Sign - Last Date Time Temp Pulse Resp B/P Pulse Ox O2 Delivery O2 Flow Rate FiO2 08/10/16 14:41 36.7 65 16 169/69 97 Room Air Intake and Output 08/09/16 08/09/16 08/10/16 Cumulative From/Thru 15:00 23:00 07:00 08/07/16 15:43 - 08/10/16 06:10 Intake Total 1732 ml 1908 ml 9528 ml Output Total 1100 ml 900 ml 6120 ml Balance 632 ml 1008 ml 3408 ml Intake Oral 840 ml 880 ml 4088 ml IV Total 892 ml 1028 ml 5440 ml Output Urine Total 1100 ml 900 ml 6100 ml Estimated Blood Loss 20 ml # Voids 2 2 # Bowel Movements 0 0 Exam Physical Exam: GEN: Patient was awake, alert, responding appropriately to questions HEENT: PERRLA, EOMI, Neck soft supple, trachea midline, nomocephalic/atraumatic CV: +S1/S2, RRR, no murmur auscultated Respiratory: CTAB, no wheezes, rales, rhonchi GI: +bowel sounds x4, soft, compressible, non TTP EXT: no c/c/e, left foot bandage in place clean dry and intact Neuro: CN II-XII grossly intact Psych: mood and affect were appropriate IVs and Medications Medications Reviewed: Medications were reviewed in detail Lab and Diagnostics Result Diagram: 08/10/1612 08/10/16 0712 X-Rays, CTs and MRIs Patient Name: JIMI GONZALES MR#: [id number] [place] [facility] [place] Phys: Kimberley Hughes MD Date of Service: 08/07/161741 PROCEDURE: X-RAY LEFT FOOT, TWO VIEWS ([id number]) INDICATIONS: foot infection TECHNIQUE: 2 views of the foot were acquired. COMPARISON: [facility], CR, XR FOOT 3VW LT, 05/31/2016, 19:35. FINDINGS: Bones: There is been amputation of the fifth digit distal to the mid metatarsal. There is irregular appearance at the amputated site of the metatarsal. Soft tissues: No tibiotalar joint effusion. Achilles tendon appears normal. IMPRESSION: Amputated fifth digit distal to the mid fifth metatarsal with osseous irregularity. Developing osteomyelitis cannot be excluded. Dictated by: Kari Oates M.D. on 08/07/2016 at 18:08 Approved by: Kari Oates M.D. on 08/07/2016 at 18:08 Assessment & Plan 55yoF with past medical history of insulin dependent diabetes with recent fifth left digit amputation (05/2016) admitted d/t concern for osteomyelitis following I&D of left foot by podiatry Diabetic foot infection, acute, POA -abscess drained by podiatry as outpatient -Surgery scheduled for yesterday -XR reviewed, some osseous change that is concerning for osteomyelitis -Continue piperacillin-tazobactam, vancomycin, and metronidazole started in ED, continue piperacillin-tazobactam and vancomycin (pharm to dose) -metronidazole as per request of podiatry given patient's history of c. diff to be used for prophylaxis since the patient is getting a lot of medications -mIVF -pain management with 0.5-1mg q3hr IV hydromorphone, and home dose hydrocodone- acetaminophen -podiatry consulting, recs appreciated Hypotension (resolved) -Blood pressure is blood pressure is 169/69 -Bolus IV fluids 1 L normal saline -Discontinue IV saline at 80 mg per hour -We will continue to monitor Diabetes, Insulin Dependent, chronic, POA -Hemoglobin A1c is 12.5 -Discontinue metformin 500 mg twice a day patient is unable to tolerate -Discontinue glyburide patient is unable to tolerate - SSI mild -Change Lantus dose to 20 units in the morning and 30 units at night patient may be able to be changed to 30 units daily at bedtime only as she seems to be responding well to this we will reassess in the morning. -Nutrition consult for diabetes education Htn/lipids/cad, Chronic, POA -continue home metoprolol, atorvastatin. -continue ASA -please note that past records are reviewed and patient does have carotid stenosis. Unclear if follow up was completed -Tobacco dependence, chronic, POA -recommended cessation, discussed with patient, has cut back significantly as per patient -nicotine replacement -Cerebrovascular disease, chronic, POA- -Previous R-sided CEA a -60+% stenosis she says she had on the left. - H/o Constipation- -bowel regimen ordered, consider scheduling Disposition: Patient has been a little bit difficult to manage as she has been refusing some of her diabetes medications as well as physical therapy. The patient does seem to be stable at this time we will continue to monitor her blood pressure and her blood glucose and make medical adjustments as necessary. I discussed with podiatry today and I feel the patient is stable to go home with home health and saline wet-to-dry dressing changes every 48 hours. Patient may use a postop shoe and use only her heel for ambulation. Patient should follow up with either Dr. Foley or in one week. Awaiting antibiotic sensitivities to the patient's MRSA. Patient will most likely be discharged home tomorrow with home health and outpatient oral antibiotics. GI Prophylaxis: Not indicated VTE Prophylaxis: Sub-Q Heparin (Unfractionated) VTE Mechanical Devices: Intermittant Pneumatic CD Resuscitation Status: CPR: Attempt Resuscitation Time spent Greater than 35 minutes Promise Lopez DO Aug 10, 2016 17:01
--- NOTE | 2016-08-10 17:38 | NUR ---
Refused insulin blood sugar before dinner 270. patient refused to take insulin and states," I am not eating dinner and i do not want insulin." Dr Lopez aware. Education provided r/t diabetes and insulin. patient no compliant X2 to take insulin.
[2016-08-11 01:44] VITALS: BP 155/78; PULSE 79; RESP 20; O2SAT 96
[2016-08-11] MEDS: oxyCODONE-Acetamin 5-325 mg Tablet PO PRN ×3 (01:55→14:34)
[2016-08-11] MEDS: Piperacillin-Tazo 3.375 Gm Inj 3.375 GM in Dextrose 5% Minibag Plus 50 ML IV SCH ×2 (02:00→10:56)
--- NOTE | 2016-08-11 04:06 | NUR ---
Pain Pt. reports pain on and off during shift. PO Percocet given for pain. Will continue to monitor.
[2016-08-11 05:55] VITALS: PULSE 73
[2016-08-11] MEDS: Vancomycin Inj 1,000 MG in IV Premix 1 EACH IV SCH (06:08)
[2016-08-11 06:16] VITALS: BP 157/87; PULSE 75; RESP 18; O2SAT 95
[2016-08-11 07:24] LABS: Mean Corpuscular Hemoglobin 28.5 pg (27.0-35.0); Mean Corpuscular Volume 86.5 fL (81-100)
[2016-08-11] MEDS: Insulin Human REGular 300 Unit/3 mL Inj SUBQ SCH ×2 (07:30→12:14)
[2016-08-11 08:00] VITALS: PULSE 76
[2016-08-11] MEDS: Vancomycin Dose per Pharmacist XX SCH (08:30)
[2016-08-11 08:35] VITALS: BP 171/77; PULSE 73
[2016-08-11] MEDS: metroNIDAZOLE Inj 500 MG in IV Premix 1 EACH IV SCH (08:37)
[2016-08-11] MEDS: Insulin GLARgine 100 Unit/mL Syringe SUBQ SCH (08:38)
--- NOTE | 2016-08-11 10:29 | NUR ---
Social Work: Readiness for Discharge Data: EMR reviewed. Pt is on day 4 of hospitalization. Pt is not medically stable, anticipate discharge later today. PT attempted to assess pt, pt declined. 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 Pt open with [facility], pt to resume [facility] at time of discharge. SW followed up with pt regarding wound dressings management. Pt states she can manage her dressings at home. Pt to discharge home via POV with [facility] to resume. No anticipated discharge needs. [employer] will continue to follow. Assessment: Pt who is independent at baseline. Plan: Pt will d/c home via POV with [facility] to resume. No anticipated discharge needs. [employer] CONS[employer]ANT will continue to follow. LALIT Lee
--- NOTE | 2016-08-11 12:18 | PCM.DIMED ---
Discharge Instructions Date of Service Aug 11, 2016 Dates of Hospitalization Aug 07, 2016 at 19:52 Discharge Diagnosis Discharge Diagnosis Diabetic foot infection MRSA Hypotension Diabetes insulin-dependent Tobacco abuse Hypertension Hyperlipidemia CAD Medication Instructions Please follow your instructions for her diabetic medication as prescribed. Your blood sugars are very uncontrolled and in order to have adequate healing U need strict blood sugar control. Please do not manage this on your own will follow the instructions as stated. Diet Heart Healthy, Diabetic Activity Other (please do not walk on her foot without a postop surgical shoe and please only walk on the heel do not put full pressure on to this foot until followed up with podiatry) Call your provider Fever or Chills, Shortness of breath, Bleeding, Chest pain, Vomitting, Weakness (unilateral) Patient Instructions Home health will help with your dressing changes. He should have a wet-to-dry dressing changed every 48 hours. Please follow the instructions from home health for these dressing changes. Follow-up Provider: Mraio Roy DPM Follow-up with PCP in: 1 week (08/16/2016 at 2:30 PM) Provider: Juan M Hull MD Follow-up in: 2 weeks (08/24/2016 at 2:30 PM) Promise Lopez DO Aug 11, 2016 12:18
--- NOTE | 2016-08-11 12:26 | NUR ---
Social Work: Discharge Data: EMR reviewed. Pt is on day 4 of hospitalization. Pt to discharge today. PT attempted to assess pt, pt declined. 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 Pt to resume [facility] at discharge. SW contacted Paul Santizo, [facility] liaison, informing him of pt's discharge. Pt to discharge home via POV with [facility] to resume. No other discharge needs. Assessment: Pt who is independent at baseline. Plan: Pt will d/c home via POV with [facility] to resume. No discharge needs. Haley Sanz, CONTINUOUS IMPROVEMENT MANAGER
[2016-08-11] MEDS ORDERED: CLIN-78 PO (12:28)
[2016-08-11] MEDS ORDERED: LISI-567 PO (12:28)
[2016-08-11] MEDS ORDERED: INSU100V7 SUBQ ×2 (12:28)
--- NOTE | 2016-08-11 12:34 | PCM.DC.MED ---
Discharge Summary Date of Service Aug 11, 2016 Dates of Hospitalization Date of Hospital Admission Aug 07, 2016 at 19:52 Date of Discharge: Aug 11, 2016 Providers: Admitting Physician: Medhat Desouza DO Primary Care Physician: Juan M Hull MD Attending Physician: Beata Foley DPM Diagnosis at Time of Discharge Diagnosis at Time of Discharge Diabetic foot infection MRSA Hypotension Diabetes insulin-dependent Tobacco abuse Hypertension Hyperlipidemia CAD Consultations Podiatry Procedures XRay, CTs & MRIs Patient Name: JIMI GONZALES MR#: [id number] [place] [facility] [place] Phys: Kimberley Hughes MD Date of Service: 08/07/16 1742 PROCEDURE: X-RAY LEFT FOOT, TWO VIEWS ([id number]) INDICATIONS: foot infection TECHNIQUE: 2 views of the foot were acquired. COMPARISON: [facility], , XR FOOT 3VW LT, 05/31/2016, 19:35. FINDINGS: Bones: There is been amputation of the fifth digit distal to the mid metatarsal. There is irregular appearance at the amputated site of the metatarsal. Soft tissues: No tibiotalar joint effusion. Achilles tendon appears normal. IMPRESSION: Amputated fifth digit distal to the mid fifth metatarsal with osseous irregularity. Developing osteomyelitis cannot be excluded. Dictated by: Kari Oates M.D. on 08/07/2016 at 18:08 Approved by: Kari Oates M.D. on 08/07/2016 at 18:08 Invasive Procedures I&D of left foot in the OR Brief History 55yoF with past medical history of insulin dependent diabetes with recent fifth left digit amputation (05/2016) admitted d/t concern for osteomyelitis following I&D of left foot by podiatry Patient states that she has been following up with Dr. Roy following her recent left fifth digit amputation in 2016. Over the weekend she had increased pain rated as non-radiating 7/10 throbbing pain throughout her left foot. She mentions that she may have benefitted from coming into clinic sooner but called to get an appointment first thing Sunday morning. She denies fevers , chills, nausea, vomiting at this time she does however endorse continued left foot pain. Most recently she was admitted at [facility] and is s/p partial amputation of her left fifth digit. No complications were noted on discharge summary. Hospital Course 55yoF with past medical history of insulin dependent diabetes with recent fifth left digit amputation (05/2016) admitted d/t concern for osteomyelitis following I&D of left foot by podiatry Patient was admitted to the hospital for diabetic foot infection secondary to MRSA. The patient is an uncontrolled diabetic as her hemoglobin A1c is 12.5 and is also a smoker. The patient is very noncompliant with her glucose medications. During the patient's stay an optimal medication regimen for the patient was attempted to be performed however the patient consistently refused insulin and would not follow recommendations due to a previous bad experiences an outpatient with hypoglycemia. It is explained to the patient that because we are monitoring her blood glucose so closely that it was less likely for her to have hypoglycemia and if she did start to have any of the symptoms that we could manage that here in the hospital however the patient was very adamant that she can manage this herself and refused to be compliant especially with her sliding scale insulin. The patient also refused physical therapy for her foot stating that she is able to manage on her own and she does not need any recommendations or help even though podiatry placed her on toe-touch weightbearing status post surgery. The patient did have a bout of hypotension however this resolved with IV fluid management and the patient then was able to be restarted on her blood pressure medications. The patient was started on lisinopril 20 mg daily at bedtime as the patient seemed to run hypertensive at night and was more stable during the day. The patient is being discharged home with home health and it has been explained to the patient extensively how important it is for her to follow the instructions of nitrate and follow the instructions of her diabetes regiment as this would be the best thing for healing. It was explained to the patient that if she does not heal and does not follow the recommendations that she could potentially have an amputation at some point secondary to noncompliance. The patient stated that she understood and that she can manage. The patient will follow-up with both and Dr. Hull in the next 1-2 weeks appointments have been made and the patient has been made aware. The patient is being discharged home with home health in stable condition on a 10 day course of clindamycin as culture sensitivities indicate that this antibiotic is appropriate. Diabetic foot infection, acute, POA -abscess drained by podiatry as outpatient -Surgery scheduled for yesterday -XR reviewed, some osseous change that is concerning for osteomyelitis -Continue piperacillin-tazobactam, vancomycin, and metronidazole started in ED, continue piperacillin-tazobactam and vancomycin (pharm to dose) -metronidazole as per request of podiatry given patient's history of c. diff to be used for prophylaxis since the patient is getting a lot of medications -mIVF -pain management with 0.5-1mg q3hr IV hydromorphone, and home dose hydrocodone- acetaminophen -podiatry consulting, recs appreciated Hypotension (resolved) -Blood pressure is blood pressure is 169/69 -Bolus IV fluids 1 L normal saline -Discontinue IV saline at 80 mg per hour -We will continue to monitor Diabetes, Insulin Dependent, chronic, POA -Hemoglobin A1c is 12.5 -Discontinue metformin 500 mg twice a day patient is unable to tolerate -Discontinue glyburide patient is unable to tolerate - SSI mild -Change Lantus dose to 20 units in the morning and 30 units at night patient may be able to be changed to 30 units daily at bedtime only as she seems to be responding well to this we will reassess in the morning. -Nutrition consult for diabetes education Htn/lipids/cad, Chronic, POA -continue home metoprolol, atorvastatin. -continue ASA -please note that past records are reviewed and patient does have carotid stenosis. Unclear if follow up was completed -Tobacco dependence, chronic, POA -recommended cessation, discussed with patient, has cut back significantly as per patient -nicotine replacement -Cerebrovascular disease, chronic, POA- -Previous R-sided CEA a -60+% stenosis she says she had on the left. - H/o Constipation- -bowel regimen ordered, consider scheduling Exam Vital Signs (Last) Date Time Temp Pulse Resp B/P Pulse Ox O2 Delivery O2 Flow Rate FiO2 08/11/16 08:35 73 171/77 08/11/16 06:16 36.9 18 95 Room Air Exam Physical Exam: GEN: Patient was awake, alert, responding appropriately to questions HEENT: PERRLA, EOMI, Neck soft supple, trachea midline, nomocephalic/atraumatic CV: +S1/S2, RRR, no murmur auscultated Respiratory: CTAB, no wheezes, rales, rhonchi GI: +bowel sounds x4, soft, compressible, non TTP EXT: no c/c/e, left foot lesion dressing is clean dry and intact, left lower extremity nontender to palpation, tenderness only at the site of the wound. Neuro: CN II-XII grossly intact Psych: mood and affect were appropriate Test 08/07/16 18:26 08/07/16 21:01 08/08/16 06:18 08/09/16 06:40 Prothrombin Time 9.8sec (8.1-12.5) Prothromb Time International Ratio 0.92ratio Hemoglobin A1c 12.5% (4.8-5.6) Magnesium Level 1.7mg/dL (1.6-2.6) Hold [place] Top Tube Received (Received) Urine Color Yellow (YELLOW) Urine Appearance Clear (CLEAR,HAZY) Urine pH 6.0 (5.0-8.0) Urine Specific [place] 1.010 (1.003-1.035) Urine Protein Negativemg/dL (NEG,TRACE) Urine Glucose (UA) >1000mg/dL (NEGATIVE) Urine Ketones Negativemg/dL (NEGATIVE) Urine Occult Blood Negative (NEGATIVE) Urine Nitrite Negative (NEGATIVE) Urine Bilirubin Negative (NEGATIVE) Urine Urobilinogen Normalmg/dL (NORMAL) Urine Leukocyte Esterase Negative (NEGATIVE) Urine RBC 0-2/hpf (0-2) Urine WBC 0-5/hpf (0-5) Urine Epithelial Cells Few/hpf (NONE-MOD) Urine Crystals None seen (NONE SEEN) Urine Bacteria Few/hpf (NONE-FEW) Urine Hyaline Casts None/lpf (NONE) Urine Granular Casts None seen (NONE SEEN) Urine Waxy Casts None seen (NONE SEEN) Urine Red Blood Cell Casts None seen (NONE SEEN) Urine White Blood Cell Casts None seen (NONE SEEN) Urine Mucus None seen (None Seen) Urine Trichomonas None seen (NONE SEEN) Urine Yeast None (NONE SEEN) Urinalysis Comment None Urine Culture Reflexed Not indicated Neutrophils (%) (Auto) 48.7% (40-74) Lymphocytes (%) (Auto) 36.2% (14-46) Monocytes (%) (Auto) 10.7% (4-12) Eosinophils (%) (Auto) 3.5% (0-5) Basophils (%) (Auto) 0.6% (0-3) Lactic Acid Level 0.6mmol/L (0.4-2.0) Procalcitonin 0.05ng/mL (0.00-0.08) Test 08/10/16 01:37 08/11/16 06:50 Vancomycin Level Trough 8.7mcg/mL White Blood Count 6.6th/mm3 (3.8-10.1) Red Blood Count 3.86mil/mm3 (3.90-5.20) Hemoglobin 11.0g/dL (12.0-15.6) Hematocrit 33.4% (35.0-46.0) Mean Corpuscular Volume 86.5fL (81-100) Mean Corpuscular Hemoglobin 28.5pg (27.0-35.0) Mean Corpuscular Hemoglobin Concent 32.9% (32.0-37.0) Red Cell Distribution Width 12.7% (12.3-15.4) Platelet Count 256bil/L (150-400) Sodium Level 142mEq/L (134-144) Potassium Level 3.9mEq/L (3.5-5.2) Chloride Level 105mEq/L (97-108) Carbon Dioxide Level 25mmol/L (18-29) Blood Urea Nitrogen 13mg/dL (6-24) Creatinine 0.63mg/dL (0.57-1.00) Estimat Glomerular Filtration Rate 140mL/min (>59) Glucose Level 143mg/dL (60-99) Calcium Level 8.7mg/dL (8.5-10.1) Total Bilirubin 0.3mg/dL (0.0-1.2) Aspartate Amino Transf (AST/SGOT) 29U/L (0-50) Alanine Aminotransferase (ALT/SGPT) 89U/L (0-32) Alkaline Phosphatase 406U/L (25-150) Total Protein 5.5g/dL (6.4-8.4) Albumin 3.1g/dL (3.4-5.0) Discharge Medications Discharge Medications Aspirin Chew (Aspirin Chew) 81 Mg Chew 81 MG PO DAILY (Reported) Atorvastatin Calcium (Atorvastatin Calcium) 40 Mg Tablet 40 MG PO HS Prescribed by: TRENA MENEZES MD Cholecalciferol (Vitamin D3) (Vitamin D3) 50,000 Unit Capsule 50,000 UNIT PO WEEKLY (Reported) MONDAYS Clindamycin (Clindamycin) 300 Mg Capsule 300 MG PO QID Prescribed by: MANDIE OAKLEY DO Duloxetine (Duloxetine) 60 Mg Capsule.dr 60 MG PO DAILY (Reported) Insulin Glargine (Lantus U100 Insulin Vial) 100 Unit/Ml Vial 30 UNIT SUBQ BID ( Reported) Insulin Glargine (Lantus U100 Insulin Vial) 100 Unit/Ml Vial 20 UNIT SUBQ MORNING Prescribed by: MANDIE OAKLEY DO Insulin Glargine (Lantus U100 Insulin Vial) 100 Unit/Ml Vial 30 UNIT SUBQ HS Prescribed by: MANDIE OAKLEY DO Insulin Human Lispro (HumaLOG U100 Insulin Vial) 100 Unit/Ml Unit 1-8 UNIT SUBQ ACHS (Reported) Check blood sugars before meals and at bedtime. Use correction factor only before meals. Blood Sugar Lispro Correction: <151, 0 units; 151-175, 1 unit; 176-200, 2 units; 201-225, 3 units; 226-250, 4 units; 251-275, 5 units; 276-300 , 6 units; 301-325, 7 units; 326-350, 8 units; 351-375, 9 units; 376-400, 10 units; >400, 12 units. Levothyroxine (Synthroid) 100 Mcg Tablet 100 MCG PO QAM (Reported) Lisinopril (Lisinopril) 20 Mg Tablet 20 MG PO HS Prescribed by: MANDIE OAKLEY DO Metoprolol Tartrate (Metoprolol Tartrate) 25 Mg Tablet 25 MG PO DAILY (Reported ) Pregabalin (Lyrica) 50 Mg Capsule 50 MG PO TID (Reported) Trazodone (Trazodone) 100 Mg Tablet 100 MG PO HS (Reported) As needed Hydrocodone-Acetaminophen 7.5-325 mg (Hydrocodone-Acetaminophen 7.5-325 mg) 1 Each Tablet 1 TABLET PO Q8H PRN PRN For Pain (Reported) Additional med instructions Please follow your instructions for her diabetic medication as prescribed. Your blood sugars are very uncontrolled and in order to have adequate healing U need strict blood sugar control. Please do not manage this on your own will follow the instructions as stated. Followup Plan Discharge Diet: Heart Healthy, Diabetic Discharge Activity: Other (please do not walk on her foot without a postop surgical shoe and please only walk on the heel do not put full pressure on to this foot until followed up with podiatry) Patient Instructions Home health will help with your dressing changes. He should have a wet-to-dry dressing changed every 48 hours. Please follow the instructions from home health for these dressing changes. Follow-up Provider: Mario Roy DPM Follow-up with PCP in: 1 week (08/16/2016 at 2:30 PM) Provider: Juan M Hull MD Follow-up in: 2 weeks (08/24/2016 at 2:30 PM) Time spent 40 minutes copies to: Mario Roy DPM; Juan M Hull MD, Precious L DO Aug 11, 2016 12:34
[2016-08-11] MEDS ORDERED: OXYC1TAB24 PO (14:46)
--- NOTE | 2016-08-11 15:12 | NUR ---
Discharge Pt was given pain medication at 1430. Pt then told stated that she was going to drive herself home. Pt was told she is not allowed to drive while taking narcotics and that she needed to find a ride home or wait until 1830. Pt was unhappy about not having a RX for pain medication. notified and RX was given. Pt stated that she was leaving and that her ride was going to meet her out front. Pt proceeded to leave the campus to go smoke a cigarette. technical services representative notified and security notified. Security is escorting pt to friend's vehicle. Pt also stated that she did not need her Lantus and lisinopril RX and left them on the bed. Pt was educated about controlling her blood sugar and taking all of her RX as prescribed. Pt educated about wearing boot and not applying full pressure to her right foot. Gave hard copy of RX to security to give to the pt. IV d/c'd intact. F/up apts made for pt. All belongings with pt. No items in the safe or in the pharmacy.
[2016-08-11] MEDS ORDERED: Vancomycin Serum Trough XX ONE (15:30)
== END 2016-08-11 15:00 | disposition home health service (06) | DRG 465 ==
LOC: SED 15:29 → OSC 19:52
PROVIDERS: ADMIT Psychiatry & Neurology Psychiatry; ATTEND Podiatrist
PROC: 0JBR0ZZ Excision of Left Foot Subcutaneous Tissue and Fascia, Open Approach (ICD-10-PCS; principal; 2016-08-08 15:30)
DX: M86.172 Other acute osteomyelitis, left ankle and foot (principal); I95.9 Hypotension, unspecified; E11.621 Type 2 diabetes mellitus with foot ulcer; E11.65 Type 2 diabetes mellitus with hyperglycemia; Z79.82 Long term (current) use of aspirin; Z79.4 Long term (current) use of insulin; Z86.14 Personal history of Methicillin resistant Staphylococcus aureus infection; F17.210 Nicotine dependence, cigarettes, uncomplicated; Z89.422 Acquired absence of other left toe(s); I10 Essential (primary) hypertension; E78.5 Hyperlipidemia, unspecified; I25.10 Atherosclerotic heart disease of native coronary artery without angina pectoris; B95.62 Methicillin resistant Staphylococcus aureus infection as the cause of diseases classified elsewhere; Z91.19 Patient's noncompliance with other medical treatment and regimen

== ENCOUNTER 2016-11-24 19:05 | Emergency (ER) | payer OTHER ==
[~2016-11-24 19:05] MED LIST changes: -AMLO5TAB2 PO; -ASPI-235 PO; +ASPI81TA3 PO; +CLIN-78 PO; -CLOP75TA28 PO; -DOXY100T2 PO; +DULO60CA61 PO; +HYDR-3825 PO; -HYDR-4003 PO; +INSLIS SUBQ; +OXYC1TAB24 PO; +PREG50CA PO; -TRAM-14 PO; -TRAZ-115 PO; +TRAZ-118 PO
--- NOTE | 2016-11-24 19:09 | ED.REPORT ---
HPI-General Illness Date of Service Nov 24, 2016 ED Provider: Dr. Dan Pt is a 56 y/o female w/ a hx of PVD, IDDM, HTN, presenting to the ED via EMS c/ o left great toe pain onset today. The patient recently had a partial amputation of her left small toe performed by fare collector Dr. Roy due to what she describes as osteomyelitis and today began to experience left great toe pain and looked and saw an open blister so she decided to call EMS. She does state that she has poor circulation and does not have full sensation of her lower extremities. She is a smoker. She has been wearing clogs and has had special shoes on order for 2 months. Podiatry: Dr. Roy Nursing Notes Stated Complaint: OPENED SURGICAL WOUND Nursing Notes Reviewed: Yes Allergies: Coded Allergies: Adhesives (Verified Allergy, Severe, Rash, 08/07/16) Blisters, Paper tape okay cranberry (Verified Allergy, Severe, Anaphylaxis, 08/07/16) gabapentin (Verified Allergy, Severe, Neurologic symptoms, 08/07/16) Stroke like symptoms amitriptyline (Verified Allergy, Intermediate, hypertension, 08/07/16) morphine (Verified Adverse Reaction, Severe, Rash, mouth blisters, 08/07/16 ) Uncoded Allergies: DISSOLVABLE SUTUTE (Allergy, Unknown, UNKNOWN, 10/30/12) Scheduled Aspirin Chew (Aspirin Chew) 81 Mg Chew 81 MG PO DAILY Atorvastatin Calcium (Atorvastatin Calcium) 40 Mg Tablet 40 MG PO HS Bacitracin (Bacitracin Ointment) 28.4 Gm Oint...g. 1 APPLIC TP DAILY Cholecalciferol (Vitamin D3) (Vitamin D3) 50,000 Unit Capsule 50,000 UNIT PO WEEKLY MONDAYS Clindamycin (Clindamycin) 300 Mg Capsule 300 MG PO QID Duloxetine (Duloxetine) 60 Mg Capsule.dr 60 MG PO DAILY Insulin Glargine (Lantus U100 Insulin Vial) 100 Unit/Ml Vial 30 UNIT SUBQ BID Insulin Glargine (Lantus U100 Insulin Vial) 100 Unit/Ml Vial 20 UNIT SUBQ MORNING Insulin Glargine (Lantus U100 Insulin Vial) 100 Unit/Ml Vial 30 UNIT SUBQ HS Insulin Human Lispro (HumaLOG U100 Insulin Vial) 100 Unit/Ml Unit 1-8 UNIT SUBQ ACHS Check blood sugars before meals and at bedtime. Use correction factor only before meals. Blood Sugar Lispro Correction: <151, 0 units; 151-175, 1 unit; 176-200, 2 units; 201-225, 3 units; 226-250, 4 units; 251-275, 5 units; 276-300 , 6 units; 301-325, 7 units; 326-350, 8 units; 351-375, 9 units; 376-400, 10 units; >400, 12 units. Levothyroxine (Synthroid) 100 Mcg Tablet 100 MCG PO QAM Lisinopril (Lisinopril) 20 Mg Tablet 20 MG PO HS Metoprolol Tartrate (Metoprolol Tartrate) 25 Mg Tablet 25 MG PO DAILY Pregabalin (Lyrica) 50 Mg Capsule 50 MG PO TID Trazodone (Trazodone) 100 Mg Tablet 100 MG PO HS Scheduled PRN Hydrocodone-Acetaminophen 7.5-325 mg (Hydrocodone-Acetaminophen 7.5-325 mg) 1 Each Tablet 1 TABLET PO Q8H PRN PRN For Pain oxyCODONE-Acetaminophen 5-325 mg (oxyCODONE-Acetaminophen 5-325 mg) 1 Each Tablet 1 TAB PO Q4H PRN PRN For Pain General Time Seen by MD: 19:08 Chief Complaint Other (toe pain) Hx Obtained From: Patient, EMS Arrived By: Ambulance Sudden in Onset?: Yes Onset Occurred: 1 - 4 hours ago Symptom Duration: Since onset Location: : Foot left Quality: Painful Severity: Current: Mild Severity: Maximum: Mild Recent Healthcare: Recent doctor visit, Previous surgery, Prior workup Past Medical History Past Medical History Notes: chronic pain, on chronic opiate usage 03/2016 Podiatry: Dr. Roy Past Medical History MRSA (Facial cellulitits, buttock abscess) Dysphagia Sinus problems Peripheral vascular disease Pneumonia (2007) Hiatal hernia Back injury S/P knee scope Hypothyroidism Reports: Asthma, COPD, Coronary artery disease, Diabetes mellitus, Hyperlipidemia, Hypertension Past Surgical History Heart cath 2001 Heart cath w/ stenting 11/2011 Bilat shoulder repair L ring finger repair R index finger repair Reports: , Carotid endarterectomy, Cataract surgery, Cholecystectomy, Hysterectomy Reports: Carpal tunnel Smoking History Current Every Day Smoker Social History Alcohol Use: "Social" Drug Use: Denies drug use Occupation lives with best friend, retired from [employer] 04/13/2016 Ambulatory Status Independent Review of Systems Full Review of Systems Constitutional: Denies: Chills, Fever Respiratory: Denies: Non-productive cough, Shortness of breath Musculoskeletal: Reports: Extremity pain Neurologic: Denies: Focal weakness, Numbness Complete sys rev & neg: except as marked. Physical Exam Vital Signs Vital Signs Date Time Temp Pulse Resp B/P Pulse Ox O2 Delivery O2 Flow Rate FiO2 11/24/16 21:32 36.5 102 18 142/87 98 Room Air 11/24/16 20:38 35.6 103 16 143/87 99 11/24/16 19:12 36.4 106 16 162/87 100 Room Air Initial VS: Reviewed Head / Eyes: Atraumatic, Normocephalic, PERRL ENT: Mucous membranes moist, Conjunctiva normal, No scleral icterus Neck: Supple, Full range of motion Respiratory: Breath sounds normal, Clear to auscultation, No respiratory distress Abdomen / GI: Soft, No distention Skin: Warm, Dry, No cyanosis Neurologic: Alert, Oriented, Nonfocal Psychiatric: Mood/affect normal, Behavior normal, Normal thought content General/Constitutional: Awake, Alert, No acute distress, Well appearing, Cooperative, Not toxic appearing Cardiovascular: Heart rate NL, Regular rhythm, Heart sounds NL, No gallop, No murmurs, No rubs, Cap refill not delayed, Peripheral circulation NL Ankle / Foot: Full range of motion, No deformity, Neurologic intact, Vascular intact 2x2 cm blister on bottom of big toe on left with flap of skin off - partial thickness DP and PT pulses intact Cap refill intact No signs of infection Interpretation & Diagnostics X-Ray Interpretation Xray Interpretation: IMPRESSION: A prior fifth ray amputation has been performed but no acute disease such as current osteomyelitis or gas within the soft tissues is found Dictated by: Ángel Venegas M.D. on 11/24/2016 at 20:13 Approved by: Ángel Venegas M.D. on 11/24/2016 at 20:15 X-Ray Ordered: Foot left Interpretation / Wet Read by: Interpret - Radiologist Re-Eval/Medical Decision Source of Hx: Old records Time of Eval: 21:19 Re-Evaluation/Progress Note: Pt rechecked. Blister was clipped, cleaned, and wrapped. Informed pt of plan for treatment. Pt understands and agrees with plan for treatment. F/U instructions and RTER warnings given. All questions addressed. Consultation : Referral / Consult Name: Beata Foely DPM Call Returned at: 19:26 Embalmer Assistant: Agrees with eval, Agrees with plan Note: Case discussed with podiatry. Recommends wound care and f/u on Sunday. Counseled Regarding: Diagnosis, Need for follow-up, When/why to return to ED Discharge & Departure Primary Impression: Wound, open, foot Encounter type: initial encounter Laterality: left Qualified Code: S91.302A - Unspecified open wound, left foot, initial encounter Disposition: Home Discharge Condition All VS Reviewed: Yes Condition: Improved Additional Instructions: Emergency department evaluation included interview examination review of past records and x-ray. The wound on your foot does not appear to be infected at present. We have cleaned it and placed a dressing. The x-ray also looks good. We discussed the case with podiatry contact the office on Sunday for follow- up. Apply antibiotic ointment and change dressing daily. Return for swelling redness fever. Referrals: Beata Foley DPM Attestation Portions of this note were transcribed by Nick Barbosa. I, Dr. Dan personally performed the history, physical exam and medical decision-making; I reviewed and confirmed the accuracy of the information in the transcribed note. Signed by Destiny Solano, 11/24/16 - 1929 copies to: Manfred Ramirez DO; Beata Foley DPM, Donald L MD Nov 24, 2016 19:08 NICK BARBOSA Nov 24, 2016 19:16
[2016-11-24 19:12] VITALS: BP 162/87; PULSE 106; RESP 16; O2SAT 100
--- NOTE | 2016-11-24 20:17 | DRSVH ---
PROCEDURE: X-RAY LEFT FOOT COMPLETE, MINIMUM THREE VIEWS ([id number]) INDICATIONS: diabetic with skin breakdown plantar big toe TECHNIQUE: 3 views of the foot were acquired. COMPARISON: [facility], CR, XR FOOT MIN 3VW WT [place] LT, 09/13/2016, 11:13. FINDINGS: Bones: No fractures or dislocations. No suspicious bony lesions. Prior amputation of the fifth ray from the fifth metatarsal distal diaphysis distally, but no acute disease. Soft tissues: No tibiotalar joint effusion. Achilles tendon appears normal. IMPRESSION: A prior fifth ray amputation has been performed but no acute disease such as current ost eomyelitis or gas within the soft tissues is found Dictated by: Ángel Venegas M.D. on 11/24/2016 at 20:13 Approved by: Ángel Venegas M.D. on 11/24/2016 at 20:15
[2016-11-24 20:38] VITALS: BP 143/87; PULSE 103; RESP 16; O2SAT 99
[2016-11-24] MEDS ORDERED: BACI28.4 TP (21:20)
[2016-11-24 21:32] VITALS: BP 142/87; PULSE 102; RESP 18; O2SAT 98
== END 2016-11-24 21:33 | disposition home or self-care (01) ==
LOC: SED 19:05
DX: S91.302A Unspecified open wound, left foot, initial encounter (principal); X58.XXXA Exposure to other specified factors, initial encounter; Y93.89 Activity, other specified; Y92.89 Other specified places as the place of occurrence of the external cause; Y99.8 Other external cause status; I11.9 Hypertensive heart disease without heart failure; E11.59 Type 2 diabetes mellitus with other circulatory complications; I25.10 Atherosclerotic heart disease of native coronary artery without angina pectoris; J44.9 Chronic obstructive pulmonary disease, unspecified; E03.9 Hypothyroidism, unspecified; F17.200 Nicotine dependence, unspecified, uncomplicated; Z89.412 Acquired absence of left great toe; Z79.4 Long term (current) use of insulin; Z79.82 Long term (current) use of aspirin; Z87.01 Personal history of pneumonia (recurrent); Z88.5 Allergy status to narcotic agent; Z88.8 Allergy status to other drugs, medicaments and biological substances; Z91.048 Other nonmedicinal substance allergy status

== ENCOUNTER 2016-12-04 19:43 | Emergency (ER) | payer OTHER ==
[~2016-12-04] VITALS: Ht 152.4 cm; Wt 59.1 kg
[~2016-12-04 19:43] MED LIST changes: +BACI28.4 TP
[2016-12-04 19:50] VITALS: BP 150/62; PULSE 109; RESP 20; O2SAT 99
[2016-12-04 21:17] LABS: BASOPHILS % (AUTO) 0.4 % (0-3); EOSINOPHILS % (AUTO) 3.6 % (0-5); MONOCYTES % (AUTO) 8.7 % (4-12); NEUTROPHILS % (AUTO) 57.2 % (40-74); Platelet Count 296 bil/L (150-400)
--- NOTE | 2016-12-04 21:55 | ED.REPORT ---
HPI-General Illness Date of Service Dec 04, 2016 ED Provider: Kimberley Hughes MD 56 y/o female with a hx of PVD, DM type 2, HTN and MRSA presents to the ED via EMS complaining of facial swelling, onset yesterday. The pt's nose started swelling initially, spreading to her gums and lips. The pt states "I had runny nose so I've been blowing it. It's been sore for a few days but yesterday and today there was some pus." Other sx include swollen glands, fever of 99, nausea , vomiting, difficulty eating due to the swelling, and facial pain which she describes as pressure. She denies facial trauma, myalgia, weakness, dizziness and tongue swelling. She states she has difficulty managing her diabetes. The last time she had similar sx, she was diagnosed with MRSA. She started Bactrim yesterday without any relief. The pt did not take her Metoprolol today. Nursing Notes Stated Complaint: RIGHT NECK SWELLING AND PAIN Chief Complaint: Head, Face, Neck Trauma Nursing Notes Reviewed: Yes Allergies: Coded Allergies: Adhesives (Verified Allergy, Severe, Rash, 08/07/16) Blisters, Paper tape okay cranberry (Verified Allergy, Severe, Anaphylaxis, 08/07/16) gabapentin (Verified Allergy, Severe, Neurologic symptoms, 08/07/16) Stroke like symptoms amitriptyline (Verified Allergy, Intermediate, hypertension, 08/07/16) morphine (Verified Adverse Reaction, Severe, Rash, mouth blisters, 08/07/16 ) Uncoded Allergies: DISSOLVABLE SUTUTE (Allergy, Unknown, UNKNOWN, 10/30/12) Scheduled Aspirin Chew (Aspirin Chew) 81 Mg Chew 81 MG PO DAILY Atorvastatin Calcium (Atorvastatin Calcium) 40 Mg Tablet 40 MG PO HS Bacitracin (Bacitracin Ointment) 28.4 Gm Oint...g. 1 APPLIC TP DAILY Cholecalciferol (Vitamin D3) (Vitamin D3) 50,000 Unit Capsule 50,000 UNIT PO WEEKLY MONDAYS Clindamycin (Clindamycin) 300 Mg Capsule 300 MG PO QID Duloxetine (Duloxetine) 60 Mg Capsule.dr 60 MG PO DAILY Insulin Glargine (Lantus U100 Insulin Vial) 100 Unit/Ml Vial 30 UNIT SUBQ BID Insulin Glargine (Lantus U100 Insulin Vial) 100 Unit/Ml Vial 20 UNIT SUBQ MORNING Insulin Glargine (Lantus U100 Insulin Vial) 100 Unit/Ml Vial 30 UNIT SUBQ HS Insulin Human Lispro (HumaLOG U100 Insulin Vial) 100 Unit/Ml Unit 1-8 UNIT SUBQ ACHS Check blood sugars before meals and at bedtime. Use correction factor only before meals. Blood Sugar Lispro Correction: <151, 0 units; 151-175, 1 unit; 176-200, 2 units; 201-225, 3 units; 226-250, 4 units; 251-275, 5 units; 276-300 , 6 units; 301-325, 7 units; 326-350, 8 units; 351-375, 9 units; 376-400, 10 units; >400, 12 units. Levothyroxine (Synthroid) 100 Mcg Tablet 100 MCG PO QAM Lisinopril (Lisinopril) 20 Mg Tablet 20 MG PO HS Metoprolol Tartrate (Metoprolol Tartrate) 25 Mg Tablet 25 MG PO DAILY Mupirocin (Mupirocin Ointment) 22 Gm Oint...g. 1 APPLIC TOP TID Pregabalin (Lyrica) 50 Mg Capsule 50 MG PO TID Sulfamethoxazole/Trimeth 800-160 mg (Bactrim DS) 1 Each Tablet 1 TABLET PO BID Trazodone (Trazodone) 100 Mg Tablet 100 MG PO HS Scheduled PRN Hydrocodone-Acetaminophen 7.5-325 mg (Hydrocodone-Acetaminophen 7.5-325 mg) 1 Each Tablet 1 TABLET PO Q8H PRN PRN For Pain oxyCODONE-Acetaminophen 5-325 mg (oxyCODONE-Acetaminophen 5-325 mg) 1 Each Tablet 1 TAB PO Q4H PRN PRN For Pain General Time Seen by MD: 21:54 Chief Complaint Other (facial swelling) Hx Obtained From: Patient Arrived By: Ambulance Sudden in Onset?: Yes Onset Occurred: Yesterday Symptom Duration: Since onset Location: : Mouth: Nose Quality: Painful Severity: Current: Moderate Severity: Maximum: Moderate Recent Healthcare: Recent doctor visit Similar Sx Previous: Yes Past Medical History Past Medical History Notes: chronic pain, on chronic opiate usage as of 03/2016 Past Medical History MRSA (Facial cellulitits, buttock abscess) Dysphagia Sinus problems Peripheral vascular disease Pneumonia (2007) Hiatal hernia Back injury S/P knee scope Hypothyroidism Reports: Asthma, COPD, Coronary artery disease, Diabetes mellitus, Hyperlipidemia, Hypertension Past Surgical History Heart cath 2001 Heart cath w/ stenting 11/2011 Bilat shoulder repair L ring finger repair R index finger repair Reports: , Carotid endarterectomy, Cataract surgery, Cholecystectomy, Hysterectomy Reports: Carpal tunnel Smoking History Current Every Day Smoker Social History Alcohol Use: "Social" Drug Use: Denies drug use Occupation lives with best friend, retired from [employer] 04/13/2016 Ambulatory Status Independent Review of Systems Reports: nose, gum and lips swelling Reports: facial pain due to swelling Denies: facial trauma Denies: tongue swelling Full Review of Systems Constitutional: Reports: Fever, Denies: Weakness - generalized GI: Reports: Nausea, Vomiting Musculoskeletal: Denies: Myalgia Neurologic: Denies: Dizziness Complete sys rev & neg: except as marked. Physical Exam Vital Signs Vital Signs Date Time Temp Pulse Resp B/P Pulse Ox O2 Delivery O2 Flow Rate FiO2 12/05/16 00:26 37.2 107 16 176/95 98 Room Air 12/04/16 19:50 37.4 109 20 150/62 99 Room Air Initial VS: Reviewed, Vital signs abnormal Head / Eyes: Atraumatic, Normocephalic Neck: Supple, Non-tender, Full range of motion Respiratory: Breath sounds normal, Clear to auscultation, No respiratory distress Extremities: Vascular intact, Neuro intact, No swelling, No tenderness Skin: Warm, Dry, No cyanosis Neurologic: Alert, Oriented, Nonfocal General/Constitutional: Awake, Alert, No acute distress, Cooperative ENT: Atraumatic, Mucous membranes moist Swelling to the distal part of her nose and nares medially.Redness to the tip of nose. Upper lip swelling. Cardiovascular: Regular rhythm, Heart sounds NL, No gallop, No murmurs Heart Rate / Rhythm: Positive: Tachycardia Ankle / Foot: Atraumatic, Full range of motion, Neurologic intact, Vascular intact Ulcer on great toe of left foot. It is clean without surrounding erythem and discharge. Interpretation & Diagnostics Lab Results Interpretation Result Diagram: 12/04/16210912/04/162109 Test 12/04/16 21:10 12/04/16 23:13 12/05/16 00:35 White Blood Count 9.1th/mm3 (3.8-10.1) Red Blood Count 4.38mil/mm3 (3.90-5.20) Hemoglobin 12.7g/dL (12.0-15.6) Hematocrit 36.8% (35.0-46.0) Mean Corpuscular Volume 84.0fL (81-100) Mean Corpuscular Hemoglobin 29.0pg (27.0-35.0) Mean Corpuscular Hemoglobin Concent 34.5% (32.0-37.0) Red Cell Distribution Width 12.6% (12.3-15.4) Platelet Count 296bil/L (150-400) Neutrophils (%) (Auto) 57.2% (40-74) Lymphocytes (%) (Auto) 29.9% (14-46) Monocytes (%) (Auto) 8.7% (4-12) Eosinophils (%) (Auto) 3.6% (0-5) Basophils (%) (Auto) 0.4% (0-3) Sodium Level 133mEq/L (134-144) Potassium Level 4.8mEq/L (3.5-5.2) Chloride Level 97mEq/L (97-108) Carbon Dioxide Level 21mmol/L (18-29) Blood Urea Nitrogen 12mg/dL (6-24) Creatinine 0.91mg/dL (0.57-1.00) Estimat Glomerular Filtration Rate 91mL/min (>59) Glucose Level 287mg/dL (60-99) Calcium Level 9.3mg/dL (8.5-10.1) Total Bilirubin 0.2mg/dL (0.0-1.2) Aspartate Amino Transf (AST/SGOT) 16U/L (0-50) Alanine Aminotransferase (ALT/SGPT) 14U/L (0-32) Alkaline Phosphatase 126U/L (25-150) Total Protein 7.1g/dL (6.4-8.4) Albumin 3.7g/dL (3.4-5.0) Hold [place] Top Tube Received (Received) Hold Urine Received (Received) Lactic Acid Level 1.0mmol/L (0.4-2.0) Re-Eval/Medical Decision Med Decision/Clinical Course The patient does have some obvious signs of infection to her face. In looking at her cultures from July she does have MRSA that is susceptible to Bactrim. The patient started antibiotic yesterday so it has not had a lot of time to work. Patient does not have any signs of systemic illness. Initially I was concerned that her tachycardia may be related to sepsis however she did not take her metoprolol today which could explain her tachycardia. It is also possible that the antibiotic is not working well due to the fact that she continues to smoke, I explained this to her. She can continue with outpatient treatment, if she gets any worse she will need to return to the emergency department. Time of Eval: 00:45 Re-Evaluation/Progress Note: Rechecked pt. She denies taking her Metoprolol dose today. Discussed lab results, imaging results, diagnosis and plan to discharge. The pt understands and agrees with the plan. All questions answered. Counseled Regarding: Diagnosis, Lab results, Need for follow-up, When/why to return to ED Discharge & Departure Primary Impression: Facial cellulitis Disposition: Home Discharge Condition All VS Reviewed: Yes Additional Instructions: Thank you for entrusting us with your care today. Your lab results are reassuring. Continue taking Bactrim and using Mupirocen. It is very important you stop smoking otherwise the antibiotic will not reach the infected area. Follow up with your primary care provider for further evaluation. Return to the emergency department in case of new or worsening symptoms. Referrals: Juan M Hull MD (PCP) Scribe Attestation Portions of this note were transcribed by Hamlet Sheridan. I, , personally performed the history, physical exam and medical decision-making;I reviewed and confirmed the accuracy of the information in the transcribed note. Signed by Destiny Little. 12/05/16 01:42 copies to: Juan M Hull MD, Jena M MD Dec 04, 2016 21:55 Hamlet Sheridan Dec 04, 2016 23:32
[2016-12-04] MEDS ORDERED: Trimethoprim-Sulfa 160 mg-800 mg Tablet PO ONE (22:30)
[2016-12-04] MEDS ORDERED: 0.9% Sodium Chloride 1,000 ML IV ONE (22:30)
[2016-12-04] MEDS ORDERED: HYDROmorphone 0.5 mg/0.5 mL iSecure Syringe IVPUSH ONE (22:50)
[2016-12-05 00:26] VITALS: BP 176/95; PULSE 107; RESP 16; O2SAT 98
[2016-12-05] MEDS ORDERED: MeTOProlol XL 25 mg ER24 Tablet PO ONE (00:50)
[2016-12-05] MEDS ORDERED: SULF1TAB7 PO (01:35)
[2016-12-05] MEDS ORDERED: MUPI22OI2 TOP (01:59)
[2016-12-05] MEDS ORDERED: HYDROmorphone 0.5 mg/0.5 mL iSecure Syringe IVPUSH ONE (02:00)
[2016-12-05 02:12] VITALS: BP 143/75; PULSE 107; RESP 18; O2SAT 100
== END 2016-12-05 02:12 | disposition home or self-care (01) ==
LOC: SED 19:43 → EDBD 19:43 → SED 12-05 02:12
DX: L03.211 Cellulitis of face (principal); I11.9 Hypertensive heart disease without heart failure; I25.10 Atherosclerotic heart disease of native coronary artery without angina pectoris; E78.5 Hyperlipidemia, unspecified; E11.59 Type 2 diabetes mellitus with other circulatory complications; J44.9 Chronic obstructive pulmonary disease, unspecified; E03.9 Hypothyroidism, unspecified; F17.200 Nicotine dependence, unspecified, uncomplicated; Z79.82 Long term (current) use of aspirin; Z79.4 Long term (current) use of insulin; Z87.01 Personal history of pneumonia (recurrent); Z88.5 Allergy status to narcotic agent; Z91.018 Allergy to other foods; Z88.8 Allergy status to other drugs, medicaments and biological substances; Z91.048 Other nonmedicinal substance allergy status
CPT/HCPCS: 36415; 80053; 83605; 85025; 96361; 96374; 96376; 99284; J1170; J7030

== ENCOUNTER 2017-02-06 22:27 | Emergency (ER) | payer OTHER ==
[~2017-02-06] VITALS: Ht 154.9 cm; Wt 60.5 kg
[~2017-02-06 22:27] MED LIST changes: +MUPI22OI2 TOP; +SULF1TAB7 PO
[2017-02-06 22:55] VITALS: BP 164/86; PULSE 107; RESP 20; O2SAT 99
--- NOTE | 2017-02-06 23:44 | ED.REPORT ---
HPI-General Illness Date of Service Feb 06, 2017 ED Provider: Pedro Crockett MD Pt is a 56 y/o female with a history of DM, CAD, previous MRSA, and hypertension who presents to the ED via EMS c/o a black left big toe onset 6 days ago. She has been seeing electromedical equipment repairer, Dr. Roy for blisters on her big toe and was placed on Bactrim for 6 days with no improvement. She states that she had a healing blister on the bottom of her big toe that was healing, and when the weather got hotter, she developed a new blister on the side of her foot that turned black. Her son called EMS for left foot pain that radiates up her leg. She is non-compliant with DM management and BP medications. Nursing Notes Stated Complaint: LEG PAIN Chief Complaint: General Complaint Nursing Notes Reviewed: Yes Allergies: Coded Allergies: Adhesives (Verified Allergy, Severe, Rash, 08/07/16) Blisters, Paper tape okay cranberry (Verified Allergy, Severe, Anaphylaxis, 08/07/16) gabapentin (Verified Allergy, Severe, Neurologic symptoms, 08/07/16) Stroke like symptoms amitriptyline (Verified Allergy, Intermediate, hypertension, 08/07/16) morphine (Verified Adverse Reaction, Severe, Rash, mouth blisters, 08/07/16 ) Uncoded Allergies: DISSOLVABLE SUTUTE (Allergy, Unknown, UNKNOWN, 10/30/12) Scheduled Aspirin Chew (Aspirin Chew) 81 Mg Chew 81 MG PO DAILY Atorvastatin Calcium (Atorvastatin Calcium) 40 Mg Tablet 40 MG PO HS Bacitracin (Bacitracin Ointment) 28.4 Gm Oint...g. 1 APPLIC TP DAILY Cholecalciferol (Vitamin D3) (Vitamin D3) 50,000 Unit Capsule 50,000 UNIT PO WEEKLY MONDAYS Clindamycin (Clindamycin) 300 Mg Capsule 300 MG PO QID Duloxetine (Duloxetine) 60 Mg Capsule.dr 60 MG PO DAILY Insulin Glargine (Lantus U100 Insulin Vial) 100 Unit/Ml Vial 30 UNIT SUBQ BID Insulin Glargine (Lantus U100 Insulin Vial) 100 Unit/Ml Vial 20 UNIT SUBQ MORNING Insulin Glargine (Lantus U100 Insulin Vial) 100 Unit/Ml Vial 30 UNIT SUBQ HS Insulin Human Lispro (HumaLOG U100 Insulin Vial) 100 Unit/Ml Unit 1-8 UNIT SUBQ ACHS Check blood sugars before meals and at bedtime. Use correction factor only before meals. Blood Sugar Lispro Correction: <151, 0 units; 151-175, 1 unit; 176-200, 2 units; 201-225, 3 units; 226-250, 4 units; 251-275, 5 units; 276-300 , 6 units; 301-325, 7 units; 326-350, 8 units; 351-375, 9 units; 376-400, 10 units; >400, 12 units. Levothyroxine (Synthroid) 100 Mcg Tablet 100 MCG PO QAM Linezolid (Linezolid) 600 Mg Tablet 600 MG PO BID Lisinopril (Lisinopril) 20 Mg Tablet 20 MG PO HS Metoprolol Tartrate (Metoprolol Tartrate) 25 Mg Tablet 25 MG PO DAILY Mupirocin (Mupirocin Ointment) 22 Gm Oint...g. 1 APPLIC TOP TID Pregabalin (Lyrica) 50 Mg Capsule 50 MG PO TID Sulfamethoxazole/Trimeth 800-160 mg (Bactrim DS) 1 Each Tablet 1 TABLET PO BID Trazodone (Trazodone) 100 Mg Tablet 100 MG PO HS Scheduled PRN Hydrocodone-Acetaminophen 7.5-325 mg (Hydrocodone-Acetaminophen 7.5-325 mg) 1 Each Tablet 1 TABLET PO Q8H PRN PRN For Pain oxyCODONE-Acetaminophen 5-325 mg (oxyCODONE-Acetaminophen 5-325 mg) 1 Each Tablet 1 TAB PO Q4H PRN PRN For Pain General Time Seen by MD: 23:43 Chief Complaint Other (Black left big toe ) Hx Obtained From: Patient Arrived By: Walk-in Sudden in Onset?: No Onset Occurred: 6 days ago Symptom Duration: Constant Quality: Painful Severity: Current: Moderate Severity: Maximum: Moderate Recent Healthcare: Recent doctor visit Similar Sx Previous: Yes Past Medical History Past Medical History Notes: chronic pain, on chronic opiate usage as of 03/2016 Past Medical History MRSA (Facial cellulitits, buttock abscess) Dysphagia Sinus problems Peripheral vascular disease Pneumonia (2007) Hiatal hernia Back injury S/P knee scope Hypothyroidism Reports: Asthma, COPD, Coronary artery disease, Diabetes mellitus, Hyperlipidemia, Hypertension Past Surgical History Heart cath 2001 Heart cath w/ stenting 11/2011 Bilat shoulder repair L ring finger repair R index finger repair Reports: , Carotid endarterectomy, Cataract surgery, Cholecystectomy, Hysterectomy Reports: Carpal tunnel Smoking History Current Every Day Smoker Social History Alcohol Use: "Social" Drug Use: Denies drug use Occupation lives with best friend, retired from [employer] 04/13/2016 Ambulatory Status Independent Review of Systems Black left big toe pain Left leg pain Full Review of Systems Constitutional: Denies: Chills, Fever Respiratory: Denies: Non-productive cough, Prod cough, clear, Shortness of breath Cardiovascular: Denies: Chest pain Skin: Denies Rash Neurologic: Denies: Focal weakness Psychiatric: Denies: Change mental status Complete sys rev & neg: except as marked. Physical Exam Vital Signs Vital Signs Date Time Temp Pulse Resp B/P Pulse Ox O2 Delivery O2 Flow Rate FiO2 02/06/17 22:55 37.1 107 20 164/86 99 Room Air Initial VS: Reviewed Head / Eyes: Atraumatic, Normocephalic Neck: Supple, Full range of motion Abdomen / GI: Soft, Non-tender Neurologic: Alert, Oriented, Nonfocal Psychiatric: Mood/affect normal, Behavior normal, Normal thought content General/Constitutional: Awake, Alert Foot: 5th toe resected on L foot Ulcer on great toe on plantar surface, 2 cm circular area with middle of area punched out Erythema on dorsum of great toe Either bruising or necrosis on medial side of great toe No proximal lymphangitic streaking Re-Eval/Medical Decision Med Decision/Clinical Course 56-year-old diabetic presents with blackening of an area on her medial great toe and erythema and cellulitis of the toe with a prior ulcer on the plantar surface. She was initially willing to be admitted and begun with antibiotics, but ultimately refused. Initiation of IV antibiotics was offered with plan for a PICC line and discharge this morning. She initially agreed to that and then ultimately refused and was discharged. Provided with linezolid orally as the only potential alternative. Discharged AGAINST MEDICAL ADVICE and plans follow up with podiatry this morning. Source of Hx: Old records Time of Eval: 23:24 Re-Evaluation/Progress Note: Discussed need for admission. Pt understands and agrees with plan. All questions addressed. Time of Eval: 00:04 Re-Evaluation/Progress Note: Pt now reports that she doesn't want to be admitted. Will leave AMA. Counseled Regarding: Diagnosis, Lab results, Need for admission Discharge & Departure Primary Impression: Wound, open, foot Encounter type: initial encounter Laterality: left Qualified Code: S91.302A - Unspecified open wound, left foot, initial encounter Additional Impressions: Diabetic ulcer of left great toe Cellulitis Site of cellulitis: unspecified site Qualified Code: L03.90 - Cellulitis, unspecified Noncompliance Disposition: AGAINST MEDICAL ADVICE Discharge Condition All VS Reviewed: Yes Condition: Stable Patient Instructions: Diabetic Foot Ulcers (DC) Additional Instructions: Begin linezolid one tablet twice daily. Follow-up with Dr. Roy tomorrow as planned. They can arrange a PICC line and potentially outpatient IV therapy. You understand that you risk losing the toe, potentially the entire foot and lower leg, and potentially sepsis and by insisting on going home. Return if this worsens and you are willing to be admitted. Referrals: Juan M Hull MD (PCP) Scribe Attestation Portions of this note were transcribed by Montse Meza. I, Dr. Crockett, personally performed the history, physical exam and medical decision-making; I reviewed and confirmed the accuracy of the information in the transcribed note. copies to: Juan M Hull MD, Christopher W MD Feb 06, 2017 23:44 Montse Meza Feb 06, 2017 23:53
[2017-02-07] MEDS ORDERED: 0.9% Sodium Chloride 1,000 ML IV ONE (00:17)
[2017-02-07] MEDS ORDERED: Ertapenem Inj 1,000 MG in 0.9% Sodium Chloride 50 ML IV ONE (00:20)
[2017-02-07] MEDS ORDERED: Vancomycin Dose per Pharmacist XX ONE (00:20)
[2017-02-07] MEDS ORDERED: Vancomycin Inj 1,250 MG in 0.9% Sodium Chloride 250 ML IV ONE (00:35)
[2017-02-07] MEDS ORDERED: LINE600T7 PO (01:45)
[2017-02-07] MEDS ORDERED: PREG100C PO (19:42)
[2017-02-07] MEDS ORDERED: LISI-567 PO (19:46)
--- NOTE | 2017-02-07 20:07 | DRSVH ---
PROCEDURE: X-RAY CHEST ONE VIEW, PORTABLE ([id number]) INDICATIONS: diabetic foot TECHNIQUE: One view of the chest was acquired. COMPARISON: [facility], , CHEST 1VW (PORTABLE), 07/18/2014, 5:50. FINDINGS: Surgical changes and devices: None. Lungs and pleura: No pleural effusions or pneumothorax. Lungs are clear. Mediastinum: Mediastinal contours appear normal. Heart size is normal. Bones and chest wall: No suspicious bony lesions. Overlying soft tissues appear unremarkable. IMPRESSION: No acute cardiopulmonary disease. Dictated by: Humble NUNES Interpreted: Kari Oates MD on 02/07/2017 at 9:56 Approved by: Kari Oates M.D. on 02/07/2017 at 20:05
[2017-02-14] MEDS ORDERED: HYDR2TAB28 PO (17:27)
== END 2017-02-07 02:30 | disposition left against medical advice (07) ==
LOC: SED 22:27 → EDUNIT# 22:27 → EDBD 22:27 → SED 02-07 02:30
DX: S91.302A Unspecified open wound, left foot, initial encounter (principal); X58.XXXA Exposure to other specified factors, initial encounter; Y93.89 Activity, other specified; Y92.89 Other specified places as the place of occurrence of the external cause; Y99.8 Other external cause status; E11.621 Type 2 diabetes mellitus with foot ulcer; L97.429 Non-pressure chronic ulcer of left heel and midfoot with unspecified severity; L03.032 Cellulitis of left toe; I11.9 Hypertensive heart disease without heart failure; E11.59 Type 2 diabetes mellitus with other circulatory complications; I25.10 Atherosclerotic heart disease of native coronary artery without angina pectoris; J44.9 Chronic obstructive pulmonary disease, unspecified; E78.5 Hyperlipidemia, unspecified; E03.9 Hypothyroidism, unspecified; F17.200 Nicotine dependence, unspecified, uncomplicated; Z87.01 Personal history of pneumonia (recurrent); Z86.14 Personal history of Methicillin resistant Staphylococcus aureus infection; Z91.19 Patient's noncompliance with other medical treatment and regimen; Z95.5 Presence of coronary angioplasty implant and graft; Z90.710 Acquired absence of both cervix and uterus; Z90.49 Acquired absence of other specified parts of digestive tract; Z98.890 Other specified postprocedural states; Z79.82 Long term (current) use of aspirin; Z79.4 Long term (current) use of insulin; Z53.29 Procedure and treatment not carried out because of patient's decision for other reasons; Z88.5 Allergy status to narcotic agent; Z88.8 Allergy status to other drugs, medicaments and biological substances; Z91.018 Allergy to other foods; Z91.048 Other nonmedicinal substance allergy status

== ENCOUNTER 2017-02-07 17:28 | Inpatient (IN) | payer OTHER ==
[~2017-02-07] VITALS: Ht 154.9 cm; Wt 60.0 kg
[~2017-02-07 17:28] MED LIST changes: +LINE600T7 PO
[2017-02-07 17:40] VITALS: BP 190/113; PULSE 109; RESP 22; O2SAT 97
--- NOTE | 2017-02-07 18:52 | ED.REPORT ---
HPI-Extremity Problem Lower Date of Service Feb 07, 2017 ED Provider: Mikael Perera MD Patient is a 56 year old female with a history of diabetes, MRSA, CAD, hypertension and peripheral vascular disease with diabetic foot ulcers who presents to the ED complaining of increased pain/swelling/redness in her left great toe. Associated symptoms include spreading redness and left calf swelling. The patient reports that she saw her pulmonologist intensivist, Dr. Roy today and is supposed to see him for possible surgery to save her toe. She states that Dr. Roy recommended the patient come to the ED for imaging and DVT rule out. Patient has had an ulcer on her foot that has continued to get worse over the last 7 days. She is currently taking Bactrim for the infection. Nursing Notes Stated Complaint: LEFT FOOT/TOE Chief Complaint: Extremity Trauma Nursing Notes Reviewed: Yes Allergies: Coded Allergies: Adhesives (Verified Allergy, Severe, Rash, 08/07/16) Blisters, Paper tape okay cranberry (Verified Allergy, Severe, Anaphylaxis, 08/07/16) gabapentin (Verified Allergy, Severe, Neurologic symptoms, 08/07/16) Stroke like symptoms amitriptyline (Verified Allergy, Intermediate, hypertension, 08/07/16) morphine (Verified Adverse Reaction, Severe, Rash, mouth blisters, 08/07/16 ) Uncoded Allergies: DISSOLVABLE SUTUTE (Allergy, Unknown, UNKNOWN, 10/30/12) Scheduled Aspirin Chew (Aspirin Chew) 81 Mg Chew 81 MG PO DAILY Atorvastatin Calcium (Atorvastatin Calcium) 40 Mg Tablet 40 MG PO HS Insulin Glargine (Lantus U100 Insulin Vial) 100 Unit/Ml Vial 20 UNIT SUBQ MORNING Insulin Glargine (Lantus U100 Insulin Vial) 100 Unit/Ml Vial 30 UNIT SUBQ HS Insulin Human Lispro (HumaLOG U100 Insulin Vial) 100 Unit/Ml Unit 1-8 UNIT SUBQ ACHS Check blood sugars before meals and at bedtime. Use correction factor only before meals. Blood Sugar Lispro Correction: <151, 0 units; 151-175, 1 unit; 176-200, 2 units; 201-225, 3 units; 226-250, 4 units; 251-275, 5 units; 276-300 , 6 units; 301-325, 7 units; 326-350, 8 units; 351-375, 9 units; 376-400, 10 units; >400, 12 units. Levothyroxine (Synthroid) 100 Mcg Tablet 100 MCG PO QAM Lisinopril (Lisinopril) 20 Mg Tablet 20 MG PO HS Lisinopril (Lisinopril) 20 Mg Tablet 20 MG PO BID Pregabalin (Lyrica) 100 Mg Capsule 100 MG PO BID Sulfamethoxazole/Trimeth 800-160 mg (Bactrim DS) 1 Each Tablet 1 TABLET PO BID Trazodone (Trazodone) 100 Mg Tablet 100 MG PO HS Scheduled PRN Hydrocodone-Acetaminophen 7.5-325 mg (Hydrocodone-Acetaminophen 7.5-325 mg) 1 Each Tablet 1 TABLET PO Q8H PRN PRN For Pain General Time Seen by MD: 18:51 Chief Complaint Toe injury left 1 Hx Obtained From: Patient Arrived By: Walk-in Onset Occurred: 1 week ago Symptom Duration: Since onset Location: : Toe left 1 Quality: Painful Severity: Current: Moderate Exacerbated by: Range of motion, Movement Recent Healthcare: Recent doctor visit, Recent hospitalization Similar Sx Previous: Yes Past Medical History Past Medical History Notes: chronic pain, on chronic opiate usage as of 03/2016 Past Medical History MRSA (Facial cellulitits, buttock abscess) Dysphagia Sinus problems Peripheral vascular disease Pneumonia (2007) Hiatal hernia Back injury S/P knee scope Hypothyroidism Reports: Asthma, COPD, Coronary artery disease, Diabetes mellitus, Hyperlipidemia, Hypertension Past Surgical History Heart cath 2001 Heart cath w/ stenting 11/2011 Bilat shoulder repair L ring finger repair R index finger repair Reports: , Carotid endarterectomy, Cataract surgery, Cholecystectomy, Hysterectomy Reports: Carpal tunnel Smoking History Current Every Day Smoker Social History Alcohol Use: "Social" Drug Use: Denies drug use Occupation lives with best friend, retired from [employer] 04/13/2016 Ambulatory Status Independent Review of Systems Musculoskeletal: Reports: Extremity pain Complete sys rev & neg: except as marked. Physical Exam Initial Vital Signs Vital Signs (First) Date Time Temp Pulse Resp B/P Pulse Ox O2 Delivery O2 Flow Rate FiO2 02/07/17 17:40 36.8 109 22 190/113 97 Room Air Initial VS: Reviewed Lower Extremity / Pelvis / MS: Atraumatic mild swelling of the left calf tender left calf FOOT: 1cm x 1cm ulcer about the base of the left greater toe granulation tissue at the base erythema and abscess about the lateral aspect of the left great big toe erythema extending half way up the mid foot packing present in the lateral aspect of the left great toe skin well profused General/Constitutional: Awake, Alert Respiratory / Chest: Atraumatic, Breath sounds NL, Breath sounds = bilat, No respiratory distress Cardiovascular: Heart rate NL, Regular rhythm, Heart sounds NL Skin: No rash, Warm, Dry Neurologic: Oriented X3, Speech NL Head / Eyes: Atraumatic, Normocephalic, PERRL, EOMI Abdomen: Atraumatic, Soft, Non-tender, No distention Interpretation & Diagnostics Interpretation & Diagnostics: US LOWER EXTREMITY: IMPRESSION: No evidence of deep vein thrombosis involving the left lower extremity. Dictated by: Priscilla Abreu MD, PhD on 02/07/2017 at 20:21 Approved by: Priscilla Abreu MD, PhD on 02/07/2017 at 20:21 Lab Results Interpretation Result Diagram: 02/07/17201202/07/17 2013 Test 02/07/17 20:13 02/07/17 20:14 White Blood Count 10.8th/mm3 (3.8-10.1) Red Blood Count 4.29mil/mm3 (3.90-5.20) Hemoglobin 12.5g/dL (12.0-15.6) Hematocrit 36.5% (35.0-46.0) Mean Corpuscular Volume 85.1fL (81-100) Mean Corpuscular Hemoglobin 29.1pg (27.0-35.0) Mean Corpuscular Hemoglobin Concent 34.2% (32.0-37.0) Red Cell Distribution Width 12.6% (12.3-15.4) Platelet Count 321bil/L (150-400) Neutrophils (%) (Auto) 61.7% (40-74) Lymphocytes (%) (Auto) 25.6% (14-46) Monocytes (%) (Auto) 7.9% (4-12) Eosinophils (%) (Auto) 3.3% (0-5) Basophils (%) (Auto) 0.5% (0-3) Prothrombin Time 9.3sec (8.1-12.5) Prothromb Time International Ratio 0.87ratio Sodium Level 132mEq/L (134-144) Potassium Level 4.1mEq/L (3.5-5.2) Chloride Level 93mEq/L (97-108) Carbon Dioxide Level 23mmol/L (18-29) Blood Urea Nitrogen 19mg/dL (6-24) Creatinine 1.05mg/dL (0.57-1.00) Estimat Glomerular Filtration Rate 77mL/min (>59) Glucose Level 460mg/dL (60-99) Calcium Level 9.1mg/dL (8.5-10.1) Total Bilirubin 0.2mg/dL (0.0-1.2) Aspartate Amino Transf (AST/SGOT) 10U/L (0-50) Alanine Aminotransferase (ALT/SGPT) 12U/L (0-32) Alkaline Phosphatase 160U/L (25-150) Total Protein 7.1g/dL (6.4-8.4) Albumin 3.5g/dL (3.4-5.0) Procalcitonin 0.05ng/mL (0.00-0.08) Hold [place] Top Tube Received (Received) ECG Interpretation ECG Interpretation: sinus tachycardia, rate 101 normal axis normal interval anteroseptal Q waves present borderline ST elevation in V1 and V2, unchanged from prior EKG no acute changes from previous EKG on 07/01/16, remains tachycardic Interpreted by: ED physician X-Ray Interpretation Xray Interpretation: IMPRESSION: No rey evidence of osteomyelitis. Plain film radiographs can be insensitive to osteomyelitis during the initial 15 days of the disease process. If there is clinical concern for osteomyelitis, then three-phase nuclear medicine bone scan is warranted. Dictated by: Priscilla Abreu MD, PhD on 02/07/2017 at 19:48 Approved by: Priscilla Abreu MD, PhD on 02/07/2017 at 19:50 X-Ray Ordered: Foot left Interpretation / Wet Read by: Interpret - Radiologist Re-Eval/Medical Decision Med Decision/Clinical Course Patient is a 56 year old female with a history of diabetes, MRSA, CAD, hypertension and peripheral vascular disease with diabetic foot ulcers who presents to the ED after being sent here by her pulmonologist intensivist Dr. Torres due to concern for left calf DVT and need for IV antibiotics/imaging and likely operative intervention. Here in the emergency department the patient is afebrile with stable vital signs and examination as above. The patient was given hydromorphone for pain, IV fluids and Zofran for nausea. Labs: CBC unremarkable, CMP notable for a sodium of 132, BUN of 19, Creatinine of 1.05 and a glucose of 460 Coag studies within normal limits Ultrasound of the left calf was negative for DVT Foot X-ray demonstrated no rey evidence of osteomyelitis. Plain film radiographs can be insensitive to osteomyelitis during the initial 15 days of the disease process. If there is clinical concern for osteomyelitis, then three- phase nuclear medicine bone scan is warranted. EKG demonstrated sinus tachycardia, 101bpm with normal axis, normal interval, anteroseptal Q waves present, borderline ST elevation in V1 and V2, unchanged from prior EKG no acute changes from previous EKG on 07/01/16 patient remains tachycardic At this time my suspicion remains high for possible osteomyelitis though she obviously has cellulitis which is spreading proximally as well as significant soft tissue infection. Patient was discussed with her pulmonologist intensivist and started on IV ceftriaxone and vancomycin per their recommendation. Blood cultures were obtained prior to initiating antibiotics. They have requested that the patient be admitted to the hospitalist service and made NPO at midnight. They will likely operate on her foot tomorrow. Patient remained stable and in no apparent distress and was accepted to the hospitalist service for further management and consultation with podiatry. Re-Evaluation/Progress : Time of Eval: 19:04 Re-Evaluation/Progress Note: Discussed results and plan for admit. Patient understands and agrees to plan. All questions were addressed. Consultation #1: Referral / Consult Name: Mario Roy DPM Consulted With: On-call physician (podiatry) Call Returned at: 19:24 Mental Tester: Will see patient Note: Consult with Dr. Roy, who requests that the patient be admitted to the hospitalist, started on Ceftriaxone, Vanco and NPO at midnight. He will see the patient in the morning with plan for surgery. Consultation #2: Referral / Consult Name: Shawn Cantor MD Consulted With: Hospitalist Call Returned at: 19:54 Mental Tester: Agrees with eval, Agrees with plan, Accepts admit Counseled Regarding: Diagnosis, Lab results, Need for admission Discharge & Departure Impression: Primary Impression: Diabetic foot ulcer Diabetic foot ulcer location: toe Diabetes mellitus type: type 2 Laterality : left Non-pressure ulcer stage: unspecified non-pressure ulcer stage Qualified Code: E11.621 - Type 2 diabetes mellitus with foot ulcer Additional Impressions: Cellulitis of left foot Type II diabetes mellitus Diabetes mellitus complication status: with unspecified complications Diabetes mellitus [employer] insulin use: with custodial use Qualified Code: E11.8 - Type 2 diabetes mellitus with unspecified complications Toe pain, left Disposition: ADMITTED TO HOSPITAL Discharge Condition All VS Reviewed: Yes Condition: Stable Referrals: Juan M Hull MD (PCP) Destiny Attestation Portions of this note were transcribed by Leigha Castillo. I, Dr. Perera personally performed the history, physical exam and medical decision-making; I reviewed and confirmed the accuracy of the information in the transcribed note. Signed by: Destiny Mireles, 02/07/17 copies to: Juan M Hull MD, Beck O MD Feb 07, 2017 18:52 Kaykay Castillo Feb 07, 2017 18:58
[2017-02-07] MEDS ORDERED: 0.9% Sodium Chloride 1,000 ML IV ONE (19:18)
[2017-02-07] MEDS ORDERED: HYDROmorphone 1 mg/mL Inj IVPUSH ONE (19:20)
[2017-02-07] MEDS ORDERED: Ondansetron 2 mg/mL 2 mL Inj IVPUSH ONE (19:20)
[2017-02-07] MEDS ORDERED: Alum-Mag Hydrox-Simeth 30 mL Suspension PO PRN ×2 (19:25→21:10)
[2017-02-07] MEDS ORDERED: Vancomycin Dose per Pharmacist XX ONE (19:25)
[2017-02-07] MEDS ORDERED: Ondansetron 2 mg/mL 2 mL Inj IVPUSH PRN (19:25)
[2017-02-07] MEDS ORDERED: cefTRIAXone Inj 2,000 MG in Dextrose 5% 50 ML IV STA (19:25)
[2017-02-07] MEDS ORDERED: HYDROmorphone 0.5 mg/0.5 mL iSecure Syringe IVPUSH ONE (19:25)
[2017-02-07] MEDS ORDERED: Vancomycin Inj 1,250 MG in 0.9% Sodium Chloride 250 ML IV ONE (19:40)
[2017-02-07] MEDS ORDERED: PREG100C PO (19:42)
[2017-02-07] MEDS ORDERED: LISI-567 PO (19:46)
--- NOTE | 2017-02-07 19:51 | DRSVH ---
PROCEDURE: X-RAY LEFT FOOT COMPLETE, MINIMUM THREE VIEWS ([id number]) INDICATIONS: left great toe diabetic ulcers. TECHNIQUE: 3 views of the foot were acquired. COMPARISON: None. FINDINGS: Bones: No fractures or dislocations. Patient is status post amputation of the left fifth toe the lev el of the mid fifth metatarsal. No erosive changes identified. No periosteal reaction identified. No suspicious bony lesions. Calcaneal bone spurs. Soft tissues: No tibiotalar joint effusion. Achilles tendon appears normal. Soft tissue swelling no danielle in the first toe. IMPRESSION: No rey evidence of osteomyelitis. Plain film radiographs can be insensitive to osteomy elitis during the initial 15 days of the disease process. If there is clinical concern for osteomyeli tis, then three-phase nuclear medicine bone scan is warranted. Dictated by: Priscilla Abreu MD, PhD on 02/07/2017 at 19:48 Approved by: Priscilla Abreu MD, PhD on 02/07/2017 at 19:50
[2017-02-07 20:17] LABS: BASOPHILS % (AUTO) 0.5 % (0-3)
[2017-02-07 20:19] LABS: EOSINOPHILS % (AUTO) 3.3 % (0-5); MONOCYTES % (AUTO) 7.9 % (4-12); Mean Corpuscular Hemoglobin 29.1 pg (27.0-35.0); Mean Corpuscular Volume 85.1 fL (81-100); NEUTROPHILS % (AUTO) 61.7 % (40-74); Platelet Count 321 bil/L (150-400)
--- NOTE | 2017-02-07 20:23 | DRSVH ---
PROCEDURE: US VEINOUS LEG DUPLEX UNILATERAL, LEFT INDICATIONS: red/swollen TECHNIQUE: Real-time imaging, as well as color and pulse Doppler interrogation, were performed of the lower extr emity deep veins from the inguinal ligament to the popliteal fossa. COMPARISON: None. FINDINGS: The deep veins are normally compressible, and free of intraluminal thrombus. Color and pu lse Doppler demonstrate normal phasic intraluminal flow. There is normal augmentation response to di stal compression maneuver. IMPRESSION: No evidence of deep vein thrombosis involving the left lower extremity. Dictated by: Priscilla Abreu MD, PhD on 02/07/2017 at 20:21 Approved by: Priscilla Abreu MD, PhD on 02/07/2017 at 20:21
[2017-02-07 20:35] LABS: INR 0.87 ratio
[2017-02-07] MEDS ORDERED: 0.9% Sodium Chloride 1,000 ML IV SCH ×2 (21:08)
[2017-02-07] MEDS ORDERED: Vancomycin Dose per Pharmacist XX SCH (21:10)
[2017-02-07] MEDS ORDERED: Polyethylene Glycol (PEG) 17 Gm Powder PO PRN (21:10)
[2017-02-07] MEDS ORDERED: Insulin Human REGular Inj 100 UNIT in 0.9% Sodium Chloride-Pha MIX 100 ML IV SCH (21:12)
[2017-02-07] MEDS ORDERED: Labetalol 5 mg/mL 20 mL Inj IVPUSH ONE (21:35)
--- NOTE | 2017-02-07 21:36 | PCM.HPMED ---
Subjective Date of Service Feb 07, 2017 Primary Provider: Admitting Physician: Primary Care Physician: Juan M Hull MD Attending Physician: Chief Complaint: Left leg pain and swelling History of Present Illness: 56-year-old female with history of CAD with stent 4, diabetes with neuropathy, and [id number] history of smoking who presents to emergency department from Dr. Roy's office due to persistent diabetic ulceration on the left great toe with reported associated fever and chills for 24 hours, as well as left calf pain that started today. Patient states that this wound started couple of weeks ago and she has been seeking care with podiatry. When the patient went to her appointment today the wound was assessed and she was sent to the ED to be admitted for IV antibiotics prior to planned surgical debridement tomorrow. Patient states that the left Pain started somewhat abruptly over the last day or so and extends from the knee down to her ankle. She denies additional erythema, or edema. The patient denies chest pain, shortness breath, headache, dysuria, or changes in bowel habits. Patient had tried Bactrim as an outpatient which has not seemed to have been effective. Emergency department venous ultrasound was negative for DVT, and a first x-ray was negative for rey evidence of osteomyelitis. Patient a very mild leukocytosis of 10.8, post found to be hyperglycemic at 460 and creatinine 1.05. Review of Systems: Complete review of systems performed; pertinent positives and negatives per history of present illness, all other systems reviewed and are negative Allergies Coded Allergies: Adhesives (Verified Allergy, Severe, Rash, 08/07/16) Blisters, Paper tape okay cranberry (Verified Allergy, Severe, Anaphylaxis, 08/07/16) gabapentin (Verified Allergy, Severe, Neurologic symptoms, 08/07/16) Stroke like symptoms amitriptyline (Verified Allergy, Intermediate, hypertension, 08/07/16) morphine (Verified Adverse Reaction, Severe, Rash, mouth blisters, 08/07/16 ) Uncoded Allergies: DISSOLVABLE SUTUTE (Allergy, Unknown, UNKNOWN, 10/30/12) Home Medications Aspirin Chew (Aspirin Chew) 81 Mg Chew 81 MG PO DAILY Atorvastatin Calcium (Atorvastatin Calcium) 40 Mg Tablet 40 MG PO HS Bacitracin (Bacitracin Ointment) 28.4 Gm Oint...g. 1 APPLIC TP DAILY Cholecalciferol (Vitamin D3) (Vitamin D3) 50,000 Unit Capsule 50,000 UNIT PO WEEKLY MONDAYS Clindamycin (Clindamycin) 300 Mg Capsule 300 MG PO QID Duloxetine (Duloxetine) 60 Mg Capsule.dr 60 MG PO DAILY Insulin Glargine (Lantus U100 Insulin Vial) 100 Unit/Ml Vial 30 UNIT SUBQ BID Insulin Glargine (Lantus U100 Insulin Vial) 100 Unit/Ml Vial 20 UNIT SUBQ MORNING Insulin Glargine (Lantus U100 Insulin Vial) 100 Unit/Ml Vial 30 UNIT SUBQ HS Insulin Human Lispro (HumaLOG U100 Insulin Vial) 100 Unit/Ml Unit 1-8 UNIT SUBQ ACHS Levothyroxine (Synthroid) 100 Mcg Tablet 100 MCG PO QAM Linezolid (Linezolid) 600 Mg Tablet 600 MG PO BID Lisinopril (Lisinopril) 20 Mg Tablet 20 MG PO HS Metoprolol Tartrate (Metoprolol Tartrate) 25 Mg Tablet 25 MG PO DAILY Mupirocin (Mupirocin Ointment) 22 Gm Oint...g. 1 APPLIC TOP TID Pregabalin (Lyrica) 50 Mg Capsule 50 MG PO TID Sulfamethoxazole/Trimeth 800-160 mg (Bactrim DS) 1 Each Tablet 1 TABLET PO BID Trazodone (Trazodone) 100 Mg Tablet 100 MG PO HS Hydrocodone-Acetaminophen 7.5-325 mg (Hydrocodone-Acetaminophen 7.5-325 mg) 1 Each Tablet 1 TABLET PO Q8H PRN PRN For Pain oxyCODONE-Acetaminophen 5-325 mg (oxyCODONE-Acetaminophen 5-325 mg) 1 Each Tablet 1 TAB PO Q4H PRN PRN For Pain PMH MRSA (Facial cellulitits, buttock abscess) Dysphagia Sinus problems Peripheral vascular disease Pneumonia (2007) Hiatal hernia Back injury S/P knee scope Hypothyroidism Reports: Asthma, COPD, Coronary artery disease, Diabetes mellitus, Hyperlipidemia, Hypertension Surgical History Heart cath 2001 Heart cath w/ stenting 11/2011 Bilat shoulder repair L ring finger repair R index finger repair Reports: , Carotid endarterectomy, Cataract surgery, Cholecystectomy, Hysterectomy Reports: Carpal tunnel Family History Mother is living in her 80s Sister of sudden cardiac ; no Sr. of cancer Father of brain cancer in his 60s Social History Hx Alcohol Use: No Hx Substance Use: No Hx Tobacco Use: Yes (1-1.5 pack per day) Smoking Status: Current Every Day Smoker Exam Vital Signs Vital Sign - Last Date Time Temp Pulse Resp B/P Pulse Ox O2 Delivery O2 Flow Rate FiO2 02/07/17 17:40 36.8 109 22 190/113 97 Room Air Exam General: Age-appropriate female in no acute distress HEENT: PERRLA, EOMI, nonicteric, membranes moist Lymph: No lymphadenopathy Cardio: Regular rate and rhythm no murmurs rubs or gallops Respiratory: CTA bilaterally, no wheezes, no crackles Abdomen: Soft, positive bowel sounds, nontender, nondistended Extremities: No edema noted, calf tenderness on palpation on the left, no erythema Psych: Appropriate mood and affect Neuro: CN II through XII grossly intact, decreased sensation in the lower extremities bilaterally Skin: No rash or areas of erythema Lab and Diagnostics X-Rays, CTs and MRIs FOOT: 1cm x 1cm ulcer about the base of the left greater toe granulation tissue at the base erythema and abscess about the lateral aspect of the left great big toe erythema extending half way up the mid foot packing present in the lateral aspect of the left great toe skin well profused Assessment & Plan 56-year-old female with the history of CAD with 4 stents, diabetes seems to be uncontrolled with peripheral neuropathy, and [id number] smoking history who presents due to a large left toe ulceration. Diabetic wound on the left toe with posisble osteomyelitis; present admission; ongoing -She is been a subacute problem and podiatry is taking the patient to surgery tomorrow -Likely due to combination of diabetes and vascular disease due to smoking -Patient states she has had some fevers and chills although none on record -Mild leukocytosis on presentation -Start vancomycin, ceftriaxone, and metronidazole -Nothing by mouth after midnight -Strict glucose control -Bcx taken -Procalcitonin now -Repeat CBC in a.m. Hypertension urgency with likely diabetic/HTN nephropathy; present admission; ongoing -Patient's blood pressure was 190/113 on admit -Mildly elevated creatinine at 1.05, baseline appears to be 0.9 -Home medications include lisinopril 20 mg twice a day; continue once med rec complete -Labetalol 20 mg IV push for SBP greater than 180 -Normal saline at 80 mL/hour Type II diabetes with neuropathy; present on admission; ongoing -Last A1c was 12.5 in July of this year -Home medication: Lantus and lispro -Blood glucose was greater than 450 on admit -Starting patient on non-DKA insulin drip for better glucose control tonight -Consider continuing this postop -Repeat A1c -Continue pregabalin CAD with 4 stents; present admission; ongoing -Continue atorvastatin and aspirin Hypothyroidism-continue home levothyroxine Disposition: Patient is being admitted to inpatient status with expected length of stay greater than two midnights due to to severity of presentation, duration of treatment, and risks of adverse events disposition PROGRESS: Since admission patient has been requesting ONLY IV Dilaudid (and initially refused her home hydrocodone 7.5) and threatens to leave AMA if she does not receive it. She was given 0.25mg IV dilaudid which elicited strong language to the nursing staff. When I went to discuss this with her 10 minutes later she was snoring. She is also refusing BG finger sticks while on insulin infusion and this was stopped, and then refused lantus and correctional. Essentially she is prohibitive about treating her BG. Pain Evaluation: Adequate Pain Control GI Prophylaxis: H2 carmine VTE Prophylaxis: Sub-Q Heparin (Unfractionated) Resuscitation Status: CPR: Attempt Resuscitation Attending Statement The patient was seen and examined together with Dr. Zapata on 02/07 and I agree with the history, exam and plan as outlined in the note above. Jaycob Zapata DO Feb 07, 2017 20:02 Shawn Cantor MD Feb 08, 2017 06:42
[2017-02-07 21:48] VITALS: BP 158/92; PULSE 102; RESP 20; O2SAT 98
[2017-02-07 22:51] VITALS: BP 160/82; PULSE 103; RESP 19; O2SAT 99
[2017-02-07] MEDS: 0.9% Sodium Chloride 1,000 ML IV SCH (23:05)
--- NOTE | 2017-02-07 23:34 | PCM.CONPHA ---
Subjective Date of Service: Feb 07, 2017 Requesting Provider: Jaycob Zapata DO Left leg pain and swelling Reason for Pharmacy Consult: Vancomycin Dosing Objective Vital Signs Date Time Temp Pulse Resp B/P Pulse Ox O2 Delivery O2 Flow Rate FiO2 02/07/17 22:51 36.8 103 19 160/82 99 Room Air 02/07/17 21:48 36.3 102 20 158/92 98 Room Air 02/07/17 17:40 36.8 109 22 190/113 97 Room Air Weight (Kilograms): 60.000 Height (Feet): 5 Height (Inches): 1.00 Test 02/07/17 20:13 02/07/17 20:14 02/07/17 21:39 White Blood Count 10.8th/mm3 (3.8-10.1) Red Blood Count 4.29mil/mm3 (3.90-5.20) Hemoglobin 12.5g/dL (12.0-15.6) Hematocrit 36.5% (35.0-46.0) Mean Corpuscular Volume 85.1fL (81-100) Mean Corpuscular Hemoglobin 29.1pg (27.0-35.0) Mean Corpuscular Hemoglobin Concent 34.2% (32.0-37.0) Red Cell Distribution Width 12.6% (12.3-15.4) Platelet Count 321bil/L (150-400) Neutrophils (%) (Auto) 61.7% (40-74) Lymphocytes (%) (Auto) 25.6% (14-46) Monocytes (%) (Auto) 7.9% (4-12) Eosinophils (%) (Auto) 3.3% (0-5) Basophils (%) (Auto) 0.5% (0-3) Prothrombin Time 9.3sec (8.1-12.5) Prothromb Time International Ratio 0.87ratio Sodium Level 132mEq/L (134-144) Potassium Level 4.1mEq/L (3.5-5.2) Chloride Level 93mEq/L (97-108) Carbon Dioxide Level 23mmol/L (18-29) Blood Urea Nitrogen 19mg/dL (6-24) Creatinine 1.05mg/dL (0.57-1.00) Estimat Glomerular Filtration Rate 77mL/min (>59) Glucose Level 460mg/dL (60-99) Calcium Level 9.1mg/dL (8.5-10.1) Total Bilirubin 0.2mg/dL (0.0-1.2) Aspartate Amino Transf (AST/SGOT) 10U/L (0-50) Alanine Aminotransferase (ALT/SGPT) 12U/L (0-32) Alkaline Phosphatase 160U/L (25-150) Total Protein 7.1g/dL (6.4-8.4) Albumin 3.5g/dL (3.4-5.0) Procalcitonin 0.05ng/mL (0.00-0.08) Hold [place]ado Top Tube Received (Received) Assessment/Plan Assessment/Plan A: * Vancomycin dosing by pharmacy for 56 y/o woman with diabetic wound on left toe * The patient was given a 1250 mg IV vancomycin loading dose in the ED * She is also being started on ceftriaxone and metronidazole * Estimated CrCl for this patient is 45 mL/min (Cockcroft & Gault) * Estimated vancomycin half-life is 17 hours and estimated Vd is 43 liters P: * Start vancomycin 1000 mg IV every 24 hours * Target a vancomycin trough in the range of 10 - 15 mcg/mL * Draw a trough level prior to the third dose Thank you. Pharmacy will continue to follow this patient. Gala Lee Feb 07, 2017 23:34
[2017-02-08 00:34] LABS: APPEARANCE,URINE HAZY (CLEAR,HAZY); COLOR,URINE STRAW (YELLOW); OCCULT BLOOD,URINE NEGATIVE (NEGATIVE); UROBILINOGEN,URINE NORMAL (NORMAL)
[2017-02-08 00:35] LABS: YEAST,URINE FEW (NONE SEEN)
[2017-02-08] MEDS: Insulin GLARgine 100 Unit/mL Syringe SUBQ SCH ×2 (00:45→20:44)
[2017-02-08] MEDS ORDERED: Glucose 40% Oral Gel 15 Gm Tube PO PRN (00:45)
[2017-02-08] MEDS: Sodium Chloride LOK Flush 10 mL Syringe IVFLUSH SCH ×4 (00:51→21:40)
[2017-02-08] MEDS: Heparin 5,000 Unit/mL Inj SUBQ SCH ×4 (00:52→21:40)
[2017-02-08] MEDS ORDERED: HYDROmorphone 0.5 mg/0.5 mL iSecure Syringe IVPUSH ONE ×2 (00:55→12:30)
[2017-02-08] MEDS: HYDROcodone-APAP 7.5-325 mg Tablet PO PRN ×3 (00:57→20:03)
[2017-02-08] MEDS ORDERED: Dextrose 10% 250 ML IV PRN (01:00)
[2017-02-08] MEDS: metroNIDAZOLE Inj 500 MG in IV Premix 1 EACH IV SCH ×4 (02:41→20:20)
[2017-02-08 03:06] VITALS: BP 159/73; PULSE 96; RESP 19; O2SAT 99
--- NOTE | 2017-02-08 05:22 | NUR ---
Admit Note Pt. arrived to the floor around 2240 via gurney accompanied by ED staff, alert and oriented, transfer self to bed with SBA, oriented to and call light, NPO after midnight, pt. aware and compliant, Pt. BG 460 on admit, at 2335 BG 313, initiated insulin drip per order verified with 2 RN, pt. BG decrease to 270 at 0035, patient refusing BG check Q1, notified Dr. Zapata, Dc'd insulin drip and ordered 30 units of lantus which pt. also refused, Made MD aware, Pt. asymptomatic, Pain managed by prn p.o norco and IV dialudid x1 dose, Dr. Zapata came by around 0130 but pt. sound asleep, hourly checks, VSS, call light in reach at all times, will continue to monitor.
[2017-02-08 06:42] VITALS: BP 110/65; PULSE 104; RESP 18; O2SAT 94
[2017-02-08 06:45] LABS: BASOPHILS % (AUTO) 0.4 % (0-3); EOSINOPHILS % (AUTO) 5.1 % (0-5); MONOCYTES % (AUTO) 8.1 % (4-12); Mean Corpuscular Hemoglobin 28.8 pg (27.0-35.0); Mean Corpuscular Volume 86.5 fL (81-100); NEUTROPHILS % (AUTO) 53.6 % (40-74); Platelet Count 273 bil/L (150-400)
[2017-02-08] MEDS ORDERED: Insulin LISPRO 300 Unit/3 mL Inj SUBQ SCH (08:00)
[2017-02-08] MEDS: cefTRIAXone Inj 2,000 MG in Dextrose 5% Minibag Plus 50 ML IV SCH (08:10)
[2017-02-08] MEDS: Insulin LISPRO 300 Unit/3 mL Inj SUBQ SCH ×5 (08:41→20:45)
[2017-02-08 11:11] VITALS: BP 107/65; PULSE 68; RESP 18; O2SAT 99
--- NOTE | 2017-02-08 11:33 | NUR ---
Wound Note Wound orders received, contacted Dr Manuela CALIX he plans to see patient for foot wound care and does not want wound nurse involvement at this time.
--- NOTE | 2017-02-08 12:25 | PCM.PNMED ---
Subjective Date of Service Feb 08, 2017 Subjective Patient was difficult to arouse this morning. However after being semi- awakened not opening her eyes she is requesting more IV Dilaudid which I told her that we cannot do that as she clearly is already too drowsy. She then very angrily threatened to sign out AMA but however did not. She has been very noncompliant with having her blood sugars checked which have been high. Did explain to her importance of having adequate blood sugar control for healing of an infection. Exam Vital Signs Vital Sign - Last Date Time Temp Pulse Resp B/P Pulse Ox O2 Delivery O2 Flow Rate FiO2 02/08/17 11:11 36.6 68 18 107/65 99 Room Air Intake and Output 02/07/17 02/07/17 02/08/17 Cumulative From/Thru 15:00 23:00 07:00 02/07/17 17:40 - 02/08/17 06:09 Intake Total 938 ml 938 ml Balance 938 ml 938 ml Intake Oral 480 ml 480 ml IV Total 458 ml 458 ml # Voids 2 2 Exam Constitutional: Drowsy female Head: Normocephalic atraumatic Chest: Clear to auscultation Cor: Regular rate and rhythm S1-S2 Abdomen: Soft nontender bowel sounds present Extremities: No pedal edema there is a dressing on her great toe and this is not removed Neuro: Alert and oriented 3, motor strength is intact bilaterally IVs and Medications Medications Reviewed: Medications were reviewed in detail Lab and Diagnostics Laboratory Tests 72 Hours Test 02/07/17 20:13 02/07/17 20:14 02/07/17 21:39 02/07/17 23:54 White Blood Count 10.8th/mm3 (3.8-10.1) Red Blood Count 4.29mil/mm3 (3.90-5.20) Hemoglobin 12.5g/dL (12.0-15.6) Hematocrit 36.5% (35.0-46.0) Mean Corpuscular Volume 85.1fL (81-100) Mean Corpuscular Hemoglobin 29.1pg (27.0-35.0) Mean Corpuscular Hemoglobin Concent 34.2% (32.0-37.0) Red Cell Distribution Width 12.6% (12.3-15.4) Platelet Count 321bil/L (150-400) Neutrophils (%) (Auto) 61.7% (40-74) Lymphocytes (%) (Auto) 25.6% (14-46) Monocytes (%) (Auto) 7.9% (4-12) Eosinophils (%) (Auto) 3.3% (0-5) Basophils (%) (Auto) 0.5% (0-3) Prothrombin Time 9.3sec (8.1-12.5) Prothromb Time International Ratio 0.87ratio Sodium Level 132mEq/L (134-144) Potassium Level 4.1mEq/L (3.5-5.2) Chloride Level 93mEq/L (97-108) Carbon Dioxide Level 23mmol/L (18-29) Blood Urea Nitrogen 19mg/dL (6-24) Creatinine 1.05mg/dL (0.57-1.00) Estimat Glomerular Filtration Rate 77mL/min (>59) Glucose Level 460mg/dL (60-99) Calcium Level 9.1mg/dL (8.5-10.1) Total Bilirubin 0.2mg/dL (0.0-1.2) Aspartate Amino Transf (AST/SGOT) 10U/L (0-50) Alanine Aminotransferase (ALT/SGPT) 12U/L (0-32) Alkaline Phosphatase 160U/L (25-150) Total Protein 7.1g/dL (6.4-8.4) Albumin 3.5g/dL (3.4-5.0) Procalcitonin 0.05ng/mL (0.00-0.08) Hold [place] Top Tube Received (Received) Urine Color Straw (YELLOW) Urine Appearance Hazy (CLEAR,HAZY) Urine pH 6.0 (5.0-8.0) Urine Specific [place] <1.005 (1.003-1.035) Urine Protein Negativemg/dL (NEG,TRACE) Urine Glucose (UA) >1000mg/dL (NEGATIVE) Urine Ketones Negativemg/dL (NEGATIVE) Urine Occult Blood Negative (NEGATIVE) Urine Nitrite Negative (NEGATIVE) Urine Bilirubin Negative (NEGATIVE) Urine Urobilinogen Normalmg/dL (NORMAL) Urine Leukocyte Esterase Negative (NEGATIVE) Urine RBC 3-10/hpf (0-2) Urine WBC 0-5/hpf (0-5) Urine Epithelial Cells Few/hpf (NONE-MOD) Urine Crystals None seen (NONE SEEN) Urine Bacteria Few/hpf (NONE-FEW) Urine Hyaline Casts None/lpf (NONE) Urine Granular Casts None seen (NONE SEEN) Urine Waxy Casts None seen (NONE SEEN) Urine Red Blood Cell Casts None seen (NONE SEEN) Urine White Blood Cell Casts None seen (NONE SEEN) Urine Mucus None seen (None Seen) Urine Trichomonas None seen (NONE SEEN) Urine Yeast Few (NONE SEEN) Urinalysis Comment None Urine Culture Reflexed Not indicated Test 02/08/17 06:15 White Blood Count 6.9th/mm3 (3.8-10.1) Red Blood Count 3.78mil/mm3 (3.90-5.20) Hemoglobin 10.9g/dL (12.0-15.6) Hematocrit 32.7% (35.0-46.0) Mean Corpuscular Volume 86.5fL (81-100) Mean Corpuscular Hemoglobin 28.8pg (27.0-35.0) Mean Corpuscular Hemoglobin Concent 33.3% (32.0-37.0) Red Cell Distribution Width 12.8% (12.3-15.4) Platelet Count 273bil/L (150-400) Neutrophils (%) (Auto) 53.6% (40-74) Lymphocytes (%) (Auto) 31.9% (14-46) Monocytes (%) (Auto) 8.1% (4-12) Eosinophils (%) (Auto) 5.1% (0-5) Basophils (%) (Auto) 0.4% (0-3) Sodium Level 137mEq/L (134-144) Potassium Level 4.3mEq/L (3.5-5.2) Chloride Level 104mEq/L (97-108) Carbon Dioxide Level 21mmol/L (18-29) Blood Urea Nitrogen 14mg/dL (6-24) Creatinine 0.90mg/dL (0.57-1.00) Estimat Glomerular Filtration Rate 92mL/min (>59) Glucose Level 315mg/dL (60-99) Calcium Level 8.0mg/dL (8.5-10.1) Result Diagram: 02/08/1715 02/08/17 0615 X-Rays, CTs and MRIs FOOT: 1cm x 1cm ulcer about the base of the left greater toe granulation tissue at the base erythema and abscess about the lateral aspect of the left great big toe erythema extending half way up the mid foot packing present in the lateral aspect of the left great toe skin well profused Assessment & Plan 56-year-old female with the history of CAD with 4 stents, diabetes seems to be uncontrolled with peripheral neuropathy, and [id number] smoking history who presents due to a large left toe ulceration. Diabetic wound on the left toe with posisble osteomyelitis; present admission; ongoing -She is been a subacute problem and podiatry is taking the patient to surgery tomorrow -Likely due to combination of diabetes and vascular disease due to smoking -Patient states she has had some fevers and chills although none on record -Mild leukocytosis on presentation -Start vancomycin, ceftriaxone, and metronidazole -Nothing by mouth after midnight but per podiatry patient will not be taken to the OR -Strict glucose control -Bcx taken -Procalcitonin now -Repeat CBC in a.m. Hypertension urgency with likely diabetic/HTN nephropathy; present admission; ongoing -Patient's blood pressure was 190/113 on admit -Mildly elevated creatinine at 1.05, baseline appears to be 0.9 -Home medications include lisinopril 20 mg twice a day; continue once med rec complete -Labetalol 20 mg IV push for SBP greater than 180 -Normal saline at 80 mL/hour Type II diabetes with neuropathy; present on admission; ongoing -Last A1c was 12.5 in July of this year -Home medication: Lantus and lispro -Blood glucose was greater than 450 on admit -Starting patient on non-DKA insulin drip for better glucose control on the evening of admission however patient refused blood glucose checks so this was DC 'd -Repeat A1c -Continue pregabalin CAD with 4 stents; present admission; ongoing -Continue atorvastatin and aspirin Hypothyroidism-continue home levothyroxine Disposition: Patient is being admitted to inpatient status with expected length of stay greater than two midnights due to to severity of presentation, duration of treatment, and risks of adverse events disposition PROGRESS: Since admission patient has been requesting ONLY IV Dilaudid (and initially refused her home hydrocodone 7.5) and threatens to leave AMA if she does not receive it. She was given 0.25mg IV dilaudid which elicited strong language to the nursing staff. When I went to discuss this with her 10 minutes later she was snoring. She is also refusing BG finger sticks while on insulin infusion and this was stopped, and then refused lantus and correctional. Essentially she is prohibitive about treating her BG. GI Prophylaxis: H2 carmine VTE Prophylaxis: Sub-Q Heparin (Unfractionated) Resuscitation Status: CPR: Attempt Resuscitation Time spent 30 minutes Sheree Aguirre MD Feb 08, 2017 12:25
--- NOTE | 2017-02-08 13:03 | PCM.CHPPOD ---
Subjective Date of service Feb 08, 2017 History of Present Illness 56-year-old neuropathic diabetic female admitted to [facility] yesterday for treatment of abscess and cellulitis of the left great toe. Patient was evaluated in my office yesterday and referred to the emergency department. This patient originally presented to the emergency department February 06 for treatment of the cellulitis of her left great toe and left AGAINST MEDICAL ADVICE due to agitation and complaining of significant discomfort. Patient is noted to be resting comfortably in bed today patient states that she has pain and throbbing of her left leg and foot. This patient has a history of osteomyelitis of her left fifth metatarsal head and left fifth toe resulting in imitation of her left fifth toe and fifth metatarsal head. Patient states that she feels very sick to her stomach today. Allergy Allergies: Coded Allergies: Adhesives (Verified Allergy, Severe, Rash, 08/07/16) Blisters, Paper tape okay cranberry (Verified Allergy, Severe, Anaphylaxis, 08/07/16) gabapentin (Verified Allergy, Severe, Neurologic symptoms, 08/07/16) Stroke like symptoms amitriptyline (Verified Allergy, Intermediate, hypertension, 08/07/16) morphine (Verified Adverse Reaction, Severe, Rash, mouth blisters, 08/07/16 ) Uncoded Allergies: DISSOLVABLE SUTUTE (Allergy, Unknown, UNKNOWN, 10/30/12) Medications Aspirin Chew (Aspirin Chew) 81 Mg Chew 81 MG PO DAILY Atorvastatin Calcium (Atorvastatin Calcium) 40 Mg Tablet 40 MG PO HS Hydrocodone-Acetaminophen 7.5-325 mg (Hydrocodone-Acetaminophen 7.5-325 mg) 1 Each Tablet 1 TABLET PO Q8H PRN PRN For Pain Insulin Glargine (Lantus U100 Insulin Vial) 100 Unit/Ml Vial 20 UNIT SUBQ MORNING Insulin Glargine (Lantus U100 Insulin Vial) 100 Unit/Ml Vial 30 UNIT SUBQ HS Insulin Human Lispro (HumaLOG U100 Insulin Vial) 100 Unit/Ml Unit 1-8 UNIT SUBQ ACHS Check blood sugars before meals and at bedtime. Use correction factor only before meals. Blood Sugar Lispro Correction: <151, 0 units; 151-175, 1 unit; 176-200, 2 units; 201-225, 3 units; 226-250, 4 units; 251-275, 5 units; 276-300 , 6 units; 301-325, 7 units; 326-350, 8 units; 351-375, 9 units; 376-400, 10 units; >400, 12 units. Levothyroxine (Synthroid) 100 Mcg Tablet 100 MCG PO QAM Lisinopril (Lisinopril) 20 Mg Tablet 20 MG PO HS Lisinopril (Lisinopril) 20 Mg Tablet 20 MG PO BID Pregabalin (Lyrica) 100 Mg Capsule 100 MG PO BID Sulfamethoxazole/Trimeth 800-160 mg (Bactrim DS) 1 Each Tablet 1 TABLET PO BID Trazodone (Trazodone) 100 Mg Tablet 100 MG PO HS Past Medical History Surgeries: Yes (R-carotidenderectomy, stents, bilat.shoulders, fingers repair, c-sec, natacha) Medical History: Surgical History: Social History Hx Alcohol Use: No Hx Substance Use: No Hx Tobacco Use: Yes (1-1.5 pack per day) Smoking Status: Current Every Day Smoker Podiatry Consult Exam Vital Signs Vital Sign - Last Date Time Temp Pulse Resp B/P Pulse Ox O2 Delivery O2 Flow Rate FiO2 02/08/17 11:11 36.6 68 18 107/65 99 Room Air Intake and Output 02/07/17 02/07/17 02/08/17 Cumulative From/Thru 15:00 23:00 07:00 02/07/17 17:40 - 02/08/17 06:09 Intake Total 938 ml 938 ml Balance 938 ml 938 ml Intake Oral 480 ml 480 ml IV Total 458 ml 458 ml # Voids 2 2 Result Diagram: 02/08/17 0615 02/08/17 0615 Lab Test 02/07/17 20:13 02/07/17 20:14 02/07/17 21:39 02/07/17 23:54 Prothrombin Time 9.3sec (8.1-12.5) Prothromb Time International Ratio 0.87ratio Total Bilirubin 0.2mg/dL (0.0-1.2) Aspartate Amino Transf (AST/SGOT) 10U/L (0-50) Alanine Aminotransferase (ALT/SGPT) 12U/L (0-32) Alkaline Phosphatase 160U/L (25-150) Total Protein 7.1g/dL (6.4-8.4) Albumin 3.5g/dL (3.4-5.0) Procalcitonin 0.05ng/mL (0.00-0.08) Hold [place] Top Tube Received (Received) Urine Color Straw (YELLOW) Urine Appearance Hazy (CLEAR,HAZY) Urine pH 6.0 (5.0-8.0) Urine Specific [place] <1.005 (1.003-1.035) Urine Protein Negativemg/dL (NEG,TRACE) Urine Glucose (UA) >1000mg/dL (NEGATIVE) Urine Ketones Negativemg/dL (NEGATIVE) Urine Occult Blood Negative (NEGATIVE) Urine Nitrite Negative (NEGATIVE) Urine Bilirubin Negative (NEGATIVE) Urine Urobilinogen Normalmg/dL (NORMAL) Urine Leukocyte Esterase Negative (NEGATIVE) Urine RBC 3-10/hpf (0-2) Urine WBC 0-5/hpf (0-5) Urine Epithelial Cells Few/hpf (NONE-MOD) Urine Crystals None seen (NONE SEEN) Urine Bacteria Few/hpf (NONE-FEW) Urine Hyaline Casts None/lpf (NONE) Urine Granular Casts None seen (NONE SEEN) Urine Waxy Casts None seen (NONE SEEN) Urine Red Blood Cell Casts None seen (NONE SEEN) Urine White Blood Cell Casts None seen (NONE SEEN) Urine Mucus None seen (None Seen) Urine Trichomonas None seen (NONE SEEN) Urine Yeast Few (NONE SEEN) Urinalysis Comment None Urine Culture Reflexed Not indicated Test 02/08/17 06:15 White Blood Count 6.9th/mm3 (3.8-10.1) Red Blood Count 3.78mil/mm3 (3.90-5.20) Hemoglobin 10.9g/dL (12.0-15.6) Hematocrit 32.7% (35.0-46.0) Mean Corpuscular Volume 86.5fL (81-100) Mean Corpuscular Hemoglobin 28.8pg (27.0-35.0) Mean Corpuscular Hemoglobin Concent 33.3% (32.0-37.0) Red Cell Distribution Width 12.8% (12.3-15.4) Platelet Count 273bil/L (150-400) Neutrophils (%) (Auto) 53.6% (40-74) Lymphocytes (%) (Auto) 31.9% (14-46) Monocytes (%) (Auto) 8.1% (4-12) Eosinophils (%) (Auto) 5.1% (0-5) Basophils (%) (Auto) 0.4% (0-3) Sodium Level 137mEq/L (134-144) Potassium Level 4.3mEq/L (3.5-5.2) Chloride Level 104mEq/L (97-108) Carbon Dioxide Level 21mmol/L (18-29) Blood Urea Nitrogen 14mg/dL (6-24) Creatinine 0.90mg/dL (0.57-1.00) Estimat Glomerular Filtration Rate 92mL/min (>59) Glucose Level 315mg/dL (60-99) Calcium Level 8.0mg/dL (8.5-10.1) Exam General: Alert, Oriented X3, Cooperative, No Acute Distress Lower Extremity Pulses: Palpable: Left Dorsalis Pedis Left Posterior Tibal Podiatry WOUND : Wound Location/Description Left hallux medial ulcerations full-thickness to subcutaneous tissue without exposed bone or tendon. Erythema which was present on evaluation yesterday has decreased significantly and only extends to the immediate wound edges. There is a minimal amount of purulent drainage today mixed with serosanguineous discharge there is no malodor there is no clearly exposed bone or tendon. This ulceration is into 3 smaller wounds when measured together total 4 cm x 2.8 cm x 0.4 cm in depth. The most proximal aspect of the wound probes subcutaneously proximally towards the first metatarsophalangeal joint. No streaking is noted today Incision General Appearence: Erythmia Assessment & Plan Assessment Diabetic foot ulceration of the left great toe acutely infected with descending cellulitis Problems: Pain Management: Continue current antibiotic regimen. Consider consultation for Dr. Hwang from infectious disease to determine long-term IV antibiotic therapy. X-ray is negative today for signs of obvious osteomyelitis however due to this patient's history of osteomyelitis of the left foot I would suggest a potential full course of 6 weeks IV antibiotic therapy. The left great toe dressing was removed today and the toe was prepped with Betadine soaked gauze. A #15 blade was utilized to incise the most dorsal aspects of the ulceration to connect to smaller ulceration subcutaneously. Full- thickness excisional debridement was performed of the ulcerations with removal of all necrotic soft tissue. The wound was then copiously flushed with large amounts of normal saline. This wound appears to have greatly improved since evaluation yesterday. The wound was then packed with iodoform packing gauze dressed with Betadine soaked gauze dry sterile gauze Kerlix and a loosely applied Earnest bandage. This patient is complaining of significant discomfort and I 'm going to authorize a one-time dose of IV pain medication. No plans for further surgical intervention today. This wound will be reevaluated tomorrow. This patient may be stable for transition back to outpatient care provided we have determined her outpatient IV antibiotic plan tomorrow after reevaluation. I have discussed with the patient that I would prefer she is nonweightbearing to her left forefoot however she will be allowed to be partial weightbearing to her left heel. Please keep her left foot dressing clean dry and intact. Podiatry will continue to follow daily. VTE Prophylaxis: Sub-Q Heparin (Unfractionated) Mario Roy DPM Feb 08, 2017 13:02
[2017-02-08] MEDS: 0.9% Sodium Chloride 1,000 ML IV SCH ×2 (14:19→22:40)
--- NOTE | 2017-02-08 16:49 | NUR ---
Pain/Behavior Patient was demanding and uncooperative at the beginning of the shift, she wanted to go home if her wishes are not granted. Explained what's going on and she was given options, agreed to stay and waited for Dr. Roy. Pain level of 6-9/10. Patient was given PRN pain meds and a one time IV Dilaudid post bedside debridement. Patient was aware and agreeable of the plan of care. Will continue to monitor. Addendum: 02/08/17 at 1850 by PHOENIX PATEL RN Patient drowsy and unable to hold attention, from Dilaudid dose not able to check her blood glucose and will hold Insulin dose until she will be able to consent.
--- NOTE | 2017-02-08 17:09 | NUR ---
Social Work: Brief Note Patient is a 56 year old female who was admitted on 02/07/2017 for left toe/foot cellulitis per H&P. Patient 's insurance is [employer] and her PCP is Juan M Frost MD. SW visited patient's room in an attempt to complete initial assessment. Patient was in bed asleep. No family was at bedside. SW did not wake patient. SW will revisit patient at a later time to complete assessment. SW will continue to follow for needs. LALIT Morrison
--- NOTE | 2017-02-08 19:56 | NUR ---
BEHAVIOR Pt slept through dinner and up to shift change. Pt woke up, stated "I didn't have dinner why didn't anybody wake me." Previous RN already ordered dinner and gave to pt. Pt finished dinner, put healthcare network pricing consultant light, pt sitting up in bed requesting blankets and extra drinks and to fix her bed. Upon return with requests, pt appeared to be crying. Pt went on to say her leg is swelling, throbbing, how much it hurts. Told pt I can give her hydrocodone. Came back to give it, pt stated "Call Dr. Roy, I told him I am leaving if my pain is not managed." Called Dr. Roy, gave him night hospitalists pager to discuss pain management. Updated pt on phone call with Dr. Roy. Pt continued to not engage in the conversation at hand, demanding pain management. Told pt the only thing available is hydrocodone. Pt complied with that. Pt stating how her pain management is not being handled appropriately, told pt that RN cannot change what is ordered. On the way out of the room, pt said under her breath "bitch." Upon confrontation, pt denied saying that. On the way out again, pt demanded nicotine patch. Told pt nicotine patch was discontinued. Pt demanded to know why stating "That's not their decision, it's my decision, not a doctor's, not anyone else's. I want my nicotine patch now." Paged Dr. Bauer, who ordered nicotine patch. Continuing care. Addendum: 02/08/17 at 2323 by LANDRY FRY RN Later applied nicotine patch per order. Pt continued to show high levels of anxiety and reporting discomfort in her l. leg and foot "My left leg is three times the size of the other leg, it just keeps throbbing and hurting. No one has looked at it except for the doctor yesterday, you girls don't look at it even though I keep asking." Assured pt that this RN has been trying to deal with her initial complaints of pain making it difficult to do a full assessment of her leg. Pt continues to say "Nobody has looked at it at all, I've had ice on it for 7 hours and it hasn't done anything. What are you going to do about it?" Pt then demanded she speak with the physician. Paged Dr. Bauer, who later came on the floor to speak with pt. ordered dilaudid, see EMAR. After speaking with , pt had notably calmed down and continued to have many requests for care and dilaudid. Gave 0.25mg dilaudid, pt satisfied with this. Pt has not made any other complaints of swollen leg or severe pain thereafter. Pt lying in bed appears to be sleeping.
[2017-02-08] MEDS ORDERED: Vancomycin Inj 1,000 MG in IV Premix 1 EACH IV SCH (21:00)
[2017-02-08] MEDS: HYDROmorphone 0.5 mg/0.5 mL iSecure Syringe IVPUSH PRN (22:04)
[2017-02-08 23:04] VITALS: BP 163/94; PULSE 105; RESP 24; O2SAT 96
--- NOTE | 2017-02-08 23:29 | NUR ---
BLOOD SUGAR Pt blood sugar elevated above 300, see EMR. Gave HS lantus. Told pt had 7 units of lispro, pt stated "I can't take that. It'll tank me. I only take that with meals." Explained to pt that her blood sugars have been very high and this would help to correct blood sugars from a late dinner. Pt continued to refuse despite education. Later pt requesting peanut butter and crackers. Told pt this would increase her blood sugar especially since she did not take the lispro, but pt still wanted the snack. Gave snack, will further educate pt on need for blood glucose control if pt continues to ask for carbohydrate-high snacks.
[2017-02-09] MEDS: metroNIDAZOLE Inj 500 MG in IV Premix 1 EACH IV SCH ×3 (02:12→14:41)
[2017-02-09] MEDS: HYDROcodone-APAP 7.5-325 mg Tablet PO PRN ×3 (04:10→13:37)
[2017-02-09] MEDS: HYDROmorphone 0.5 mg/0.5 mL iSecure Syringe IVPUSH PRN (05:13)
[2017-02-09 05:52] VITALS: BP 171/92; PULSE 93; RESP 14; O2SAT 98
--- NOTE | 2017-02-09 05:56 | NUR ---
PAIN Pt awoke from sleep at approx. 0400 requesting pain medications. Pt appeared to be starting to cry upon RN entering room, describing pain "It's just throbbing and I have a headache and the side of my face is hurting." Gave pt [place]. Upon reassessment, pt appeared to be sleeping. Pt woke up soon after stating "It still hurts." Gave dilaudid. Upon reassessment, pt appeared to be sleeping. Later woke up pt up for VS, pt needed repeated gently stimulus to wake up. Immediately after waking up, pt c/o continued pain in head. No pain medications can be given per orders. Returned to speak with pt about this, pt appeared to be sleeping again, did not attempt to arouse. Hourly rounding.
[2017-02-09] MEDS: Sodium Chloride LOK Flush 10 mL Syringe IVFLUSH SCH ×2 (08:30→16:30)
[2017-02-09 09:10] VITALS: BP 133/68; PULSE 101; RESP 18; O2SAT 98
[2017-02-09] MEDS: Heparin 5,000 Unit/mL Inj SUBQ SCH ×2 (09:24→18:28)
[2017-02-09] MEDS: Insulin LISPRO 300 Unit/3 mL Inj SUBQ SCH ×4 (09:42→22:00)
[2017-02-09] MEDS: 0.9% Sodium Chloride 1,000 ML IV SCH ×2 (11:10→23:40)
--- NOTE | 2017-02-09 11:43 | NUR ---
Pain and attempting to leave AMA Pt was sleeping peacefully this morning. WOke up around 0850 and called for pain medication. Was informed it was not time for IV dilaudid and provided pt with [place] which was available. She complained about swelling in her foot, explained to pt that it was bc it was not elevated above her heart while sleeping so while it wasn't dependent the swelling would decrease more if she elevated it higher. Pt stated she would not, that was not true and she was going to sit on edge of bed with leg dependent. Pt also c/o of itching, she states it's not the dilaudid, it's the nicotine patch. She has not had a BM in several days, she has hypoactive BT and she reports having constipation from narcotics in the past. Pt offered senna which she agreed to take 1 of the 2 tabs ordered. BS in AM was 230, per orders she was supposed to take 4 units of lispro, pt stated that she is "very sensitive and I will only take half of that." Provided pt with 2 units of insulin per her request. MD aware. Pt ate her breakfast and then went back to sleep. During hourly rounds pt appeared comfortable. Professional Architect was in room while she was sleeping and she did not arrouse to her presence in the room. Pt was awoken by MD for rounding and was informed IV dilaudid was discontinued. She became upset and angry at dr. She pushed the call light within 2 min of MD leaving room. When this RN went into room, she was eating a yogurt and asked this RN for her next dose of IV dilaudid. Explained to pt that the medication was discontinued and she became very upset. Starting swearing and saying this was "bullshit" and calling the Dr a "bitch." Pt states she wants to see Dr Hamilton. Called OR where Dr Hamilton was in surgery and he stated he would come to floor when available from surgery. Spoke with surgery aide, Dr will not be done with surgery until after 1700. Spoke with pt and she says she will leave the hospital. Wants to get dressed. Explained to pt that this RN would get paperwork ready for her. She states she has AMA paperwork from last night. States no one witnessed her signing it. Asked pt if she would sign a new sheet and she declines. Explained that this RN could sign sheet from last night if she would sign again. She declines. Stated to pt that would need a copy of this sheet to which she agrees but states she will follow this RN to copy machine as no additional writing may be placed on her sheet. Explained to pt that this RN would put another AMA paper in her file explaining that she would not sign a witnessed copy. She becomes upset and states "you can't do that." Explained that it is the right of this RN to explain the situation in her chart. She continues to state that the [place] is her home medication and she is not receiving any additional medication for her foot. On [facility], it appears that pt receives [place] at home q8hr. She is receiving it here q4hr which is twice as often as normal to help control her pain. Attempted to get supplies ready to satisfy pt's request to leave AMA, went back into room and she now states she will stay until Dr Hamilton sees her. Explained this will most likely be after 1700. She grumbles but agrees. Then states she only wants Dr Hamilton in her room. Explained that Dr Hamilton had requested a ID consult. Unsure if this will happen today but pt agrees to ID consult, just does not want hospitalist to return to her room until she sees Dr Hamilton. Notified Dr Aguirre of pt's request.
[2017-02-09] MEDS: cefTRIAXone Inj 2,000 MG in Dextrose 5% Minibag Plus 50 ML IV SCH (12:15)
--- NOTE | 2017-02-09 12:40 | PCM.PNPOD ---
Subjective Date of Service: Feb 09, 2017 Date of Service: Feb 09, 2017 Visit Information: Reason for Visit Left Toe/Foot Cellulitis Surgery/Surgery Date Post-Op Day # Date of Admission: Feb 07, 2017 at 20:17 Hospital Day # Subjective: 56-year-old female is evaluated at bedside in no acute distress admitted for treatment of abscess and cellulitis of the left great toe. Patient states that she is in severe pain of her left lower extremity including her foot and leg and she states that her current oral medication regimen is not effective in eliminating her discomfort. Patient states that the low dose Dilaudid has been effective. Patient states that yesterday she developed a pain on the side of her left face and head which has been on E alleviated by rest and or her pain medication. She denies any fevers or chills. Patient is sitting at bedside eating lunch at the time of visit Postop General: No Complaints Gastrointestinal: Good Appetite Pain Management: PO, Continued Pain Issues Postop Activity: Other (nonweightbearing left foot) Objective Vital Sign - Last Date Time Temp Pulse Resp B/P Pulse Ox O2 Delivery O2 Flow Rate FiO2 02/09/17 09:10 36.8 101 18 133/68 98 Room Air Intake and Output 02/08/17 02/08/17 02/09/17 Cumulative From/Thru 15:00 23:00 07:00 02/07/17 17:40 - 02/09/17 05:53 Intake Total 2047 ml 4863 ml 7848 ml Output Total 1000 ml 1600 ml 2600 ml Balance 1047 ml 3263 ml 5248 ml Intake Oral 1072 ml 2750 ml 4302 ml IV Total 975 ml 2113 ml 3546 ml Output Urine Total 1000 ml 1600 ml 2600 ml # Voids 2 Result Diagram: 02/08/17 0615 02/08/17 0615 Lab Test 02/07/17 20:13 02/07/17 20:14 02/07/17 21:39 02/07/17 23:54 Prothrombin Time 9.3sec (8.1-12.5) Prothromb Time International Ratio 0.87ratio Total Bilirubin 0.2mg/dL (0.0-1.2) Aspartate Amino Transf (AST/SGOT) 10U/L (0-50) Alanine Aminotransferase (ALT/SGPT) 12U/L (0-32) Alkaline Phosphatase 160U/L (25-150) Total Protein 7.1g/dL (6.4-8.4) Albumin 3.5g/dL (3.4-5.0) Procalcitonin 0.05ng/mL (0.00-0.08) Hold [place] Top Tube Received (Received) Hemoglobin A1c 11.8% (4.8-5.6) Urine Color Straw (YELLOW) Urine Appearance Hazy (CLEAR,HAZY) Urine pH 6.0 (5.0-8.0) Urine Specific [place] <1.005 (1.003-1.035) Urine Protein Negativemg/dL (NEG,TRACE) Urine Glucose (UA) >1000mg/dL (NEGATIVE) Urine Ketones Negativemg/dL (NEGATIVE) Urine Occult Blood Negative (NEGATIVE) Urine Nitrite Negative (NEGATIVE) Urine Bilirubin Negative (NEGATIVE) Urine Urobilinogen Normalmg/dL (NORMAL) Urine Leukocyte Esterase Negative (NEGATIVE) Urine RBC 3-10/hpf (0-2) Urine WBC 0-5/hpf (0-5) Urine Epithelial Cells Few/hpf (NONE-MOD) Urine Crystals None seen (NONE SEEN) Urine Bacteria Few/hpf (NONE-FEW) Urine Hyaline Casts None/lpf (NONE) Urine Granular Casts None seen (NONE SEEN) Urine Waxy Casts None seen (NONE SEEN) Urine Red Blood Cell Casts None seen (NONE SEEN) Urine White Blood Cell Casts None seen (NONE SEEN) Urine Mucus None seen (None Seen) Urine Trichomonas None seen (NONE SEEN) Urine Yeast Few (NONE SEEN) Urinalysis Comment None Urine Culture Reflexed Not indicated Test 02/08/17 06:15 White Blood Count 6.9th/mm3 (3.8-10.1) Red Blood Count 3.78mil/mm3 (3.90-5.20) Hemoglobin 10.9g/dL (12.0-15.6) Hematocrit 32.7% (35.0-46.0) Mean Corpuscular Volume 86.5fL (81-100) Mean Corpuscular Hemoglobin 28.8pg (27.0-35.0) Mean Corpuscular Hemoglobin Concent 33.3% (32.0-37.0) Red Cell Distribution Width 12.8% (12.3-15.4) Platelet Count 273bil/L (150-400) Neutrophils (%) (Auto) 53.6% (40-74) Lymphocytes (%) (Auto) 31.9% (14-46) Monocytes (%) (Auto) 8.1% (4-12) Eosinophils (%) (Auto) 5.1% (0-5) Basophils (%) (Auto) 0.4% (0-3) Sodium Level 137mEq/L (134-144) Potassium Level 4.3mEq/L (3.5-5.2) Chloride Level 104mEq/L (97-108) Carbon Dioxide Level 21mmol/L (18-29) Blood Urea Nitrogen 14mg/dL (6-24) Creatinine 0.90mg/dL (0.57-1.00) Estimat Glomerular Filtration Rate 92mL/min (>59) Glucose Level 315mg/dL (60-99) Calcium Level 8.0mg/dL (8.5-10.1) Exam General: Alert, Oriented X3, Cooperative, No Acute Distress Lower Extremity Pulses: Palpable: Left Dorsalis Pedis Left Posterior Tibal Podiatry WOUND : Wound Location/Description Left great toe medial ulcerations with proximal extension to the superficial area overlying the medial first metatarsal phalangeal joint erythema has reduced significantly in both intensity and overall area there is a minimal amount of purulent discharge emanating from the proximal aspect of the wound which is mixed with serous fluid. No rey pus is noted there is no malodor no exposed bone or tendon. Assessment & Plan Impression Stable slowly improving left hallux abscess/cellulitis with chronic ulceration of the left great toe Problems: Pain Management: Wound dressing change today and the wound was copiously flushed with large amounts of normal saline. This wound was then dressed with Betadine soaked gauze dry sterile 4 x 4 gauze Kerlix and a loosely applied Earnest bandage. This dressing will be changed daily by the podiatry service. Continue IV antibiotic therapy, suggest infectious disease consultation with Dr. Hwang for outpatient IV antibiotic therapy plan. This patient will likely require 6 weeks of IV antibiotics as she has a history of left foot osteomyelitis. Nonweightbearing left lower extremity, this patient has been noncompliant with her weightbearing status during her course of stay in the hospital. Patient complains of continued severe pain of her left lower extremity. This patient has been known to my outpatient service for several months and has not had any opioid abuse concerns within my practice. Patient typically receives outpatient chronic pain medication from her primary care doctor in [place]. I suggests transitioning from hydrocodone 5/325 to oxycodone 5/325 one to 2 tablets every 4 as needed for severe pain of her left foot. This patient's stated pain level is consistent with her wound and recent bedside incision and drainage. Patient continues to threatened leaving AMA I have informed her multiple times that the decision to leave AGAINST MEDICAL ADVICE would almost certainly result in further infection of her left great toe and left foot requiring amputation at the very least of her left hallux. She states verbal understanding and continues to state that she will leave AGAINST MEDICAL ADVICE if her pain medication is not altered. Podiatry will continue to follow daily VTE Prophylaxis: Sub-Q Heparin (Unfractionated) Mario Roy DPM Feb 09, 2017 12:40
--- NOTE | 2017-02-09 12:52 | NUR ---
Social Work: Initial Assessment / Multidisciplinary Rounds Data: See initial assessment. Patient is a 56 year old female who was admitted on 02/07/2017 for left toe & foot cellulitis per H&P. Patient's insurance is [employer] and her PCP is Juan M Hull MD. EMR reviewed. SW visited patient's room in an attempt to complete initial assessment. SW role explained. Patient informed SW that she did not want to speak with her because she was going to sleep. SW met with primary RN and was informed that patient was provided medication prior to arrival. SW was able to gather information for assessment from prior visits/admissions and H&P. Patient resides with a friend in [place]. Patient is I at baseline and is able to perform all ADLs and care needs. Patient drives via POV. Patient has no hx of home health services or SNF. Patient does not have DPOA or AD at this time. Patient was provided AD resource on a previous visit. Upon discharge, patient will arrange her own transportation. Patient was discussed in morning rounds. No concerns noted by staff or MD. SW will continue to follow. Assessment: Patient will discharge home when medically stable. Plan: Patient will discharge home when medically stable. Patient will arranged her own transportation. Patient will likely have no needs. SW will continue to follow. LALIT Morrison Addendum: 02/09/17 at 1303 by NADJA VALDEZ SS Amended: Links added.
--- NOTE | 2017-02-09 14:35 | PCM.PNMED ---
Subjective Date of Service Feb 09, 2017 Subjective Patient today was woken up from sleeping and was quite angry that we will not give her any more doses of IV Dilaudid. I did explain to her yesterday that she was quite difficult to arouse after getting IV Dilaudid and that that is not safe. We also discussed the fact that she will be going home soon most likely on an IV antibiotic and will need to be taking oral pain medications to control her pain. Patient again today did threatened to sign out AMA if she did not get IV Dilaudid. Exam Vital Signs Vital Sign - Last Date Time Temp Pulse Resp B/P Pulse Ox O2 Delivery O2 Flow Rate FiO2 02/09/17 09:10 36.8 101 18 133/68 98 Room Air Intake and Output 02/08/17 02/08/17 02/09/17 Cumulative From/Thru 15:00 23:00 07:00 02/07/17 17:40 - 02/09/17 05:53 Intake Total 2047 ml 4863 ml 7848 ml Output Total 1000 ml 1600 ml 2600 ml Balance 1047 ml 3263 ml 5248 ml Intake Oral 1072 ml 2750 ml 4302 ml IV Total 975 ml 2113 ml 3546 ml Output Urine Total 1000 ml 1600 ml 2600 ml # Voids 2 Exam Constitutional: Middle-aged female difficult to arouse from sleep but then gets angry when she requests IV Dilaudid Head: Normocephalic atraumatic Chest: Clear to auscultation Cor: Regular rate and rhythm S1-S2 Abdomen: Soft nontender bowel sounds present Extremities: Left great toe is dressed and she does have slight increased lower pedal edema on the left side compared to the right extending up to maybe the chance area. This is of note patient did have a negative venous duplex for DVT on admission) Neuro: Alert and oriented 3, motor strength is intact bilaterally Lab and Diagnostics Result Diagram: 02/08/1761402/08/17614 X-Rays, CTs and MRIs FOOT: 1cm x 1cm ulcer about the base of the left greater toe granulation tissue at the base erythema and abscess about the lateral aspect of the left great big toe erythema extending half way up the mid foot packing present in the lateral aspect of the left great toe skin well profused Assessment & Plan 56-year-old female with the history of CAD with 4 stents, diabetes seems to be uncontrolled with peripheral neuropathy, and [id number] smoking history who presents due to a large left toe ulceration. Diabetic wound on the left toe with posisble osteomyelitis; present admission; ongoing -She is been a subacute problem and podiatry is taking the patient to surgery tomorrow -Likely due to combination of diabetes and vascular disease due to smoking -Patient states she has had some fevers and chills although none on record -Mild leukocytosis on presentation -Start vancomycin, ceftriaxone, and metronidazole -Infectious disease consultation with Dr. Hwang has been ordered for antibiotic management and whether further imaging studies need to be done Hypertension urgency with likely diabetic/HTN nephropathy; present admission; ongoing, resolved -Patient's blood pressure was 190/113 on admit -Mildly elevated creatinine at 1.05, baseline appears to be 0.9 -Blood pressure improved since admission Type II diabetes with neuropathy; present on admission; ongoing -Last A1c was 12.5 in July of this year -Home medication: Lantus and lispro -Blood glucose was greater than 450 on admit -Starting patient on non-DKA insulin drip for better glucose control on the evening of admission however patient refused blood glucose checks so this was DC 'd -Repeat A1c -Continue pregabalin -Patient has poor glucose control as evidenced by her lab work here and also her hemoglobin A1c value. -She is not compliant with the dosing regimen here and is explained to her that is quite important to have good blood sugar control in order to control her current foot infection CAD with 4 stents; present admission; ongoing -Continue atorvastatin and aspirin Hypothyroidism-continue home levothyroxine Chronic opiate use, present on admission -I did not get into [facility] regarding her prescription monitoring and she does have some idiosyncrasies noted back in February 2016 she obtained from 2 different providers which were filled at the same pharmacy in [place] by 2 days essentially 160 of Vicodin and 50 of oxycodone. She also had dated the same date November prescriptions filled at the same pharmacy again in [place] by the same primary care provider for Vicodin which were filled #90 and repeat #90 in December from both prescriptions being dated December 20. Disposition: Patient is being admitted to inpatient status with expected length of stay greater than two midnights due to to severity of presentation, duration of treatment, and risks of adverse events disposition GI Prophylaxis: H2 carmine VTE Prophylaxis: Sub-Q Heparin (Unfractionated) Resuscitation Status: CPR: Attempt Resuscitation Time spent 25 minutes Sheree Aguirre MD Feb 09, 2017 14:35 later she was snoring. She is also refusing BG finger sticks while on insulin infusion and this was stopped, and then refused lantus and correctional. Essentially she is prohibitive about treating her BG. GI Prophylaxis: H2 carmine VTE Prophylaxis: Sub-Q Heparin (Unfractionated) Resuscitation Status: CPR: Attempt Resuscitation Time spent 25 minute Sheree Aguirre MD Feb 09, 2017 14:35
--- NOTE | 2017-02-09 17:24 | CONS ---
[address] [address] CONSULTATION REPORT PATIENT: JIMI GONZALES : 1960 MR#: [id number] ADMIT: 02/07/2017 JOB ID: [id number] DATE OF SERVICE: 02/09/2017 INFECTIOUS DISEASE CONSULTATION: I thank Drs. Aguirre and Manuela for this timely consult, as they both asked me to see this patient. 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 She also has very significant diabetes with neuropathy. In the early part of this year she had a very significant infection of her left 5th toe and metatarsal which required surgical resection to resolve. That was a MRSA infection and the patient was treated apparently only by the oral route as I was not involved in her care at that time. She did receive a long course of clindamycin as part of that treatment. More recently she has developed swelling and tenderness along the medial aspect of the left great toe. This apparently started with a blister which has steadily worsened. She has been receiving a variety of oral antibiotics including clindamycin and Bactrim but this has been progressive. She was seen a couple of days ago in the clinic by Dr. Roy and a debridement done with culture sent. That culture is not yet done, but the Gram stain shows gram-positive cocci. In any event, she was admitted to this facility after that clinic visit on the with Dr. Roy and IV antibiotics initiated. Dr. Roy has also performed additional debridements. I spoke to Dr. Roy in detail this afternoon. He told me that he had just changed the wound and so I did not remove her dressings as part of this consult. Dr. Roy told me there is a deep wound which he has sharply debrided, and it extends almost down to bone, and he wants to consider treating this patient as if she has osteo. He thinks the probability of underlying osteo is probably greater than 50/50 in this foot at this point. The patient tells me that she has not had significant fever or chills with this. She does describe some left-sided headache. She does not have pulmonary or GI symptoms along with this, either, and notes that her foot is actually hurting more as the days go by rather than less with the multiple debridements and IV antibiotics. Much of the time with the patient has revolved around her discussing in quite bitter terms about how she has not been receiving enough pain meds here in the hospital. The patient said she will likely leave within hours unless she gets additional pain meds, as this is her single greatest problem rather than the infection itself and she feels she is not being understood. In discussing this case with the hospitalist, as well as the nursing staff, it appears this is the overriding focus the last day or two and has become a large problem in this patient's care. One of the progress notes details that there may be discrepancies in her outpatient narcotic refill practices. 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 2. Peripheral vascular disease. 3. 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 4. Hypothyroidism. 5. History of osteomyelitis, left 5th toe. SOCIAL HISTORY: The patient is an ongoing one pack per day cigarette smoker. She reports this is a big improvement as she is down about 50% in terms of smoking recently. She is not a significant alcohol consumer and is a retired [employer] employee. FAMILY HISTORY: Negative for TB in first- or second-degree relatives. REVIEW OF SYSTEMS: The patient reports a left-sided headache which is quite severe and almost lancinating in character. This started a day or so ago. It is not associated with any weakness or paralysis in her face that she is aware of. She has progressive and worsening blurry vision, despite cataract surgery in the past. She wonders if she has diabetic involvement of the eye, but has not had this evaluated. Oral cavity: She describes some teeth in need of additional upkeep but no other complaints. No sore throat. She denies significant cough, shortness of breath, chest pain, nausea, vomiting, diarrhea, or dysuria. She has severe pain in and about her left foot at the site of the great toe and extending up the foot. She notes she has the severe neuropathy in her feet. Remainder of the review of systems negative. PHYSICAL EXAMINATION: Reveals an afebrile woman temp 36.8, pulse 101, respiratory rate 18, blood pressure 133/68. She is saturating well on room air and in no acute distress. Examination of the head reveals no evidence of trauma or temporal wasting. Conjunctivae are a bit pale, but without other abnormalities. No scleral icterus. Nose normal. Oral cavity without thrush or hairy leukoplakia. Teeth in fair repair, with maybe some low-level gingivitis. No pharyngitis is seen. The neck is supple. Lungs are clear. Cardiac tones regular rate and rhythm. Abdomen soft, nontender, without organomegaly. Perhaps a bit distended. No suprapubic tenderness. The patient's lower extremities with diminished peripheral pulses and slow capillary refill on the available right foot. The left foot is wrapped in a large dressing which I was asked not to remove as it was just placed an hour so ago by Dr. Roy after a reevaluation and debridement of the left great toe. The patient does not have synovitis of the lower extremities and there is no significant peripheral edema. Neurologically she is grossly intact but has almost no sensation in her feet, consistent with a severe neuropathy. LABORATORIES: Include white blood count 10,000 on the and now 6000, normal diff. Creatinine 0.9. Procalcitonin zero. LFTs normal, except alk phos slightly up 160. Urinalysis with white cells. Blood cultures negative. MRSA screen of the nares negative. It is notable that back in July she had many positive cultures from her foot for MRSA, however. IMAGING: An x-ray of the foot done on the was reviewed. It shows no rey evidence of osteo. A venous Doppler study of the left lower extremity reveals no DVT. IMPRESSION: This is a difficult patient in that she has very poorly controlled underlying diabetes and continues to smoke heavily in the face of recurrent diabetic foot infections on the left. Earlier this year she lost her left 5th toe and part of the metatarsal and now is at risk to lose her great toe. Whether or not she has osteomyelitis cannot be determined by the plain radiographs and Dr. Roy thinks he believes that after debriding her foot it is likely but not proven she has osteomyelitis. I agree with Dr. Roy it is probably reasonable to proceed with treatment along the lines of underlying osteomyelitis with either oral or IV therapies. To effectively do so, we will need to have a better handle on the microbiology of this infection, which I suspect will be staphylococcal. I called [facility] to try and get the results of the cultures that were done February 07, but they are being reincubated and there is no final answer, though we do know there were gram-positive cocci on the Gram stain. RECOMMENDATIONS: 1. Will continue with our broad-spectrum antibiotics for the time being pending cultures. She is currently on vancomycin, ceftriaxone, and Flagyl. The Flagyl is excessive in its dose and is 500 q.6 and it is being given by the IV route and I will go ahead and switch this to oral in a dose of 500 q.12. 2. Close followup on the vancomycin levels will be indicated as the patient is certainly at risk for nephrotoxicity. 3. I will continue to closely follow this patient with you and I will especially await the final culture results, which will help us to determine outpatient antibiotics. Depending on the results of these cultures will need to decide in conjunction with the patient whether or not she wishes IV or oral therapy. 4. The patient's intense focus on pain medicines makes this a volatile situation as she reports she will soon sign out AMA unless she receives additional intravenous rather than oral pain meds. If she does sign out AMA I would provide her with a prescription for an oral antibiotic such as clindamycin, likely to cover the organisms in her foot, but I think this would be a huge mistake for her as we do not yet know the microbiology of this infection and have not appropriately planned for her prolonged antibiotics and followup to treat what is likely an osteomyelitis. Thank you very much.
[2017-02-09 18:26] VITALS: BP 171/78; PULSE 102; RESP 18; O2SAT 97
[2017-02-09] MEDS: oxyCODONE-Acetamin 5-325 mg Tablet PO PRN ×2 (18:32→22:31)
[2017-02-09] MEDS: Ondansetron 2 mg/mL 2 mL Inj IVPUSH PRN (19:28)
[2017-02-09] MEDS ORDERED: Vancomycin Serum Trough XX ONE (20:00)
[2017-02-09 20:30] VITALS: BP 178/92; PULSE 101; RESP 18; O2SAT 99
[2017-02-09] MEDS: Insulin GLARgine 100 Unit/mL Syringe SUBQ SCH (21:06)
--- NOTE | 2017-02-09 21:37 | PCM.PHAPRO ---
Progress Date of Service: Feb 09, 2017 Left leg pain and swelling VANCOMYCIN MANAGEMENT A\ 56 YO F WITH A DIABETIC WOUND TO THE LEFT TOE. VANCOMYCIN GOAL =10-15 CURRENT VANCOMYCIN TROUGH= 5.5 WBC=6.9 SCR=0.9 CRCL=52 PCR=NEG CULTURE NO GROWTH FOR 24HRS P\ WILL SPLIT DOSE AND GIVE Q12H VANCOMYCIN 500MG IV Q12H 1ST DOSE 02/09 2200 THEN A LEVEL BEFORE THE 4TH DOSE 02/11 0930 WILL MONITOR SERUM CREATININE DAILY X3. Roni Duncan [facility] Feb 09, 2017 21:37
[2017-02-09] MEDS: Vancomycin Inj 500 MG in 0.9% Sodium Chloride 100 ML IV SCH (22:08)
--- NOTE | 2017-02-09 22:43 | NUR ---
Refused HS Lispro Pt. refused her HS correction dose of Lispro, states she never takes any correction at HS because it will be fine in the morning.
[2017-02-10] MEDS: Sodium Chloride LOK Flush 10 mL Syringe IVFLUSH SCH ×2 (00:43→07:43)
[2017-02-10] MEDS: Heparin 5,000 Unit/mL Inj SUBQ SCH ×2 (00:46→07:42)
[2017-02-10 01:00] VITALS: BP 100/58; PULSE 76; RESP 16; O2SAT 97
[2017-02-10] MEDS: oxyCODONE-Acetamin 5-325 mg Tablet PO PRN ×3 (02:36→11:11)
[2017-02-10 06:15] VITALS: BP 119/68; PULSE 73; RESP 16; O2SAT 97
[2017-02-10] MEDS: Ondansetron 2 mg/mL 2 mL Inj IVPUSH PRN (07:40)
[2017-02-10] MEDS: 0.9% Sodium Chloride 1,000 ML IV SCH (07:41)
[2017-02-10] MEDS: cefTRIAXone Inj 2,000 MG in Dextrose 5% Minibag Plus 50 ML IV SCH (07:41)
[2017-02-10] MEDS: Insulin LISPRO 300 Unit/3 mL Inj SUBQ SCH ×2 (08:00→12:00)
[2017-02-10] MEDS ORDERED: Vancomycin Dose per Pharmacist XX SCH (08:30)
[2017-02-10] MEDS: Vancomycin Inj 500 MG in 0.9% Sodium Chloride 100 ML IV SCH (11:00)
--- NOTE | 2017-02-10 12:31 | NUR ---
AMA Patient choosing to go AMA d/t wanting to have a cigarette, explained numerous times by RN's over the last couple days & Md that it's against hospital policy & that she'd have to go AMA, stated "I'll have my cigarette & check myself back in through the ED", let her know that it's not as easy as it sounds & that it may take some time. IV catheter x 1 removed. AMA paper signed. All items gathered, nothing left behind. Nicotine patch that was placed this a.m. removed. Md offered to increase dosage of nicotine patch, stated "No, I want a cigarette". Patient escorted out by RN. ED charge master coordinator Toya called by primary RN to give her a heads up on situation, Toya plans to page Md to see if she can go home on PO antibiotics.
--- NOTE | 2017-02-10 15:15 | NUR ---
Social Work- AMA Social Work notified that pt left AMA today. Pt's UTOX was pending. Pt was likely to d/c home on PO abx, but cultures were pending. LALIT Lee
[2017-02-10] MEDS ORDERED: CLIN-78 PO (16:21)
[2017-02-10] MEDS ORDERED: METR500T PO (16:30)
--- NOTE | 2017-02-10 17:58 | PCM.DC.MED ---
Discharge Summary Date of Service Feb 10, 2017 Dates of Hospitalization Date of Hospital Admission Feb 07, 2017 at 20:17 Date of Discharge: Feb 10, 2017 Providers: Admitting Physician: Shawn Cantor MD Primary Care Physician: Juan M Hull MD Attending Physician: Sheree Aguirre MD Diagnosis at Time of Discharge Diagnosis at Time of Discharge Left great toe ulcer with infectious process and possible osteomyelitis Consultations Infectious disease, podiatry Procedures XRay, CTs & MRIs FOOT: 1cm x 1cm ulcer about the base of the left greater toe granulation tissue at the base erythema and abscess about the lateral aspect of the left great big toe erythema extending half way up the mid foot packing present in the lateral aspect of the left great toe skin well profused Brief History 56-year-old female with history of CAD with stent 4, diabetes with neuropathy, and [id number] history of smoking who presents to emergency department from Dr. Roy's office due to persistent diabetic ulceration on the left great toe with reported associated fever and chills for 24 hours, as well as left calf pain that started today. Patient states that this wound started couple of weeks ago and she has been seeking care with podiatry. When the patient went to her appointment today the wound was assessed and she was sent to the ED to be admitted for IV antibiotics prior to planned surgical debridement tomorrow. Patient states that the left Pain started somewhat abruptly over the last day or so and extends from the knee down to her ankle. She denies additional erythema, or edema. The patient denies chest pain, shortness breath, headache, dysuria, or changes in bowel habits. Patient had tried Bactrim as an outpatient which has not seemed to have been effective. Emergency department venous ultrasound was negative for DVT, and a first x-ray was negative for rey evidence of osteomyelitis. Patient a very mild leukocytosis of 10.8, post found to be hyperglycemic at 460 and creatinine 1.05. Hospital Course 56-year-old female with the history of CAD with 4 stents, diabetes seems to be uncontrolled with peripheral neuropathy, and [id number] smoking history who presents due to a large left toe ulceration. Diabetic wound on the left toe with posisble osteomyelitis; present admission; ongoing -She is been a subacute problem and podiatry is taking the patient to surgery tomorrow -Likely due to combination of diabetes and vascular disease due to smoking -Patient states she has had some fevers and chills although none on record -Mild leukocytosis on presentation -Started iv vancomycin, ceftriaxone, and metronidazole -Infectious disease consultation with Dr. Hwang has recommended switching the metronidazole to by mouth and await change in antibiotics until further culture identification is obtained -Patient signed out AMA late this morning as she wanted to have a cigarette Hypertension urgency with likely diabetic/HTN nephropathy; present admission; ongoing, resolved -Patient's blood pressure was 190/113 on admit -Mildly elevated creatinine at 1.05, baseline appears to be 0.9 -Blood pressure improved since admission Type II diabetes with neuropathy; present on admission; ongoing -Last A1c was 12.5 in July of this year -Home medication: Lantus and lispro -Blood glucose was greater than 450 on admit -Starting patient on non-DKA insulin drip for better glucose control on the evening of admission however patient refused blood glucose checks so this was DC 'd -Repeat A1c -Continue pregabalin -Patient has poor glucose control as evidenced by her lab work here and also her hemoglobin A1c value. -She is not compliant with the dosing regimen here and is explained to her that is quite important to have good blood sugar control in order to control her current foot infection CAD with 4 stents; present admission; ongoing -Continue atorvastatin and aspirin Hypothyroidism-continue home levothyroxine Chronic opiate use, present on admission -I did get into [facility] regarding her prescription monitoring and she does have some idiosyncrasies noted back in February 2016 she obtained from 2 different providers which were filled at the same pharmacy in [place] by 2 days essentially 160 of Vicodin and 50 of oxycodone. She also had dated the same date November prescriptions filled at the same pharmacy again in [place] by the same primary care provider for Vicodin which were filled #90 and repeat #90 in December from both prescriptions being dated December 20. Disposition: Patient is being admitted to inpatient status with expected length of stay greater than two midnights due to to severity of presentation, duration of treatment, and risks of adverse events disposition Exam Vital Signs (Last) Date Time Temp Pulse Resp B/P Pulse Ox O2 Delivery O2 Flow Rate FiO2 02/10/17 06:15 36.7 73 16 119/68 97 Room Air Exam Exam grossly this morning prior to patient signing out AMA Constitutional: Middle-aged female who looks older there than her stated age Head: Normocephalic atraumatic Chest: Clear to auscultation and Cor: Regular rate and rhythm S1-S2 Abdomen: Soft nontender bowel sounds present Extremities exam of left her foot is dressed but proximal to that she does have trace to 1+ edema just to above the ankle area : Neuro alert and oriented 3, motor strength is intact bilaterally Test 02/07/17 20:13 02/07/17 20:14 02/07/17 21:39 02/07/17 23:54 Prothrombin Time 9.3sec (8.1-12.5) Prothromb Time International Ratio 0.87ratio Total Bilirubin 0.2mg/dL (0.0-1.2) Aspartate Amino Transf (AST/SGOT) 10U/L (0-50) Alanine Aminotransferase (ALT/SGPT) 12U/L (0-32) Alkaline Phosphatase 160U/L (25-150) Total Protein 7.1g/dL (6.4-8.4) Albumin 3.5g/dL (3.4-5.0) Procalcitonin 0.05ng/mL (0.00-0.08) Hold [place] Top Tube Received (Received) Hemoglobin A1c 11.8% (4.8-5.6) Urine Color Straw (YELLOW) Urine Appearance Hazy (CLEAR,HAZY) Urine pH 6.0 (5.0-8.0) Urine Specific [place] <1.005 (1.003-1.035) Urine Protein Negativemg/dL (NEG,TRACE) Urine Glucose (UA) >1000mg/dL (NEGATIVE) Urine Ketones Negativemg/dL (NEGATIVE) Urine Occult Blood Negative (NEGATIVE) Urine Nitrite Negative (NEGATIVE) Urine Bilirubin Negative (NEGATIVE) Urine Urobilinogen Normalmg/dL (NORMAL) Urine Leukocyte Esterase Negative (NEGATIVE) Urine RBC 3-10/hpf (0-2) Urine WBC 0-5/hpf (0-5) Urine Epithelial Cells Few/hpf (NONE-MOD) Urine Crystals None seen (NONE SEEN) Urine Bacteria Few/hpf (NONE-FEW) Urine Hyaline Casts None/lpf (NONE) Urine Granular Casts None seen (NONE SEEN) Urine Waxy Casts None seen (NONE SEEN) Urine Red Blood Cell Casts None seen (NONE SEEN) Urine White Blood Cell Casts None seen (NONE SEEN) Urine Mucus None seen (None Seen) Urine Trichomonas None seen (NONE SEEN) Urine Yeast Few (NONE SEEN) Urinalysis Comment None Urine Culture Reflexed Not indicated Test 02/08/17 06:15 02/09/17 19:48 02/09/17 21:55 02/10/17 06:55 White Blood Count 6.9th/mm3 (3.8-10.1) Red Blood Count 3.78mil/mm3 (3.90-5.20) Hemoglobin 10.9g/dL (12.0-15.6) Hematocrit 32.7% (35.0-46.0) Mean Corpuscular Volume 86.5fL (81-100) Mean Corpuscular Hemoglobin 28.8pg (27.0-35.0) Mean Corpuscular Hemoglobin Concent 33.3% (32.0-37.0) Red Cell Distribution Width 12.8% (12.3-15.4) Platelet Count 273bil/L (150-400) Neutrophils (%) (Auto) 53.6% (40-74) Lymphocytes (%) (Auto) 31.9% (14-46) Monocytes (%) (Auto) 8.1% (4-12) Eosinophils (%) (Auto) 5.1% (0-5) Basophils (%) (Auto) 0.4% (0-3) Sodium Level 137mEq/L (134-144) Potassium Level 4.3mEq/L (3.5-5.2) Chloride Level 104mEq/L (97-108) Carbon Dioxide Level 21mmol/L (18-29) Blood Urea Nitrogen 14mg/dL (6-24) Estimat Glomerular Filtration Rate 92mL/min (>59) Glucose Level 315mg/dL (60-99) Calcium Level 8.0mg/dL (8.5-10.1) Vancomycin Level Trough 5.5mcg/mL Hold Red Top Tube Received (Received) Creatinine 0.85mg/dL (0.57-1.00) Discharge Medications Discharge Medications Aspirin Chew (Aspirin Chew) 81 Mg Chew 81 MG PO DAILY (Reported) Atorvastatin Calcium (Atorvastatin Calcium) 40 Mg Tablet 40 MG PO HS Prescribed by: TRENA MENEZES MD Clindamycin (Clindamycin) 300 Mg Capsule 300 MG PO QID Prescribed by: JAVAD VILLAFANA MD Insulin Glargine (Lantus U100 Insulin Vial) 100 Unit/Ml Vial 20 UNIT SUBQ MORNING Prescribed by: MANDIE OAKLEY DO Insulin Glargine (Lantus U100 Insulin Vial) 100 Unit/Ml Vial 30 UNIT SUBQ HS Prescribed by: MANDIE OAKLEY DO Insulin Human Lispro (HumaLOG U100 Insulin Vial) 100 Unit/Ml Unit 1-8 UNIT SUBQ ACHS (Reported) Check blood sugars before meals and at bedtime. Use correction factor only before meals. Blood Sugar Lispro Correction: <151, 0 units; 151-175, 1 unit; 176-200, 2 units; 201-225, 3 units; 226-250, 4 units; 251-275, 5 units; 276-300 , 6 units; 301-325, 7 units; 326-350, 8 units; 351-375, 9 units; 376-400, 10 units; >400, 12 units. Levothyroxine (Synthroid) 100 Mcg Tablet 100 MCG PO QAM (Reported) Lisinopril (Lisinopril) 20 Mg Tablet 20 MG PO HS Prescribed by: MANDIE OAKLEY DO Lisinopril (Lisinopril) 20 Mg Tablet 20 MG PO BID (Reported) Metronidazole (Flagyl) 500 Mg Tablet 500 MG PO Q8H Prescribed by: JAVAD VILLAFANA MD Pregabalin (Lyrica) 100 Mg Capsule 100 MG PO BID (Reported) Sulfamethoxazole/Trimeth 800-160 mg (Bactrim DS) 1 Each Tablet 1 TABLET PO BID Prescribed by: SANTIAGO CRISOSTOMO MD Trazodone (Trazodone) 100 Mg Tablet 100 MG PO HS (Reported) As needed Hydrocodone-Acetaminophen 7.5-325 mg (Hydrocodone-Acetaminophen 7.5-325 mg) 1 Each Tablet 1 TABLET PO Q8H PRN PRN For Pain (Reported) Followup Plan Disposition: Patient signed out AMA Time spent 30 minutes copies to: Juan M Hull MD, Cheryl A MD Feb 10, 2017 17:58
[2017-02-11] MEDS ORDERED: Vancomycin Serum Trough XX ONE (09:30)
[2017-02-14] MEDS ORDERED: HYDR2TAB28 PO (17:27)
== END 2017-02-10 12:40 | disposition left against medical advice (07) | DRG 344 ==
LOC: SED 17:28 → MOC 20:17
PROVIDERS: ADMIT Hospitalist; ATTEND Specialist
PROC: 0JBR0ZZ Excision of Left Foot Subcutaneous Tissue and Fascia, Open Approach (ICD-10-PCS; principal; 2017-02-09)
DX: E11.69 Type 2 diabetes mellitus with other specified complication (principal); L02.612 Cutaneous abscess of left foot; M86.9 Osteomyelitis, unspecified; E11.21 Type 2 diabetes mellitus with diabetic nephropathy; E11.621 Type 2 diabetes mellitus with foot ulcer; E11.42 Type 2 diabetes mellitus with diabetic polyneuropathy; L03.032 Cellulitis of left toe; L97.529 Non-pressure chronic ulcer of other part of left foot with unspecified severity; I16.0 Hypertensive urgency; N18.9 Chronic kidney disease, unspecified; I25.10 Atherosclerotic heart disease of native coronary artery without angina pectoris; E11.65 Type 2 diabetes mellitus with hyperglycemia; E03.9 Hypothyroidism, unspecified; Z79.4 Long term (current) use of insulin; Z95.5 Presence of coronary angioplasty implant and graft; Z79.891 Long term (current) use of opiate analgesic; J44.9 Chronic obstructive pulmonary disease, unspecified; J45.909 Unspecified asthma, uncomplicated; F17.210 Nicotine dependence, cigarettes, uncomplicated; I73.9 Peripheral vascular disease, unspecified

== ENCOUNTER 2017-02-10 14:55 | Emergency (ER) | payer OTHER ==
[~2017-02-10] VITALS: Ht 154.9 cm; Wt 61.4 kg
[2017-02-10 14:55] VITALS: BP 167/83; PULSE 88; RESP 14; O2SAT 99
[~2017-02-10 14:55] MED LIST changes: -BACI28.4 TP; -CHOL500050 PO; -CLIN-78 PO; -DULO60CA61 PO; -LINE600T7 PO; -METO25TA6 PO; -MUPI22OI2 TOP; -OXYC1TAB24 PO; +PREG100C PO; -PREG50CA PO
--- NOTE | 2017-02-10 15:20 | ED.REPORT ---
HPI-Extremity Problem Lower Date of Service Feb 10, 2017 ED Provider: Mikael Perera MD Patient is a 56 year old female with a hx of DM with diabetic foot ulcers, CAD, peripheral vascular disease, and HTN who has been admitted for L foot cellulitis for the past 3 days. Pt was referred to the ED at that time by her tipple engineer. She was originally started on ceftriaxone and vancomyacin. Plan per Dr. Roy was for abx and consultation with Dr. Hwang with infectious disease. Her wound was packed and dressed. There is no plan for further surgical intervention per surgical consultation note. She presents to the emergency department after leaving the inpatient service to Medical advice to go smoke a cigarette. She is requesting to be readmitted. Her in-patient team came to the ED to discuss her admission and plan of care with me. Per hospitalist, pt repeatedly threatened to leave AMA if she did not get IV Dilaudid. Earlier today she left AMA because she wanted to go outside and smoke. Pt will not be admitted and should be prescribed PO linezolid and flagyl as she is felt to be appropriate for outpatient management. She needs to f/u with her PCP/tipple engineer and Dr. Hwang as an outpatient. Nursing Notes Stated Complaint: LEFT FOOT PAIN Chief Complaint: General Complaint Nursing Notes Reviewed: Yes Allergies: Coded Allergies: Adhesives (Verified Allergy, Severe, Rash, 02/10/17) Blisters, Paper tape okay cranberry (Verified Allergy, Severe, Anaphylaxis, 02/10/17) gabapentin (Verified Allergy, Severe, Neurologic symptoms, 02/10/17) Stroke like symptoms amitriptyline (Verified Allergy, Intermediate, hypertension, 02/10/17) morphine (Verified Adverse Reaction, Severe, Rash, mouth blisters, 02/10/17 ) Uncoded Allergies: DISSOLVABLE SUTUTE (Allergy, Unknown, UNKNOWN, 10/30/12) Scheduled Aspirin Chew (Aspirin Chew) 81 Mg Chew 81 MG PO DAILY Atorvastatin Calcium (Atorvastatin Calcium) 40 Mg Tablet 40 MG PO HS Clindamycin (Clindamycin) 300 Mg Capsule 300 MG PO QID Insulin Glargine (Lantus U100 Insulin Vial) 100 Unit/Ml Vial 20 UNIT SUBQ MORNING Insulin Glargine (Lantus U100 Insulin Vial) 100 Unit/Ml Vial 30 UNIT SUBQ HS Insulin Human Lispro (HumaLOG U100 Insulin Vial) 100 Unit/Ml Unit 1-8 UNIT SUBQ ACHS Check blood sugars before meals and at bedtime. Use correction factor only before meals. Blood Sugar Lispro Correction: <151, 0 units; 151-175, 1 unit; 176-200, 2 units; 201-225, 3 units; 226-250, 4 units; 251-275, 5 units; 276-300 , 6 units; 301-325, 7 units; 326-350, 8 units; 351-375, 9 units; 376-400, 10 units; >400, 12 units. Levothyroxine (Synthroid) 100 Mcg Tablet 100 MCG PO QAM Lisinopril (Lisinopril) 20 Mg Tablet 20 MG PO HS Lisinopril (Lisinopril) 20 Mg Tablet 20 MG PO BID Metronidazole (Flagyl) 500 Mg Tablet 500 MG PO Q8H Pregabalin (Lyrica) 100 Mg Capsule 100 MG PO BID Sulfamethoxazole/Trimeth 800-160 mg (Bactrim DS) 1 Each Tablet 1 TABLET PO BID Trazodone (Trazodone) 100 Mg Tablet 100 MG PO HS Scheduled PRN Hydrocodone-Acetaminophen 7.5-325 mg (Hydrocodone-Acetaminophen 7.5-325 mg) 1 Each Tablet 1 TABLET PO Q8H PRN PRN For Pain General Time Seen by MD: 15:17 Chief Complaint Foot injury left Hx Obtained From: Patient Arrived By: Walk-in Symptom Duration: Since onset Location: : Foot left Quality: Painful Severity: Current: Moderate Severity: Maximum: Moderate Pertinent Negative: Pt denies other symptoms Immunizations: Unknown Recent Healthcare: Recent hospitalization Similar Sx Previous: Yes Past Medical History Past Medical History Notes: chronic pain, on chronic opiate usage as of 03/2016 Past Medical History MRSA (Facial cellulitits, buttock abscess) Dysphagia Sinus problems Peripheral vascular disease Pneumonia (2007) Hiatal hernia Back injury and DDD S/P knee scope Hypothyroidism breast cyst Reports: Asthma, COPD, Coronary artery disease, Diabetes mellitus, Hyperlipidemia, Hypertension Past Surgical History Heart cath 2001 Heart cath w/ stenting 11/2011 Bilat shoulder repair L ring finger repair R index finger repair Reports: , Carotid endarterectomy, Cataract surgery, Cholecystectomy, Hysterectomy Reports: Carpal tunnel Smoking History Current Every Day Smoker Social History Alcohol Use: "Social" Drug Use: Denies drug use Occupation lives with best friend, retired from [employer] 04/13/2016 Ambulatory Status Independent Review of Systems Constitutional: Denies: Chills, Fever Musculoskeletal: Reports: Extremity pain (L foot ) Neurologic: Reports: Dizziness Complete sys rev & neg: except as marked. Physical Exam Initial Vital Signs Vital Signs (First) Date Time Temp Pulse Resp B/P Pulse Ox O2 Delivery O2 Flow Rate FiO2 02/10/17 14:55 36.6 88 14 167/83 99 Room Air Initial VS: Reviewed, Vital signs normal Head / Eyes: Atraumatic, Normocephalic Neck: Full range of motion Respiratory: No respiratory distress Cardiovascular: Regular rate & rhythm, Intact distal pulses Skin: Warm, Dry Neurologic: Alert, Oriented, Nonfocal Psychiatric: Mood/affect normal, Behavior normal, Normal thought content Lower Extremity / Pelvis / MS: No deformity, Neurologic intact, Vascular intact No erythema tracking up the leg or calf Ankle / Foot: No deformity healing 1 cm by 1 cm ulceration base of L great toe with granulation draining ulceration medial aspect base L great toe mild erythema extend to base of toe Re-Eval/Medical Decision Med Decision/Clinical Course Patient is a 56 year old female with a hx of DM with diabetic foot ulcers, CAD, peripheral vascular disease, and HTN who has been admitted for L foot cellulitis for the past 3 days. Pt was referred to the ED at that time by her tipple engineer. She was originally started on ceftriaxone and vancomyacin. Plan per Dr. Roy was for abx and consultation with Dr. Hwang with infectious disease. Her wound was packed and dressed. There is no plan for further surgical intervention per surgical consultation note. She presents to the emergency department after leaving the inpatient service to Medical advice to go smoke a cigarette. She is requesting to be readmitted. Her in-patient team came to the ED to discuss her admission and plan of care with me. Per hospitalist, pt repeatedly threatened to leave AMA if she did not get IV Dilaudid. Earlier today she left AMA because she wanted to go outside and smoke. Pt will not be admitted and should be prescribed PO linezolid and flagyl as she is felt to be appropriate for outpatient management. She needs to f/u with her PCP/tipple engineer and Dr. Hwang as an outpatient. Reviewed Dr. Hwang's note from 02/09/17 which states that if pt left AMA he would recommend oral clindamycin. Here in the emergency department the patient is afebrile, hemodynamically stable and in no apparent distress. I am actually quite minor this patient as I admitted her 3 days ago. I examined her foot and her regions of ulceration and erythema are markedly improved from when I initially evaluated her and admitted her. I contacted her tipple engineer Dr. Roy and reviewed the situation. He does not think that she should be readmitted as she is actually felt to be quite appropriate for outpatient management at this time. He is willing to see her in his office on Sunday and request that she call his office Sunday morning to arrange for an appointment. I discussed the patient with Dr. Hwang regarding antibiotic choice. Patient states that last time she took clindamycin that he gave her C. difficile. Dr. Hwang would like her to be treated with a nasal lid and Flagyl. She already has a prescription for Linezolid and I have added a prescription for Flagyl. I had a long discussion with the patient regarding my discussions with her inpatient team, her tipple engineer and the infectious disease specialist. All parties agree that she is appropriate for outpatient management and at this time she is afebrile, hemodynamically stable in no apparent distress. She has a strong follow-up plan and will fill her antibiotics today. Prior to discharge follow-up and return precautions were reviewed in detail with the patient who verbalized understanding and agreement with the plan. The patient was discharged in stable condition. Re-Evaluation/Progress #1: Re-Evaluation/Progress Note: Reviewed Dr. Hwang's note from 02/09/17 which states that if pt left AMA he would recommend oral clindamycin Re-Evaluation/Progress #2: Time of Eval: 16:25 Re-Evaluation/Progress Note: Discussed plan for discharge with close follow up and PO abx. Patient understands and agrees with plan. All questions addressed at this time. Consultation #1: Referral / Consult Name: Mario Roy DPM Call Returned at: 16:02 Note: Discussed pt's case with Pt's tipple engineer. Have pt f/u in office on sunday. Pt does not need to be admitted or surgery. Can be discharged on PO abx. Consultation #2: Referral / Consult Name: Ramon Hwang MD Call Returned at: 16:40 Note: Discussed pt's case with infectious disease. Agrees with linezolid and flagyl. Counseled Regarding: Diagnosis, Lab results, Need for follow-up, When/why to return to ED Discharge & Departure Impression: Primary Impression: Diabetic foot ulcer Diabetic foot ulcer location: unspecified part of foot Diabetes mellitus type : other specified (including GRISELDA) Laterality: unspecified laterality Non- pressure ulcer stage: unspecified non-pressure ulcer stage Qualified Code: E13.621 - Other specified diabetes mellitus with foot ulcer Additional Impressions: Toe pain, left Diabetic ulcer of left great toe Type II diabetes mellitus Diabetes mellitus complication status: with unspecified complications Diabetes mellitus senior living insulin use: unspecified long term care social worker insulin use status Qualified Code: E11.8 - Type 2 diabetes mellitus with unspecified complications Tobacco abuse History of elopement from health care facility Disposition: Home Discharge Condition All VS Reviewed: Yes Condition: Stable Additional Instructions: Thank you for seeking care at the emergency room. Our primary goal today in the ED was to evaluate you for any life-threatening conditions. Your evaluation was reassuring. I consulted with your in-patient care team, Dr. Roy, and reviewed by Dr. Hwang. We are all in agreement that you can be managed as an out-patient with close follow up. Dr. Roy a few in his office on Sunday morning. Please call him first thing on Sunday for appointment time. Please keep your wounds clean and dry. Wear your flat soled shoe as instructed. Elevate the affected foot to decrease swelling. You will be discharged with a prescription for antibiotics. Please take them as prescribed until the course is completed. You should return to the ED immediately if you develop increasing pain, fevers, vomiting, cough, shortness of breath, chest pain, lightheadedness, weakness, increasing signs of infection including increased redness, swelling, or any other concerning signs or symptoms. Thank you for letting us partake in your care today. Referrals: Juan M Hull MD (PCP) [place] Attestation Portions of this note were transcribed by Trevon Valdez. I, Dr. Perera personally performed the history, physical exam and medical decision-making; I reviewed and confirmed the accuracy of the information in the transcribed note. Signed by: Destiny Narvaez, 02/10/17 copies to: Juan M Hull MD, Beck O MD Feb 10, 2017 15:20 TREVON VALDEZ Feb 10, 2017 15:51
[2017-02-10] MEDS ORDERED: CLIN-78 PO (16:21)
[2017-02-10] MEDS ORDERED: METR500T PO (16:30)
[2017-02-10 17:17] VITALS: BP 167/83; PULSE 88; RESP 14; O2SAT 99
[2017-02-14] MEDS ORDERED: HYDR2TAB28 PO (17:27)
== END 2017-02-10 17:00 | disposition home or self-care (01) ==
LOC: SED 14:55
DX: E13.621 Other specified diabetes mellitus with foot ulcer (principal); L97.529 Non-pressure chronic ulcer of other part of left foot with unspecified severity; F17.210 Nicotine dependence, cigarettes, uncomplicated; I10 Essential (primary) hypertension; I25.10 Atherosclerotic heart disease of native coronary artery without angina pectoris; J45.909 Unspecified asthma, uncomplicated; E78.5 Hyperlipidemia, unspecified; Z86.79 Personal history of other diseases of the circulatory system; Z91.14 Patient's other noncompliance with medication regimen; Z79.4 Long term (current) use of insulin; Z88.8 Allergy status to other drugs, medicaments and biological substances; Z88.6 Allergy status to analgesic agent